=== PATIENT | male | born 1955 | race Caucasian/White ===

== ENCOUNTER 2019-10-31 06:25 | Inpatient (IN) | payer BC, OTHER ==
[~2019-10-31] VITALS: Ht 177.8 cm; Wt 75.0 kg
[2019-10-31] VITALS (20 sets, daily range): BP systolic 102–145; BP diastolic 53–98
[~2019-10-31 06:25] MED LIST: AMLO10TA8 PO; ASPI-630 PO; FLUT1DIS IH; LOSA-73 PO; MULT-18 PO; OMEG1CAP30 PO
[2019-10-31] MEDS ORDERED: MIDAZOLAM HCL/PF 2 MG/2 ML VIAL. IV ONE (06:30)
[2019-10-31] MEDS ORDERED: LIDOCAINE 1% Multi-Dose 20 ML VIAL. INJ ONE (06:30)
[2019-10-31] MEDS: fentaNYL PF VIAL 100 MCG/2 ML VIAL IV ONE ×2 (06:30→06:34)
[2019-10-31] MEDS ORDERED: BIVALIRUDIN 250 MG VIAL. IV ONE (06:40)
[2019-10-31] MEDS ORDERED: NITROGLYCERIN 200 MCG/2 ML SYRINGE FOR CATH/VASC LAB. IART ONE (06:40)
[2019-10-31] MEDS ORDERED: TICAGRELOR 90 MG TABLET. PO ONE (06:55)
[2019-10-31] MEDS: IODIXANOL 320 MG/ML 100 ML VIAL. IART ONE (07:00)
[2019-10-31] MEDS ORDERED: fentaNYL PF VIAL 100 MCG/2 ML VIAL ONE (08:42)
[2019-10-31] MEDS ORDERED: fentaNYL PF VIAL 100 MCG/2 ML VIAL IVP PRN (09:00)
[2019-10-31] MEDS ORDERED: CONTRAST GIVEN. MC PRN (09:00)
[2019-10-31] MEDS: IV 1/2 NORMAL SALINE 1,000 ML IV SCH ×2 (09:34→20:36)
--- NOTE | 2019-10-31 09:34 | PDOC ---
MODERATE SEDATION ASSESSMENT RISKS/ALTERNATIVES Risks/Alternatives Risks and alternatives of this type of sedation and procedure discussed with: RISK/ALTERNATIVES: Patient H & P ON CHART H & P H & P on chart and reviewed for co-morbid conditions and appropriate labs. H&P ON CHART: Yes STATUS PREG STATUS ASSESSED: N/A MEDS/ALLERGIES REVIEWED Meds/Allergies Reviewed Medications and Allergies including time and route of recently administered narcotics and sedatives. MEDS/ALLERGIES REVIEWED: Yes ASA RATING ASA RATING: III AIRWAY ASSESSMENT Airway Assessment Airway patency, oral function limitations, presence of caps, crowns, dentures, partials, and ability to extend neck assessed. AIRWAY ASSESSMENT: Yes MALLAMPATI SCORE MALLAMPATI SCORE: II PRE-SEDATION ASSESSMENT PRE-SEDATION ASSESSMENT: Yes KEDAR SANTCARUZ MD Oct 31, 2019 09:34
--- NOTE | 2019-10-31 09:37 | PDOC2 ---
CONSULT Date of Consult Date of Consult DATE: 10/31/19 TIME: 09:37 Reason for Consult Reason for Consult: Acute STEMI Identification/Chief Complaint Chief Complaint Chest pain Source Source: Chart review, Patient History of Present Illness Reason for Visit: 64-year-old male initially presented to [facility] with retrosternal chest pressure, 10/10 severity associated with mild shortness of breath that started at 2 AM today. He was found to have ST elevations in anterior leads and was transferred to [facility] after activating code STEMI. He denied any previous history of coronary artery disease. He also denied any orthopnea/PND, palpitations or syncope. Of note, he was recently admitted to [facility] for CHF throught to be acute on chronic diastolic HF. 2D echo at that showed EF 50-55%. He was DC'd with plans for outpatient ischemic evaluation. Past Medical History Past Medical History Hypertension PAD TIA Family History Family History Hypertension Social History Social History Patient smokes 2 pack cigarettes daily and stated that he quit 2 weeks ago. He has a history of heavy alcohol abuse and drinks approximately 6 pack of beer every day. He denied any drug abuse. Current Medications Current Medications Current Medications Fentanyl Citrate (Fentanyl 2ml Vial) 50 mcg PRN Q2HR PRN IVP PAIN Last administered on 10/31/19at 09:11; Start 10/31/19 at 09:00 Nitroglycerin (Nitroglycerin) 200 mcg 1X ONCE IART Last administered on 10/31/19at 06:50; Start 10/31/19 at 06:40; Stop 10/31/19 at 08:58; Status DC Heparin Sodium/ Sodium Chloride (HEPARIN for ARTERIAL LINE FLUSH) 1,000 unit 1X ONCE IART Last administered on 10/31/19at 06:30; Start 10/31/19 at 06:30; Stop 10/31/19 at 08:58; Status DC Heparin Sodium/ Sodium Chloride (HEPARIN for ARTERIAL LINE FLUSH) 1,000 unit 1X ONCE IART Last administered on 10/31/19at 06:30; Start 10/31/19 at 06:30; Stop 10/31/19 at 08:58; Status DC Midazolam HCl (Versed) 2 mg 1X ONCE IV Last administered on 10/31/19at 06:34; Start 10/31/19 at 06:30; Stop 10/31/19 at 08:58; Status DC Fentanyl Citrate (Fentanyl 2ml Vial) 100 mcg 1X ONCE IV Last administered on 10/31/19at 06:30; Start 10/31/19 at 06:30; Stop 10/31/19 at 08:58; Status DC Iodixanol (Visipaque 320) 100 ml 1X ONCE IART Last administered on 10/31/19at 07:00; Start 10/31/19 at 07:00; Stop 10/31/19 at 08:58; Status DC Bivalirudin (Angiomax) 250 mg 1X ONCE IV Last administered on 10/31/19at 06:40; Start 10/31/19 at 06:40; Stop 10/31/19 at 08:58; Status DC Ticagrelor (Brilinta) 180 mg 1X ONCE PO Last administered on 10/31/19at 07:20; Start 10/31/19 at 06:55; Stop 10/31/19 at 08:58; Status DC Lidocaine HCl (Lidocaine 1% 20ml Vial) 20 ml 1X ONCE INJ Last administered on 10/31/19at 06:30; Start 10/31/19 at 06:30; Stop 10/31/19 at 08:58; Status DC Info (CONTRAST GIVEN -- Rx MONITORING) 1 each PRN DAILY PRN MC SEE COMMENTS; Start 10/31/19 at 09:00; Stop 11/02/19 at 08:59 Active Scripts Active Reported Daily Vitamin (Multivitamin) 1 Each Tablet 1 Each PO Advair 100-50 Diskus (Fluticasone/Salmeterol) 1 Each Disk.w.dev 1 Puff IH BID Aspirin 81 Mg Tab.chew 1 Tab PO DAILY Amlodipine Besylate 10 Mg Tablet 1 Tab PO DAILY Losartan Potassium 50 Mg Tablet 1 Tab PO DAILY Allergies Allergies: Coded Allergies: No Known Drug Allergies (Unverified , 05/29/14) ROS PSYCHOLOGICAL ROS: No: Hallucinations Eyes: No Loss of vision HEENT: No: Epistaxis Respiratory: YES: Shortness of breath; No: Hemoptysis Cardiovascular: yes Chest Pain Genitourinary: No Hematuria Neurological: No Seizures Skin: No Rash Physical Exam General: Alert, Oriented X3 HEENT: Atraumatic Lungs: Clear to auscultation Heart: Regular rate Abdomen: Soft, No tenderness Extremities: No edema Psych/Mental Status: Mood NL Vitals VITALS Vital Signs Date Time Temp Pulse Resp B/P (MAP) Pulse Ox O2 Delivery O2 Flow Rate FiO2 10/31/19 09:11 20 99 Nasal Cannula 2.0 10/31/19 08:49 70 Assessment/Plan Assessment/Plan 1. Acute anterior wall ST elevation myocardial infarction: We will proceed with emergent cardiac catheterization and primary PCI/stent placement. Risks and benefits were explained and he is agreeable. Start aspirin, heparin, beta- blockers and statins. 2. Hypertension: Controlled 3. Tobacco and alcohol abuse: Advised on complete cessation Thank you for your consultation KEDAR SANTACRUZ MD Oct 31, 2019 09:37
[2019-10-31] MEDS ORDERED: NITROGLYCERIN SUBLINGUAL 0.4 MG BOTTLE OF 25. SL PRN (09:45)
[2019-10-31] MEDS ORDERED: ACETAMINOPHEN 325 MG TABLET. PO PRN (09:45)
[2019-10-31] MEDS ORDERED: FUROSEMIDE 40 MG/4 ML VIAL. IVP ONE (15:45)
[2019-10-31] MEDS: METOPROLOL TART IMMED RELEASE 25 MG TABLET. PO SCH (20:35)
[2019-10-31] MEDS: ATORVASTATIN CALCIUM 20 MG TABLET PO SCH (20:35)
[2019-11-01] VITALS (26 sets, daily range): BP systolic 99–145; BP diastolic 47–80
[2019-11-01] MEDS: IV 1/2 NORMAL SALINE 1,000 ML IV SCH (06:20)
--- NOTE | 2019-11-01 07:50 | CARD ---
MR#: [id number] Date of Study: 10/31/2019 Ordering Physician: KEDAR SANTACRUZ, Referring Physician: KEDAR SANTACRUZ Tech: Dione Olivares RDCS APPROVED REPORT EXAM: LIMITED Two-dimensional echocardiogram Other Information Quality : Good INDICATION LV Function:Systolic STEMI; Previous echo at [place] 10/19/19 LEFT VENTRICLE Severe hypokinesis of mid to distal anteroseptal wall and apical wall. Ejection fraction estimated at 35%. PERICARDIAL EFFUSION There is no evidence of significant pericardial effusion. Critical Notification Critical Value: No <Conclusion> Severe hypokinesis of mid to distal anteroseptal wall and apical wall. Ejection fraction estimated at 35%. There is no evidence of significant pericardial effusion. Signed by : Kedar Santacruz, Electronically Approved : 11/01/2019 07:50:00
[2019-11-01] MEDS: TICAGRELOR 90 MG TABLET. PO SCH ×2 (08:21→21:04)
[2019-11-01] MEDS: METOPROLOL TART IMMED RELEASE 25 MG TABLET. PO SCH ×2 (08:21→21:04)
[2019-11-01] MEDS: ASPIRIN ENTERIC COATED 81 MG TABLET.DR. PO SCH (08:21)
[2019-11-01] MEDS ORDERED: LIDOCAINE 1% PF 2 ML VIAL. ONE (10:10)
[2019-11-01] MEDS ORDERED: IODIXANOL 320 MG/ML 100 ML VIAL. ONE ×2 (10:10→12:17)
[2019-11-01] MEDS ORDERED: NITROGLYCERIN 200 MCG/2 ML SYRINGE FOR CATH/VASC LAB. ONE (10:36)
[2019-11-01] MEDS ORDERED: HEPARIN for IV BOLUS 10,000 UNIT/10 ML VIAL. ONE (10:36)
[2019-11-01] MEDS ORDERED: fentaNYL PF VIAL 100 MCG/2 ML VIAL ONE (10:36)
[2019-11-01] MEDS ORDERED: MIDAZOLAM HCL/PF 5 MG/5 ML VIAL. ONE (10:36)
[2019-11-01] MEDS ORDERED: VERAPAMIL 5 MG/2 ML VIAL. ONE (10:36)
[2019-11-01] MEDS ORDERED: BIVALIRUDIN 250 MG VIAL. IV ONE ×2 (11:07→11:45)
[2019-11-01] MEDS ORDERED: IODIXANOL 320 MG/ML 100 ML VIAL. IART ONE (11:45)
[2019-11-01] MEDS ORDERED: VERAPAMIL 5 MG/2 ML VIAL. IART ONE (11:45)
[2019-11-01] MEDS ORDERED: MIDAZOLAM HCL/PF 5 MG/5 ML VIAL. IV ONE (11:45)
[2019-11-01] MEDS ORDERED: LIDOCAINE 1% PF 2 ML VIAL. INJ ONE (11:45)
[2019-11-01] MEDS ORDERED: fentaNYL PF VIAL 100 MCG/2 ML VIAL IV ONE (11:45)
[2019-11-01] MEDS ORDERED: NITROGLYCERIN 200 MCG/2 ML SYRINGE FOR CATH/VASC LAB. IART ONE (11:45)
[2019-11-01] MEDS ORDERED: HEPARIN for IV BOLUS 10,000 UNIT/10 ML VIAL. IART ONE (11:45)
[2019-11-01] MEDS ORDERED: CONTRAST GIVEN. MC PRN (12:00)
[2019-11-01] MEDS ORDERED: NITROGLYCERIN 200 MCG/2 ML SYRINGE FOR CATH/VASC LAB. ICAR ONE (12:30)
--- NOTE | 2019-11-01 12:45 | PDOC ---
MODERATE SEDATION ASSESSMENT RISKS/ALTERNATIVES Risks/Alternatives Risks and alternatives of this type of sedation and procedure discussed with: RISK/ALTERNATIVES: Patient H & P ON CHART H & P H & P on chart and reviewed for co-morbid conditions and appropriate labs. H&P ON CHART: Yes STATUS PREG STATUS ASSESSED: N/A MEDS/ALLERGIES REVIEWED Meds/Allergies Reviewed Medications and Allergies including time and route of recently administered narcotics and sedatives. MEDS/ALLERGIES REVIEWED: Yes ASA RATING ASA RATING: III AIRWAY ASSESSMENT Airway Assessment Airway patency, oral function limitations, presence of caps, crowns, dentures, partials, and ability to extend neck assessed. AIRWAY ASSESSMENT: Yes MALLAMPATI SCORE MALLAMPATI SCORE: II PRE-SEDATION ASSESSMENT PRE-SEDATION ASSESSMENT: Yes KEDAR SANTACRUZ MD Nov 01, 2019 12:45
[2019-11-01] MEDS ORDERED: IV 1/2 NORMAL SALINE 1,000 ML IV SCH (12:46)
[2019-11-01] MEDS ORDERED: 0.9 % SODIUM CHLORIDE 10 ML DISP.SYRIN. IV PRN (13:00)
[2019-11-01] MEDS ORDERED: ACETAMINOPHEN 325 MG TABLET. PO PRN (13:00)
--- NOTE | 2019-11-01 14:44 | CARD ---
MR#: [id number] Date of Study: 11/01/2019 Ordering Physician: KEDAR SANTACRUZ, Referring Physician: KEDAR SANTACRUZ, Tech: KIA DIAMOND RTR APPROVED REPORT Technologist: KIA DIAMOND RTR Nurse: Madelaine Pal R.N. Procedure(s) performed: Successful PCI/drug-eluting stent placement to right coronary artery MODERATE SEDATION TIME: 71 MINUTES FLUORO TIME: 27.3 MIN DOSE: 87.5 GYCM2 CONTRAST: 122CC VISI INDICATION The indication(s) include : 64-year-old male underwent emergent PCI/FALGUNI to LAD in the setting of acut e STEMI on 10/31/2019. He presented today for staged PCI/FALGUNI to RCA.. [facility] Clinical Frailty Scale [facility] Clinical Frailty Scale: Managing Well Heart Failure Heart Failure: Yes If Yes, Newly Diagnosed: Yes If Yes, HF Type: Diastolic If Yes, NYHA Class: Class II PROCEDURE NARRATIVE After explaining the risks, benefits and alternative options, informed consent was obtained from johnny ent. Patient was brought to the cardiac Printer [facility] and his right wrist was prepped and draped in the u sual fashion after confirming a positive modified Brigido's test. Arterial access was obtained in the right radial artery and a 6 Bhutanese sheath was inserted. 6 Bhutanese JR4 guide catheter was used to enga ge the right coronary artery and selective angiography was performed that confirmed the previously de scribed along a calcified 90% stenosis in the midsegment and 80% stenosis in the distal segment. The stenosis and RCA were crossed with a 0.014 inch List[employer] pro-water guidewire. The lesions were pred ilated with a 3.0 x 12 mm Euphora balloon followed by [employer] NC emerge 3.0 x 15 mm noncomp liant balloon. The lesions were treated with overlapping 3.0 x 16 and 3.0 x 38 mm [employer] Promus Elite drug-eluting stents. Follow-up angiography showed resolution of the stenosis to 0% with good distal flow. The posterior descending branch had plaque shift resulting in complete closure. Attempts to cross the stent struts into the PDA using another pro-water wire were unsuccessful. Sinc e patient was chest pain-free, the PDA was small to medium caliber vessel and was beginning to show s lightly improved flow at the end of procedure, we decided to manage this medically. Patient tolerate d the procedure well. Hemostasis was achieved using TR band. There were no immediate complications. SOFI Flow SOFI Flow (Pre-Intervention): SOFI-2 SOFI Flow (Post-Intervention): SOFI-3 SOFI Flow SOFI Flow (Pre-Intervention): SOFI-2 SOFI Flow (Post-Intervention): SOFI-3 Conclusion Successful PCI/drug-eluting stents placement to the right coronary artery. Recommendations 1. Aspirin 81 mg daily 2. Ticagrelor 90 mg twice daily 3. Cardiovascular risk factor modification Signed by : Kedar Santacruz, Electronically Approved : 11/01/2019 14:44:09
--- NOTE | 2019-11-01 15:31 | NUR ---
SS following for discharge planning. SS reviewed pt chart and discussed with pt RN. Pt is from home with spouse and is currently on room air. Pt went to [facility]ou[facility] on 10/31/2019 and today. Possible discharge to home tomorrow. SS will continue to follow for discharge planning.
[2019-11-01] MEDS: ATORVASTATIN CALCIUM 20 MG TABLET PO SCH (21:04)
[2019-11-02] VITALS (11 sets, daily range): BP systolic 101–137; BP diastolic 56–78
[2019-11-02] MEDS: ASPIRIN ENTERIC COATED 81 MG TABLET.DR. PO SCH (09:04)
[2019-11-02] MEDS: TICAGRELOR 90 MG TABLET. PO SCH (09:04)
[2019-11-02] MEDS: METOPROLOL TART IMMED RELEASE 25 MG TABLET. PO SCH (09:05)
[2019-11-02] MEDS ORDERED: TICA90TA PO (12:25)
[2019-11-02] MEDS ORDERED: METO-239 PO (12:25)
[2019-11-02] MEDS ORDERED: ATOR20TA58 PO (12:25)
[2019-11-02] MEDS ORDERED: NITR0.4T24 SL (12:25)
--- NOTE | 2019-11-02 12:27 | DISCH ---
DISCHARGE INSTRUCTIONS Condition on Discharge Condition on Discharge: Stable Activity After Discharge Activity Instructions for Disc: Activity as tolerated, Avoid exertion Bathing Instructions: Shower-keep dressing dry, No Tub Bath until see Lifting Instructions after Dis: No heavy lifting, No pulling or pushing, Do not lift >10 pounds Diet after Discharge Diet after Discharge: Cardiac Diet Texture: Regular Liquid Texture: Thin Liquid Wound Incision Care Wound/Incision Care: Other, see below (See diagnosis specific handout) Contacting the after DC Call your doctor for: Concerns you may have Follow-Up Follow Up With: Dr. Morin 12/14/2019 ARIANE CURTIS APRN Nov 02, 2019 12:27
--- NOTE | 2019-11-02 14:30 | NUR ---
Discharge Note: [facility] Discharge instructions and discharge home medications reviewed with Patient and a copy given. All questions have been answered and understanding verbalized. The following instructions and handouts were given: Post heart cath and stent card Discontinued iv line and catheter intact. Patient discharged to home with self-care via private vehicle.
--- NOTE | 2019-11-02 19:05 | PDOC3 ---
Discharge Summary Visit Information Date of Admission: Oct 31, 2019 Date of Discharge: Nov 02, 2019 Admitting Diagnosis: Acute myocardial infarction Final Diagnosis Acute myocardial infarction Acute diastolic and systolic heart failure CAD Ischemic cardiomyopathy HTN HLP Tobacco and alcohol abuse Brief Hospital Course Allergies Allergies Coded Allergies Type Severity Reaction Last Updated Verified No Known Drug Allergies 05/29/14 No Vital Signs Vital Signs Date Time Temp Pulse Resp B/P (MAP) Pulse Ox O2 Delivery O2 Flow Rate FiO2 11/02/19 11:00 97.7 96 18 101/56 (71) 97 Room Air 97.7 11/01/19 12:37 2.0 Lab Results Laboratory Tests Test 11/01/19 05:00 Triglycerides Level 50 mg/dL (0-150) Cholesterol Level 119 mg/dL (0-200) LDL Cholesterol, Calculated 69 mg/dL (0-100) VLDL Cholesterol, Calculated 10 mg/dL (0-40) Non-HDL Cholesterol Calculated 79 mg/dL (0-129) HDL Cholesterol 40 mg/dL (40-60) Cholesterol/HDL Ratio 3.0 Brief Hospital Course Mr. Mejia is a 64 old male who initially presented to [facility] with CP and was diagnosed with acute anterior wall myocardial infarction. He was transferred to [facility] where he underwent cardiac cath that showed severe 2V CAD. He underwent primary PCI/FALGUNI to LAD and subsequent staged PCI/FALGUNI to RCA. His LVEF was 35% on 2D echo. He was hemodynamically stable and CP free at the time of DC. He will follow up with our office in one month. Plan to repeat echo in 3 mos to determine need for AICD implantation. We will refer patient for cardiac rehabilitation. Discharge Information Condition at Discharge: Stable Follow Up: Months (1) Disposition/Orders: D/C to Home Scheduled Aspirin (Aspirin) 81 Mg Tab.chew, 1 TAB PO DAILY, #90 Ref 3 (Reported) Entered as Reported by: CRISTAL ELDER on 05/29/14 08 Last Action: Reviewed on 10/31/19 08 by SCOTT ACKERMAN Atorvastatin Calcium (Atorvastatin Calcium) 20 Mg Tablet, 40 MG PO QHS for coronary artery disease, meek for 30 Days, #60 Ref 3 Prescribed by: ARIANE CURTIS APRN on 11/02/19 1225 Fluticasone/Salmeterol (Advair 100-50 Diskus) 1 Each Disk.w.dev, 1 PUFF IH BID, #1 Ref 3 (Reported) Entered as Reported by: CRISTAL ELDER on 05/29/14823 Last Action: Reviewed on 10/31/19848 by SCOTT ACKERMAN Losartan Potassium (Losartan Potassium) 50 Mg Tablet, 1 TAB PO DAILY, #90 Ref 3 (Reported) Entered as Reported by: CRISTAL ELDER on 05/29/14823 Last Action: Reviewed on 10/31/19848 by SCOTT ACKERMAN Metoprolol Succinate (Metoprolol Succinate ( Xl )) 25 Mg Tab.er.24h, 50 MG PO DAILY for CHF, CAD for 30 Days, #60 Ref 3 Prescribed by: ARIANE CURTIS APRN on 11/02/19 1225 Ticagrelor (Brilinta) 90 Mg Tablet, 90 MG PO BID for coronary artery disease for 30 Days, #60 Ref 3 Prescribed by: ARIANE CURTIS APRN on 11/02/19 1225 Scheduled PRN Nitroglycerin (Nitrostat) 0.4 Mg Tab.subl, 0.4 MG SL PRN Q5MIN PRN for CHEST PAIN for 30 Days, #30 Ref 1 Prescribed by: ARIANE CURTIS APRN on 11/02/19 1225 Miscellaneous Medications Multivitamin (Daily Vitamin) 1 Each Tablet, 1 EACH PO, (Reported) Entered as Reported by: CRISTAL ELDER on 05/29/14823 Last Action: Reviewed on 10/31/19848 by SCOTT ACKERMAN Discontinued Medications Amlodipine Besylate (Amlodipine Besylate) 10 Mg Tablet, 1 TAB PO DAILY, #90 Ref 3 (Reported) Entered as Reported by: CRISTAL ELDER on 05/29/14823 Last Action: Reviewed on 10/31/19848 by SCOTT ACKERMAN Justicifation of Admission Dx: Justifications for Admission: Justification of Admission Dx: Yes MN: Acute STEMI KEDAR SANTACRUZ MD Nov 02, 2019 19:05
== END 2019-11-02 13:12 | disposition home or self-care (01) | DRG 246 ==
LOC: 1 WEST ICU 06:25 → 2 SOUTH 11-02 10:10
PROVIDERS: ADMIT Internal Medicine Cardiovascular Disease; ATTEND Internal Medicine Cardiovascular Disease
PROC: 027035Z Dilation of Coronary Artery, One Artery with Two Drug-eluting Intraluminal Devices, Percutaneous Approach (ICD-10-PCS; principal; 2019-11-01)
PROC: B2101ZZ Fluoroscopy of Single Coronary Artery using Low Osmolar Contrast (ICD-10-PCS; 2019-11-01)
DX: I21.09 ST elevation (STEMI) myocardial infarction involving other coronary artery of anterior wall (principal); I50.43 Acute on chronic combined systolic (congestive) and diastolic (congestive) heart failure; E78.5 Hyperlipidemia, unspecified; F10.10 Alcohol abuse, uncomplicated; I11.0 Hypertensive heart disease with heart failure; I25.10 Atherosclerotic heart disease of native coronary artery without angina pectoris; I25.5 Ischemic cardiomyopathy; Z82.49 Family history of ischemic heart disease and other diseases of the circulatory system; Z86.73 Personal history of transient ischemic attack (TIA), and cerebral infarction without residual deficits; Z87.891 Personal history of nicotine dependence; I73.9 Peripheral vascular disease, unspecified
CPT/HCPCS: 36415; 80061; 92928; 93308; 99152; 99153; C1725; C1769; C1874; C1887; C1892; J0583; J1644; J1940; J2250; J3010; J3490; Q9967; C1713; G0378

== ENCOUNTER → 2019-12-13 | Outpatient (CLI) | payer BC ==
[2019-11-02 11:00] VITALS: BP 101/56
[~2019-12-13] MED LIST changes: +ATOR20TA58 PO; +METO-239 PO; +NITR0.4T24 SL; +TICA90TA PO
== END ==
LOC: LAB 14:00
PROVIDERS: ATTEND Internal Medicine Cardiovascular Disease
DX: Z20.828 Contact with and (suspected) exposure to other viral communicable diseases (principal)
CPT/HCPCS: U0003-CS

== ENCOUNTER 2019-12-15 08:33 | Inpatient (IN) | payer BC ==
[2019-12-15] VITALS (13 sets, daily range): BP systolic 92–133; BP diastolic 50–69
[~2019-12-15] VITALS: Ht 175.3 cm; Wt 73.0 kg
[~2019-12-15 08:33] MED LIST changes: +HEPARIN for ARTERIAL LINE 0 ML ONE; +IODIXANOL 320 MG/ML 100 ML VIAL. ONE; +LIDOCAINE 1% Multi-Dose 20 ML VIAL. ONE
[2019-12-15 09:11] LABS: RED BLOOD COUNT 3.31 x10^6/uL (4.30-5.70); RED CELL DISTRIBUTION WIDTH 19.9 % (11.5-14.5)
[2019-12-15 09:19] LABS: CALCIUM 8.6 mg/dL (8.5-10.1); CREATININE 1.1 mg/dL (0.7-1.3); GFR 67.8; POTASSIUM 4.3 mmol/L (3.5-5.1)
[2019-12-15 09:26] LABS: PROTHROMBIN TIME PATIENT 13.8 SEC (11.7-14.0)
[2019-12-15 09:38] LABS: HEMOGLOBIN 6.2 g/dL (13.0-17.5)
[2019-12-15 09:39] LABS: HEMATOCRIT 20.9 % (39.0-53.0)
--- NOTE | 2019-12-15 09:54 | PDOC1 ---
History and Physical Date of Admission Date of Admission DATE: 12/15/19 TIME: 09:53 Identification/Chief Complaint Chief Complaint SEEN IN [facility] FOR ANGIOGRAM, CANCELLED DUE TO SEVERE ANEMIA, TRANSFUSED 2 UNITS Stent(s) placement in 10/2019 on Brilinta and ASA and h/o PVD w/ RLE pain here for femoral runoff which was cancelled due to anemia. Denies hematemesis, hematochezia, and melena Past Medical History Cardiovascular: CAD, HTN Family History Family History: High Cholestrol, Hypertension Social History Smoke: Quit ALCOHOL: none Drugs: None Current Medications Current Medications Current Medications Iodixanol (Visipaque 320) 100 ml STK-MED ONCE .ROUTE ; Start 12/15/19 at 07:47; Stop 12/15/19 at 07:47; Status DC Lidocaine HCl (Lidocaine 1% 20ml Vial) 20 ml STK-MED ONCE .ROUTE ; Start 12/15/19 at 07:47; Stop 12/15/19 at 07:47; Status DC Heparin Sodium/ Sodium Chloride 0 ml @ As Directed STK-MED ONCE .ROUTE ; Start 12/15/19 at 07:47; Stop 12/15/19 at 07:48; Status DC Sodium Chloride 1,000 ml @ 60 mls/hr [id number] IV ; Start 12/15/19 at 08:49; Stop 12/16/19 at 08:48 Active Scripts Active Metoprolol Succinate ( Xl ) (Metoprolol Succinate) 25 Mg Tab.er.24h 50 Mg PO DAILY 30 Days Nitrostat (Nitroglycerin) 0.4 Mg Tab.subl 0.4 Mg SL PRN Q5MIN PRN 30 Days Atorvastatin Calcium 20 Mg Tablet 40 Mg PO QHS 30 Days Brilinta (Ticagrelor) 90 Mg Tablet 90 Mg PO BID 30 Days Reported Daily Vitamin (Multivitamin) 1 Each Tablet 1 Each PO Advair 100-50 Diskus (Fluticasone/Salmeterol) 1 Each Disk.w.dev 1 Puff IH BID Aspirin 81 Mg Tab.chew 1 Tab PO DAILY Losartan Potassium 50 Mg Tablet 1 Tab PO DAILY Allergies Allergies: Coded Allergies: No Known Drug Allergies (Unverified , 05/29/14) ROS General: No: Chills, Night Sweats, Fatigue, Malaise, Appetite, Other PSYCHOLOGICAL ROS: No: Anxiety, Behavioral Disorder, Concentration difficultie, Decreased libido, Depression, Disorientation, Hallucinations, Hostility, Irritablity, Memory difficulties, Mood Swings, Obsessive thoughts, Physical abuse, Sexual abuse, Sleep disturbances, Suicidal ideation, Other Eyes: No Blurry vision, No Decreased vision, No Double vision, No Dry eyes, No Excessive tearing, No Eye Pain, No Itchy Eyes, No Loss of vision, No Photophobia, No Scotomata, No Uses contacts, No Uses glasses, No Other HEENT: No: Heacaches, Visual Changes, Hearing change, Nasal congestion, Nasal discharge, Oral lesions, Sinus pain, Sore Throat, Epistaxis, Sneezing, Snoring, Tinnitus, Vertigo, Vocal changes, Other ALLERGY AND IMMUNOLOGY: No: Hives, Insect Bite Sensitivity, Itchy/Watery Eyes, Nasal Congestion, Post Nasal Drip, Seasonal Allergies, Other Hematological and Lymphatic: YES: Bleeding Problems; No: Blood Clots, Blood Transfusions, Brusing, Night Sweats, Pallor, Swollen Lymph Nodes, Other ENDOCRINE: No: Breast Changes, Galactorrhea, Hair Pattern Changes, Hot Flashes, Malaise/lethargy, Mood Swings, Palpitations, Polydipsia/polyuria, Skin Changes, Temperature Intolerance, Unexpected Weight Changes, Other Breast: No New/Changing Breast Lumps, No Nipple changes, No Nipple discharge, No Other Respiratory: No: Cough, Hemoptysis, Orthopnea, Pleuritic Pain, Shortness of breath, SOB with excertion, Sputum Changes, Stridor, Tachypnea, Wheezing, Other Cardiovascular: No Chest Pain, No Palpitations, No Orthopnea, No Paroxysmal Noc. Dyspnea, No Edema, No Lt Headedness, No Other Gastrointestinal: No Nausea, No Vomiting, No Abdominal Pain, No Diarrhea, No Constipation, No Melena, No Hematochezia, No Other Genitourinary: No Dysuria, No Frequency, No Incontinence, No Hematuria, No Retention, No Discharge, No Urgency, No Pain, No Flank Pain, No Other, No , No , No , No , No , No , No Musculoskeletal: No Gait Disturbance, No Joint Pain, No Joint Stiffness, No Joint Swelling, No Muscle Pain, No Muscular Weakness, No Pain In:, No Swelling In:, No Other Neurological: No Behavorial Changes, No Bowel/Bladder ControlChng, No Confusion, No Dizziness, No Gait Disturbance, No Headaches, No Impaired Coord/balance, No Memory Loss, No Numbness/Tingling, No Seizures, No Speech Problems, No Tremors, No Visual Changes, No Weakness, No Other Skin: No Dry Skin, No Eczema, No Hair Changes, No Lumps, No Mole Changes, No Mottling, No Nail Changes, No Pruritus, No Rash, No Skin Lesion Changes, No Other, No Acne Physical Exam General: Alert, Oriented X3, Cooperative, No acute distress HEENT: PERRLA Lungs: Clear to auscultation, Normal air movement Heart: RRR Breasts: Normal, Rt breast nml w/o mass, Lt breast nml w/o mass, Nipples normal Abdomen: Normal bowel sounds, Soft, No tenderness, No hepatosplenomegaly, No masses Rectal Exam: not examined PELVIC: Examination not indicated Extremities: No cyanosis Neuro: Normal speech, Strength at 5/5 X4 ext, Cranial nerves 3-12 NL Psych/Mental Status: Mental status NL, Mood NL Vitals Vitals Vital Signs Date Time Temp Pulse Resp B/P (MAP) Pulse Ox O2 Delivery O2 Flow Rate FiO2 12/15/19 09:11 Room Air 12/15/19 09:08 98.5 82 20 106/63 (77) 98 98.5 Labs Labs Laboratory Tests Test 12/15/19 09:00 White Blood Count 10.0 x10^3/uL (4.0-11.0) Red Blood Count 3.31 x10^6/uL (4.30-5.70) Hemoglobin 6.2 g/dL (13.0-17.5) Hematocrit 20.9 % (39.0-53.0) Mean Corpuscular Volume 63 fL (79-100) Mean Corpuscular Hemoglobin 19 pg (25-35) Mean Corpuscular Hemoglobin Concent 30 g/dL (31-37) Red Cell Distribution Width 19.9 % (11.5-14.5) Platelet Count 422 x10^3/uL (140-400) Prothrombin Time 13.8 SEC (11.7-14.0) Prothromb Time International Ratio 1.1 (0.8-1.1) Sodium Level 131 mmol/L (136-145) Potassium Level 4.3 mmol/L (3.5-5.1) Chloride Level 98 mmol/L (98-107) Carbon Dioxide Level 24 mmol/L (21-32) Anion Gap 9 (6-14) Blood Urea Nitrogen 12 mg/dL (8-26) Creatinine 1.1 mg/dL (0.7-1.3) Estimated GFR (Cockcroft-Gault) 67.8 Glucose Level 99 mg/dL (70-99) Calcium Level 8.6 mg/dL (8.5-10.1) Laboratory Tests Test 12/15/19 09:00 White Blood Count 10.0 x10^3/uL (4.0-11.0) Red Blood Count 3.31 x10^6/uL (4.30-5.70) Hemoglobin 6.2 g/dL (13.0-17.5) Hematocrit 20.9 % (39.0-53.0) Mean Corpuscular Volume 63 fL (79-100) Mean Corpuscular Hemoglobin 19 pg (25-35) Mean Corpuscular Hemoglobin Concent 30 g/dL (31-37) Red Cell Distribution Width 19.9 % (11.5-14.5) Platelet Count 422 x10^3/uL (140-400) Prothrombin Time 13.8 SEC (11.7-14.0) Prothromb Time International Ratio 1.1 (0.8-1.1) Sodium Level 131 mmol/L (136-145) Potassium Level 4.3 mmol/L (3.5-5.1) Chloride Level 98 mmol/L (98-107) Carbon Dioxide Level 24 mmol/L (21-32) Anion Gap 9 (6-14) Blood Urea Nitrogen 12 mg/dL (8-26) Creatinine 1.1 mg/dL (0.7-1.3) Estimated GFR (Cockcroft-Gault) 67.8 Glucose Level 99 mg/dL (70-99) Calcium Level 8.6 mg/dL (8.5-10.1) Images Images APPROVED REPORT Technologist: RT Veena (R) Nurse: Tracey Randhawa RN Procedure(s) performed: 1. Left heart catheterization, selective coronary angiography 2. Successful PCI/drug-eluting stent placement to the left anti-descending artery FLUORO TIME: 11.2 MIN DOSE: 124 Gycm2 Contrast: 174 ml Moderate Sedation: 50 min INDICATION The indication(s) include : Acute anterior wall ST elevation myocardial infarction. CSHA Clinical Frailty Scale CSHA Clinical Frailty Scale: Managing Well Heart Failure Heart Failure: Yes If Yes, Newly Diagnosed: No If Yes, HF Type: Diastolic If Yes, NYHA Class: Class II PROCEDURE NARRATIVE After explaining the risks, benefits and alternative options, informed consent was obtained for patient. Patient was brought to the cardiac Management Services Technician and his right groin was prepped and draped in the usual fashion. 20 cc of 2% lidocaine was infiltrated into the skin and subcutaneous tissues for local anesthesia. Arterial access was obtained in the right common femoral artery with a 6 Mauritanian sheath was inserted. 6 [place]ian JL 4 and 6 [place] JR4 catheters were used to perf orm selective angiography of the left and right coronary arteries. 6 [place]ian pigtail catheter was used to measure LVEDP and transaortic gradients. Left ventriculography was not performed due to elevated EDP. The following findings were noted: FINDINGS 1. Hemodynamics: Elevated left ventricular end-diastolic pressure of 40 mmHg consistent with acute diastolic heart failure. No pullback gradient across the aortic valve. 2. Coronary angiography: a. The left main coronary artery arose from the left sinus of Valsalva, gave rise to the left anterior descending and left circumflex arteries and did not show any significant stenosis. b. The left anterior descending artery showed calcified 100% occlusion in the midsegment. c. The left circumflex artery did not show any significant stenosis. d. The right coronary artery was a large and dominant vessel arising from the right sinus of Valsalva and showed 90% stenosis with ulcerated plaque in the midsegment and 80% stenosis in the distal segment. INTERVENTION Left main coronary artery was engaged with a 6 [place]ian XB 3.5 guide catheter and the stenosis in the midsegment of the left anterior descending artery was crossed with a 0.014 inch [employer] pro-water guidewire. This was predilated with a 2.5 x 12 mm trek balloon. Subsequently, this was successfully treated with a 2.75 x 28 mm Xience drug eluting stent. Follow-up angiography showed resolution of the stenosis to 0% with SOFI-3 distal flow. Patient tolerated the procedure well. Hemostasis was achieved using Angio-Seal. There were no immediate complications. SOFI Flow SOFI Flow (Pre-Intervention): OSFI-0 SOFI Flow (Post-Intervention): SOFI-3 Conclusion 1. Severe two-vessel coronary disease involving the left anterior descending artery and the right coronary artery as described above. 2. Significantly elevated LVEDP consistent with acute diastolic heart failure. 3. Successful PCI/drug-eluting stent placement to the left anterior descending artery. Technologist: KIA DIAMOND RTR Nurse: Madelaine Pal R.N. Procedure(s) performed: Successful PCI/drug-eluting stent placement to right coronary artery MODERATE SEDATION TIME: 71 MINUTES FLUORO TIME: 27.3 MIN DOSE: 87.5 GYCM2 CONTRAST: 122CC VISI INDICATION The indication(s) include : 64-year-old male underwent emergent PCI/FALGUNI to LAD in the setting of acute STEMI on 10/31/2019. He presented today for staged PCI/FALGUNI to RCA.. [facility] Clinical Frailty Scale [facility] Clinical Frailty Scale: Managing Well Heart Failure Heart Failure: Yes If Yes, Newly Diagnosed: Yes If Yes, HF Type: Diastolic If Yes, NYHA Class: Class II PROCEDURE NARRATIVE After explaining the risks, benefits and alternative options, informed consent was obtained from patient. Patient was brought to the cardiac Management Services Technician and his right wrist was prepped and draped in the usual fashion after confirming a positive modified Brigido's test. Arterial access was obtained in the right radial artery and a 6 Mauritanian sheath was inserted. 6 Mauritanian JR4 guide catheter was used to engage the right coronary artery and selective angiography was performed that confirmed the previously described along a calcified 90% stenosis in the midsegment and 80% stenosis in the distal segment. The stenosis and RCA were crossed with a 0.014 inch [employer] pro-water guidewire. The lesions were predilated with a 3.0 x 12 mm Euphora balloon followed by [employer] [place] emerge 3.0 x 15 mm noncompliant balloon. The lesions were treated with overlapping 3.0 x 16 and 3.0 x 38 mm [employer] Promus Elite drug-eluting stents. Follow-up angiography showed resolution of the stenosis to 0% with good distal flow. The posterior descending branch had plaque shift resulting in complete closure. Attempts to cross the stent struts into the PDA using another pro-water wire were unsuccessful. Since patient was chest pain- free, the PDA was small to medium caliber vessel and was beginning to show slightly improved flow at the end of procedure, we decided to manage this medically. Patient tolerated the procedure well. Hemostasis was achieved using TR band. There were no immediate complications. SOFI Flow SOFI Flow (Pre-Intervention): SOFI-2 SOFI Flow (Post-Intervention): SOFI-3 SOFI Flow SOFI Flow (Pre-Intervention): SOFI-2 SOFI Flow (Post-Intervention): SOFI-3 Conclusion Successful PCI/drug-eluting stents placement to the right coronary artery. Recommendations 1. Aspirin 81 mg daily 2. Ticagrelor 90 mg twice daily 3. Cardiovascular risk factor modification Signed by : Kedar Santacruz Electronically Approved : 11/01/2019 14:44:09 DICTATED and SIGNED BY: KEDAR SANTACRUZ MD DATE: 11/01/19 1241 MR#: [id number] Date of Study: 10/31/2019 Ordering Physician: KEDAR SANTACRUZ, Referring Physician: KEDAR SANTACRUZ, Tech: Dione Olivares RDCS APPROVED REPORT EXAM: LIMITED Two-dimensional echocardiogram Other Information Quality : Good INDICATION LV Function:Systolic STEMI; Previous echo at [place] 10/19/19 LEFT VENTRICLE Severe hypokinesis of mid to distal anteroseptal wall and apical wall. Ejection fraction estimated at 35%. PERICARDIAL EFFUSION There is no evidence of significant pericardial effusion. Critical Notification Critical Value: No <Conclusion> Severe hypokinesis of mid to distal anteroseptal wall and apical wall. Ejection fraction estimated at 35%. There is no evidence of significant pericardial effusion. Signed by : Gianna Marially Approved : 11/01/2019 07:50:00 DICTATED and SIGNED BY: KEDAR SANTACRUZ MD DATE: 10/31/19 7786 VTE Prophylaxis Ordered VTE Prophylaxis Devices: Yes VTE Pharmacological Prophylaxi: Contraindicated Assessment/Plan Assessment/Plan impression MARKED ANEMIA, POSSIBLE GI BLEED, MICROCYTIC CAD Ischemic cardiomyopathy HX Successful PCI/drug-eluting stents placement to the right coronary artery. 11/01/19 Severe hypokinesis of mid to distal anteroseptal wall and apical wall. Ejection fraction estimated at 35%.11/05 ECHO HTN HLP Tobacco and alcohol abuse PLAN ADMIT TRANSFUSE Consult DR MACDONALD CONSULT GI S top ASA and Brilinta, switch to Plavix. hold Plavix 2 days prior to endoscopy.EGD and colonoscopy as outpt. PROTONIX stopping alcohol use needed 76 min pt exam, chart review, > 50% of time spent with exam, chart review, pt care coordination is dpoa Using artificial nutrition and hydration near the end of life. If you are not able to eat, you may be fed through a feeding tube that is threaded through the nose down to your stomach. If tube feeding is still needed for an extended period, a feeding tube may be surgically inserted directly into your stomach. Hand feeding (sometimes called assisted oral feeding) is an alternative to tube feeding. This approach may have fewer risks, especially for people with dementia. If you are not able to drink, you may be provided with IV fluids. These are delivered through a thin plastic tube inserted into a vein. Artificial nutrition and hydration can be helpful if you are recovering from an illness. However, studies have shown that artificial nutrition toward the end of life does not meaningfully prolong life. Artificial nutrition and hydration may also be harmful if the dying body cannot use the nutrition properly. CPR (cardiopulmonary resuscitation) Ventilator use Artificial nutrition (tube feeding) and artificial hydration (IV, or intraven ous, fluids) Comfort care What is CPR? Cardiopulmonary resuscitation might restore your heartbeat if your heart stops or is in a life-threatening abnormal rhythm. It involves repeatedly pushing on the chest with force, while putting air into the lungs. This force has to be quite strong, and sometimes ribs are broken or a lung collapses. Electric shocks, known as defibrillation, and medicines might also be used as part of the process. The heart of a young, otherwise healthy person might resume beating normally after CPR. Often, CPR does not succeed in older adults who have multiple chronic illnesses or who are already frail. Using a ventilator as emergency treatment. Ventilators are machines that help you breathe. A tube connected to the ventilator is put through the throat into the trachea (windpipe) so the machine can force air into the lungs. Putting the tube down the throat is called intubation. Because the tube is uncomfortable, medicines are often used to keep you sedated while on a ventilator. If you are expected to remain on a ventilator for a long time, a doctor may perform a tracheotomy or "trach" (rhymes with "make"). During this bedside surgery, the tube is inserted directly into the trachea through a hole in the neck. For long- term help with breathing, a trach is more comfortable, and sedation is not needed. People using such a breathing tube are not able to speak without special help because exhaled air does not go past their vocal cords. Using artificial nutrition and hydration near the end of life. If you are not able to eat, you may be fed through a feeding tube that is threaded through the nose down to your stomach. If tube feeding is still needed for an extended period, a feeding tube may be surgically inserted directly into your stomach. Hand feeding (sometimes called assisted oral feeding) is an alternative to tube feeding. This approach may have fewer risks, especially for people with dementia. Justifications for Admission Other Justification TULIO HOLDER MD Dec 15, 2019 09:53
--- NOTE | 2019-12-15 11:01 | NUR ---
Dr Javier office called for consult, spoke to Lori, she will message Flor HIGGINS. MEJIA RN
--- NOTE | 2019-12-15 11:53 | PDOC2 ---
GI CONSULT Date of Service: DATE: 12/15/19 TIME: 11:43 Reason For Consult: anemia HPI: HPI: 64 y/o male w/ h/o CAD s/p stent(s) placement in 10/2019 on Brilinta and ASA and h/o PVD w/ RLE pain here for femoral runoff which was cancelled due to anemia. Denies hematemesis, hematochezia, and melena. Rare heartburn after eating Azeri food, maybe takes Rolaids sometimes. No dysphagia, n/v, abd pain, diarrhea, or constipation. Has lost some weight after he quit drinking soda. No previous EGD or colonoscopy, maybe had an UGI once. No GB, liver, pancreas, or PUD history. Rare NSAIDs. PMH: PMH: [place], CAD w/ stents, HTN, HLD, TIA, PVD knee surgery FH: Family History: No pertinent hx (denies GI cancers) Social History: Smoke: Quit (59 days ago) ALCOHOL: occassional Drugs: None ROS: GEN: Denies fevers, chills, sweats HEENT: Denies blurred vision, sore throat CV: Denies chest pain RESP: Denies shortness of air, cough GI: Per HPI : Denies hematuria, dysuria ENDO: +weight loss NEURO: Denies confusion, dizziness MSK: +RLE throbbing SKIN: Denies jaundice, pruritus Vitals: Vitals: Vital Signs Date Time Temp Pulse Resp B/P (MAP) Pulse Ox O2 Delivery O2 Flow Rate FiO2 12/15/19 09:11 Room Air 12/15/19 09:08 98.5 82 20 106/63 (77) 98 98.5 Labs: Labs: Laboratory Tests Test 12/15/19 09:00 White Blood Count 10.0 x10^3/uL (4.0-11.0) Red Blood Count 3.31 x10^6/uL (4.30-5.70) Hemoglobin 6.2 g/dL (13.0-17.5) Hematocrit 20.9 % (39.0-53.0) Mean Corpuscular Volume 63 fL (79-100) Mean Corpuscular Hemoglobin 19 pg (25-35) Mean Corpuscular Hemoglobin Concent 30 g/dL (31-37) Red Cell Distribution Width 19.9 % (11.5-14.5) Platelet Count 422 x10^3/uL (140-400) Prothrombin Time 13.8 SEC (11.7-14.0) Prothromb Time International Ratio 1.1 (0.8-1.1) Sodium Level 131 mmol/L (136-145) Potassium Level 4.3 mmol/L (3.5-5.1) Chloride Level 98 mmol/L (98-107) Carbon Dioxide Level 24 mmol/L (21-32) Anion Gap 9 (6-14) Blood Urea Nitrogen 12 mg/dL (8-26) Creatinine 1.1 mg/dL (0.7-1.3) Estimated GFR (Cockcroft-Gault) 67.8 Glucose Level 99 mg/dL (70-99) Calcium Level 8.6 mg/dL (8.5-10.1) Allergies: Coded Allergies: No Known Drug Allergies (Unverified , 05/29/14) PE: GEN: NAD HEENT: Atraumatic, PERRL LUNGS: diminished HEART: RRR ABD: NABS, S/ND/NT EXTREMITY: No edema SKIN: No rashes, no jaundice NEURO/PSYCH: A & O 3 A/P: A/P: Microcytic anemia - no obvious bleeding Rare heartburn Weight loss - attributed to stopping soda CRC screen - none CAD, PVD - cardiac stents placed in 10/2019 COVID negative 12/13/19 -- D/w cardiology - plans to stop ASA and Brilinta, switch to Plavix. May hold Plavix 2 days prior to endoscopy. Will pursue EGD and colonoscopy as outpt. Check iron for completeness sake. PPI for h/o heartburn. Agree w/ transfusion. Okay to eat per GI. MATIAS MAR Dec 15, 2019 11:53
[2019-12-15] MEDS: IV NORMAL SALINE 1000ML BAG 1,000 ML IV SCH (16:04)
[2019-12-15] MEDS ORDERED: NITROGLYCERIN SUBLINGUAL 0.4 MG BOTTLE OF 25. SL PRN (16:15)
[2019-12-15] MEDS ORDERED: CYCLOBENZAPRINE 10 MG TABLET. PO PRN (16:30)
[2019-12-15] MEDS ORDERED: FUROSEMIDE 20 MG/2 ML VIAL. IVP ONE (17:30)
--- NOTE | 2019-12-15 19:29 | PDOC2 ---
CONSULT Date of Consult Date of Consult DATE: 12/15/19 TIME: 19:28 Reason for Consult Reason for Consult: PAD Referring Physician Referring Physician: Dr. Kirk Identification/Chief Complaint Chief Complaint Claudication Source Source: Chart review, Patient History of Present Illness Reason for Visit: 64 y/o male who recently underwent staged PCI/FALGUNI top LAD and RCA and placed on DAPT with Brilinta presented for aortogram secondary to lifestyle limiting claudication. However pre-procedure labs showed Hgb 6.2 and hence procedure was canceled. He denied any hematemesis, melena or hematochezia. He denied any prior GI issues. He denied any chest pain, orthopnea/PND, palps or syncope. Past Medical History Cardiovascular: CAD, HTN Family History Family History: High Cholestrol, Hypertension Social History Quit ALCOHOL: none Drugs: None Current Medications Current Medications Current Medications Iodixanol (Visipaque 320) 100 ml STK-MED ONCE .ROUTE ; Start 12/15/19 at 07:47; Stop 12/15/19 at 07:47; Status DC Lidocaine HCl (Lidocaine 1% 20ml Vial) 20 ml STK-MED ONCE .ROUTE ; Start 12/15/19 at 07:47; Stop 12/15/19 at 07:47; Status DC Heparin Sodium/ Sodium Chloride 0 ml @ As Directed STK-MED ONCE .ROUTE ; Start 12/15/19 at 07:47; Stop 12/15/19 at 07:48; Status DC Sodium Chloride 1,000 ml @ 60 mls/hr [id number] IV Last administered on 12/15/19at 16:04; Start 12/15/19 at 08:49; Stop 12/16/19 at 08:48 Clopidogrel Bisulfate (Plavix) 75 mg DAILYWBKFT PO ; Start 12/16/19 at 08:00; Stop 12/17/19 at 07:59 Pantoprazole Sodium (Protonix) 40 mg DAILYAC PO ; Start 12/16/19 at 07:30; Stop 12/17/19 at 07:29 Atorvastatin Calcium (Lipitor) 40 mg QHS PO ; Start 12/15/19 at 21:00 Losartan Potassium (Cozaar) 50 mg DAILY PO ; Start 12/16/19 at 09:00 Metoprolol Succinate (Toprol Xl) 50 mg DAILY PO ; Start 12/16/19 at 09:00 Nitroglycerin (Nitrostat) 0.4 mg PRN Q5MIN PRN SL CHEST PAIN; Start 12/15/19 at 16:15 Non-Formulary Medication (Fluticasone/ Salmeterol (Advair 100-50 Diskus)) 1 puff BID IH ; Start 12/15/19 at 21:00; Status UNV Multivitamins (Thera M Plus) 1 tab DAILY PO ; Start 12/16/19 at 09:00 Albuterol Sulfate (Ventolin Neb Soln) 2.5 mg RTQID NEB ; Start 12/15/19 at 20:00 Budesonide (Pulmicort) 0.5 mg RTBID NEB ; Start 12/15/19 at 20:00 Cyclobenzaprine HCl (Flexeril) 5 mg PRN QHS PRN PO MUSCLE SPASMS; Start 12/15/19 at 16:30 Furosemide (Lasix) 20 mg 1X ONCE IVP Last administered on 12/15/19at 18:38; Start 12/15/19 at 17:30; Stop 12/15/19 at 17:31; Status DC Active Scripts Active Metoprolol Succinate ( Xl ) (Metoprolol Succinate) 25 Mg Tab.er.24h 50 Mg PO DAILY 30 Days Nitrostat (Nitroglycerin) 0.4 Mg Tab.subl 0.4 Mg SL PRN Q5MIN PRN 30 Days Atorvastatin Calcium 20 Mg Tablet 40 Mg PO QHS 30 Days Reported Daily Vitamin (Multivitamin) 1 Each Tablet 1 Each PO Advair 100-50 Diskus (Fluticasone/Salmeterol) 1 Each Disk.w.dev 1 Puff IH BID Aspirin 81 Mg Tab.chew 1 Tab PO DAILY Losartan Potassium 50 Mg Tablet 1 Tab PO DAILY Allergies Allergies: Coded Allergies: No Known Drug Allergies (Unverified , 05/29/14) ROS PSYCHOLOGICAL ROS: No: Hallucinations Eyes: No Loss of vision HEENT: No: Epistaxis Respiratory: No: Hemoptysis, Shortness of breath Cardiovascular: No Chest Pain Gastrointestinal: No Vomiting, No Diarrhea, No Melena Genitourinary: No Hematuria Neurological: No Seizures Skin: No Rash Physical Exam General: Alert, Oriented X3 HEENT: Atraumatic Lungs: Clear to auscultation Heart: Regular rate Abdomen: Soft Neuro: Normal speech Psych/Mental Status: Mood NL Vitals VITALS Vital Signs Date Time Temp Pulse Resp B/P (MAP) Pulse Ox O2 Delivery O2 Flow Rate FiO2 12/15/19 18:04 98.2 91 17 121/69 98.2 12/15/19 15:00 94 Room Air Labs Labs Laboratory Tests Test 12/15/19 09:00 White Blood Count 10.0 x10^3/uL (4.0-11.0) Red Blood Count 3.31 x10^6/uL (4.30-5.70) Hemoglobin 6.2 g/dL (13.0-17.5) Hematocrit 20.9 % (39.0-53.0) Mean Corpuscular Volume 63 fL (79-100) Mean Corpuscular Hemoglobin 19 pg (25-35) Mean Corpuscular Hemoglobin Concent 30 g/dL (31-37) Red Cell Distribution Width 19.9 % (11.5-14.5) Platelet Count 422 x10^3/uL (140-400) Prothrombin Time 13.8 SEC (11.7-14.0) Prothromb Time International Ratio 1.1 (0.8-1.1) Sodium Level 131 mmol/L (136-145) Potassium Level 4.3 mmol/L (3.5-5.1) Chloride Level 98 mmol/L (98-107) Carbon Dioxide Level 24 mmol/L (21-32) Anion Gap 9 (6-14) Blood Urea Nitrogen 12 mg/dL (8-26) Creatinine 1.1 mg/dL (0.7-1.3) Estimated GFR (Cockcroft-Gault) 67.8 Glucose Level 99 mg/dL (70-99) Calcium Level 8.6 mg/dL (8.5-10.1) Iron Level 9 ug/dL (65-175) Total Iron Binding Capacity 486 ug/dL (250-450) Iron Saturation 2 % (15-34) Laboratory Tests Test 12/15/19 09:00 White Blood Count 10.0 x10^3/uL (4.0-11.0) Red Blood Count 3.31 x10^6/uL (4.30-5.70) Hemoglobin 6.2 g/dL (13.0-17.5) Hematocrit 20.9 % (39.0-53.0) Mean Corpuscular Volume 63 fL (79-100) Mean Corpuscular Hemoglobin 19 pg (25-35) Mean Corpuscular Hemoglobin Concent 30 g/dL (31-37) Red Cell Distribution Width 19.9 % (11.5-14.5) Platelet Count 422 x10^3/uL (140-400) Prothrombin Time 13.8 SEC (11.7-14.0) Prothromb Time International Ratio 1.1 (0.8-1.1) Sodium Level 131 mmol/L (136-145) Potassium Level 4.3 mmol/L (3.5-5.1) Chloride Level 98 mmol/L (98-107) Carbon Dioxide Level 24 mmol/L (21-32) Anion Gap 9 (6-14) Blood Urea Nitrogen 12 mg/dL (8-26) Creatinine 1.1 mg/dL (0.7-1.3) Estimated GFR (Cockcroft-Gault) 67.8 Glucose Level 99 mg/dL (70-99) Calcium Level 8.6 mg/dL (8.5-10.1) Iron Level 9 ug/dL (65-175) Total Iron Binding Capacity 486 ug/dL (250-450) Iron Saturation 2 % (15-34) Assessment/Plan Assessment/Plan 1. Anemia probably from GIB secondary to DAPT. Stop ticagrelor, ASA and start ASA due to recent FALGUNI placement. GI team consulted for further workup possibly with EGD/colonoscopy. Transfuse to keep Hgb >8.0. 2. CAD s/p recent PCI/FALGUNI to LAD and RCA, stable and chest pain free. Continue current secondary prevention measures. 3. Chr systolic heart failure, ischemic CMP. LVEF 35%. Clinically well compensated. Continue current medical regimen. Plan to repeat echo in 3 mos to evaluate need for AICD implantation.. 4. HTN: well controlled 5. HLP: statins 6. PAD with Claudication, plan for aortogram once anemia/GIB workup is completed. KEDAR SANTACRUZ MD Dec 15, 2019 19:28
[2019-12-15] MEDS: ALBUTEROL SULFATE 2.5 MG/3 ML NEBU. NEB SCH (20:00)
[2019-12-15] MEDS: BUDESONIDE 0.5 MG/2 ML NEBU. NEB SCH (20:00)
[2019-12-15] MEDS ORDERED: NON FORMULARY ITEM (Fluticasone/Salmeterol (Advair 100-50 Diskus) 1 PUFF) IH SCH (21:00)
[2019-12-15] MEDS: ATORVASTATIN CALCIUM 20 MG TABLET PO SCH (22:38)
[2019-12-16] VITALS (7 sets, daily range): BP systolic 105–144; BP diastolic 54–64
[2019-12-16] MEDS ORDERED: AMLO10TA8 PO (00:51)
[2019-12-16] MEDS: IV NORMAL SALINE 1000ML BAG 1,000 ML IV SCH (01:29)
[2019-12-16 03:04] LABS: BASO # 0.1 x10^3/uL (0.0-0.2); BASO % 1 % (0-3); EOS # 0.7 x10^3/uL (0.0-0.7); EOS % 5 % (0-3); HEMATOCRIT 26.8 % (39.0-53.0); HEMOGLOBIN 8.2 g/dL (13.0-17.5); LYMPH # 2.1 x10^3/uL (1.0-4.8); LYMPH % 16 % (24-48); MEAN CORPUSCULAR HEMOGLOBIN 21 pg (25-35); MEAN CORPUSCULAR HGB CONC 31 g/dL (31-37); MONO # 1.1 x10^3/uL (0.0-1.1); MONO % 8 % (0-9); NEUT # 9.6 x10^3/uL (1.8-7.7); NEUT % 71 % (31-73); PLATELET COUNT 421 x10^3/uL (140-400); RED BLOOD COUNT 3.96 x10^6/uL (4.30-5.70); RED CELL DISTRIBUTION WIDTH 25.7 % (11.5-14.5); WHITE BLOOD COUNT 13.6 x10^3/uL (4.0-11.0)
[2019-12-16 03:31] LABS: CALCIUM 8.4 mg/dL (8.5-10.1); GFR 75.7; POTASSIUM 4.5 mmol/L (3.5-5.1)
[2019-12-16 03:50] LABS: MEAN CORPUSCULAR VOLUME 68 fL (79-100)
[2019-12-16] MEDS ORDERED: PANTOPRAZOLE 40 MG TABLET.DR. PO SCH (07:30)
[2019-12-16] MEDS: ALBUTEROL SULFATE 2.5 MG/3 ML NEBU. NEB SCH ×4 (07:41→19:52)
[2019-12-16] MEDS: BUDESONIDE 0.5 MG/2 ML NEBU. NEB SCH ×2 (07:41→19:52)
[2019-12-16] MEDS ORDERED: CLOPIDOGREL BISULFATE 75 MG TABLET PO SCH (08:00)
[2019-12-16] MEDS: LOSARTAN POTASSIUM 50 MG TABLET. PO SCH (08:18)
[2019-12-16] MEDS: METOPROLOL SUCC 24HR ER 25 MG TAB.ER.24H. PO SCH (08:18)
[2019-12-16] MEDS: MULTIVITAMIN with MINERAL TABLET. PO SCH (08:18)
--- NOTE | 2019-12-16 14:10 | PDOC ---
G I PROGRESS NOTE Subjective Frustrated. Doesn't know plan re: leg, etc. No complaints though. Physical Exam Lungs clear. RRR Abdomen soft, not tender nor distended. Review of Relevant I have reviewed the following items christi (where applicable) has been applied. Labs Laboratory Tests Test 12/15/19 09:00 12/16/19 02:00 White Blood Count 10.0 x10^3/uL (4.0-11.0) 13.6 x10^3/uL (4.0-11.0) Red Blood Count 3.31 x10^6/uL (4.30-5.70) 3.96 x10^6/uL (4.30-5.70) Hemoglobin 6.2 g/dL (13.0-17.5) 8.2 g/dL (13.0-17.5) Hematocrit 20.9 % (39.0-53.0) 26.8 % (39.0-53.0) Mean Corpuscular Volume 63 fL (79-100) 68 fL (79-100) Mean Corpuscular Hemoglobin 19 pg (25-35) 21 pg (25-35) Mean Corpuscular Hemoglobin Concent 30 g/dL (31-37) 31 g/dL (31-37) Red Cell Distribution Width 19.9 % (11.5-14.5) 25.7 % (11.5-14.5) Platelet Count 422 x10^3/uL (140-400) 421 x10^3/uL (140-400) Prothrombin Time 13.8 SEC (11.7-14.0) Prothromb Time International Ratio 1.1 (0.8-1.1) Sodium Level 131 mmol/L (136-145) 133 mmol/L (136-145) Potassium Level 4.3 mmol/L (3.5-5.1) 4.5 mmol/L (3.5-5.1) Chloride Level 98 mmol/L (98-107) 99 mmol/L (98-107) Carbon Dioxide Level 24 mmol/L (21-32) 23 mmol/L (21-32) Anion Gap 9 (6-14) 11 (6-14) Blood Urea Nitrogen 12 mg/dL (8-26) 14 mg/dL (8-26) Creatinine 1.1 mg/dL (0.7-1.3) 1.0 mg/dL (0.7-1.3) Estimated GFR (Cockcroft-Gault) 67.8 75.7 Glucose Level 99 mg/dL (70-99) 95 mg/dL (70-99) Calcium Level 8.6 mg/dL (8.5-10.1) 8.4 mg/dL (8.5-10.1) Iron Level 9 ug/dL (65-175) Total Iron Binding Capacity 486 ug/dL (250-450) Iron Saturation 2 % (15-34) Neutrophils (%) (Auto) 71 % (31-73) Lymphocytes (%) (Auto) 16 % (24-48) Monocytes (%) (Auto) 8 % (0-9) Eosinophils (%) (Auto) 5 % (0-3) Basophils (%) (Auto) 1 % (0-3) Neutrophils # (Auto) 9.6 x10^3/uL (1.8-7.7) Lymphocytes # (Auto) 2.1 x10^3/uL (1.0-4.8) Monocytes # (Auto) 1.1 x10^3/uL (0.0-1.1) Eosinophils # (Auto) 0.7 x10^3/uL (0.0-0.7) Basophils # (Auto) 0.1 x10^3/uL (0.0-0.2) Laboratory Tests Test 12/16/19 02:00 White Blood Count 13.6 x10^3/uL (4.0-11.0) Red Blood Count 3.96 x10^6/uL (4.30-5.70) Hemoglobin 8.2 g/dL (13.0-17.5) Hematocrit 26.8 % (39.0-53.0) Mean Corpuscular Volume 68 fL (79-100) Mean Corpuscular Hemoglobin 21 pg (25-35) Mean Corpuscular Hemoglobin Concent 31 g/dL (31-37) Red Cell Distribution Width 25.7 % (11.5-14.5) Platelet Count 421 x10^3/uL (140-400) Neutrophils (%) (Auto) 71 % (31-73) Lymphocytes (%) (Auto) 16 % (24-48) Monocytes (%) (Auto) 8 % (0-9) Eosinophils (%) (Auto) 5 % (0-3) Basophils (%) (Auto) 1 % (0-3) Neutrophils # (Auto) 9.6 x10^3/uL (1.8-7.7) Lymphocytes # (Auto) 2.1 x10^3/uL (1.0-4.8) Monocytes # (Auto) 1.1 x10^3/uL (0.0-1.1) Eosinophils # (Auto) 0.7 x10^3/uL (0.0-0.7) Basophils # (Auto) 0.1 x10^3/uL (0.0-0.2) Sodium Level 133 mmol/L (136-145) Potassium Level 4.5 mmol/L (3.5-5.1) Chloride Level 99 mmol/L (98-107) Carbon Dioxide Level 23 mmol/L (21-32) Anion Gap 11 (6-14) Blood Urea Nitrogen 14 mg/dL (8-26) Creatinine 1.0 mg/dL (0.7-1.3) Estimated GFR (Cockcroft-Gault) 75.7 Glucose Level 95 mg/dL (70-99) Calcium Level 8.4 mg/dL (8.5-10.1) Iron deficient. Vitals/I & O Vital Sign - Last 24 Hours 12/15/19 12/15/19 12/15/19 12/15/19 14:30 15:00 16:04 17:04 Temp 97.6 98.0 97.6 97.6 98.0 97.6 Pulse 84 92 88 90 Resp 16 18 16 17 B/P (MAP) 92/59 (70) 105/50 (68) 109/52 122/64 Pulse Ox 98 94 O2 Delivery Room Air Room Air 12/15/19 12/15/19 12/15/19 12/15/19 18:04 19:00 19:20 19:42 Temp 98.2 97.8 97.8 98.2 97.8 97.8 Pulse 91 88 85 Resp 17 18 16 B/P (MAP) 121/69 131/63 (85) 131/63 Pulse Ox 98 O2 Delivery Room Air Room Air 12/15/19 12/15/19 12/15/19 12/15/19 20:00 20:06 20:17 20:21 Temp 98.1 98.2 98.1 98.2 Pulse 94 89 Resp 20 20 B/P (MAP) 133/54 122/52 Pulse Ox 95 O2 Delivery Room Air Room Air 12/15/19 12/15/19 12/15/19 12/16/19 21:20 22:20 23:00 00:10 Temp 97.9 98.1 98.0 98.6 97.9 98.1 98.0 98.6 Pulse 91 93 90 94 Resp 20 18 20 B/P (MAP) 131/65 124/57 124/57 (79) 144/63 Pulse Ox 93 O2 Delivery Room Air 12/16/19 12/16/19 12/16/19 12/16/19 03:00 07:00 07:45 07:47 Temp 98.9 98.0 98.9 98.0 Pulse 89 83 Resp 18 18 B/P (MAP) 113/59 (77) 117/62 (80) Pulse Ox 93 96 100 O2 Delivery Room Air Room Air Room Air 12/16/19 12/16/19 12/16/19 12/16/19 08:18 08:18 11:00 11:37 Temp 98.8 98.8 Pulse 83 83 83 Resp 18 B/P (MAP) 117/62 117/62 113/64 (80) Pulse Ox 96 O2 Delivery Room Air Intake and Output 12/15/19 12/15/19 12/16/19 15:00 23:00 07:00 Intake Total 285 ml 370 ml Output Total 375 ml 700 ml Balance -90 ml -330 ml Assessment PAULINA, source unclear. General impression from notes is to do GI w/u, then address leg. Plan of Care Note Will schedule for melissa-endoscopy Wednesday. Can take off the books if other plans; let me know. Hold further Plavix, ASA. Justicifation of Admission Dx: Justifications for Admission: Justification of Admission Dx: Yes IL: Acute STEMI ARDEN BOCANEGRA MD Dec 16, 2019 14:10
--- NOTE | 2019-12-16 14:11 | PDOC ---
PROGRESS NOTES Date of Service DATE: 12/16/19 TIME: 14:10 Subjective Subjective Patient seen and examined Objective Objective Vital Signs Date Time Temp Pulse Resp B/P (MAP) Pulse Ox O2 Delivery O2 Flow Rate FiO2 12/16/19 11:37 Room Air 12/16/19 11:00 98.8 83 18 113/64 (80) 96 98.8 Intake and Output 12/16/19 07:00 Intake Total 655 ml Output Total 1075 ml Balance -420 ml Intake Oral 50 ml Blood Product 320 ml Blood Product IV Normal Saline Flush 285 ml Output Urine Total 1075 ml # Voids 2 Physical Exam Abdomen: Normal bowel sounds Heart: Regular rate General: No acute distress Lungs: Clear to auscultation Assessment Assessment 1. Anemia probably from GIB secondary to DAPT. Stop ticagrelor, ASA and start ASA due to recent FALGUNI placement. GI team consulted for further workup possibly with EGD/colonoscopy. Transfused 2 units, morning hemoglobin 8.2 hematocrit of 26.8. Transfuse to keep Hgb >8.0. 2. CAD s/p recent PCI/FALGUNI to LAD and RCA, stable and chest pain free. Continue current secondary prevention measures. 3. Chr systolic heart failure, ischemic CMP. LVEF 35%. Clinically well compensated. Continue current medical regimen. Plan to repeat echo in 3 mos to evaluate need for AICD implantation.. 4. HTN: controlled 5. HLP: statins 6. PAD with Claudication, plan for aortogram once anemia/GIB workup is completed. Comment Review of Relevant I have reviewed the following items christi (where applicable) has been applied. Labs Laboratory Tests Test 12/15/19 09:00 12/16/19 02:00 White Blood Count 10.0 x10^3/uL (4.0-11.0) 13.6 x10^3/uL (4.0-11.0) Red Blood Count 3.31 x10^6/uL (4.30-5.70) 3.96 x10^6/uL (4.30-5.70) Hemoglobin 6.2 g/dL (13.0-17.5) 8.2 g/dL (13.0-17.5) Hematocrit 20.9 % (39.0-53.0) 26.8 % (39.0-53.0) Mean Corpuscular Volume 63 fL (79-100) 68 fL (79-100) Mean Corpuscular Hemoglobin 19 pg (25-35) 21 pg (25-35) Mean Corpuscular Hemoglobin Concent 30 g/dL (31-37) 31 g/dL (31-37) Red Cell Distribution Width 19.9 % (11.5-14.5) 25.7 % (11.5-14.5) Platelet Count 422 x10^3/uL (140-400) 421 x10^3/uL (140-400) Prothrombin Time 13.8 SEC (11.7-14.0) Prothromb Time International Ratio 1.1 (0.8-1.1) Sodium Level 131 mmol/L (136-145) 133 mmol/L (136-145) Potassium Level 4.3 mmol/L (3.5-5.1) 4.5 mmol/L (3.5-5.1) Chloride Level 98 mmol/L (98-107) 99 mmol/L (98-107) Carbon Dioxide Level 24 mmol/L (21-32) 23 mmol/L (21-32) Anion Gap 9 (6-14) 11 (6-14) Blood Urea Nitrogen 12 mg/dL (8-26) 14 mg/dL (8-26) Creatinine 1.1 mg/dL (0.7-1.3) 1.0 mg/dL (0.7-1.3) Estimated GFR (Cockcroft-Gault) 67.8 75.7 Glucose Level 99 mg/dL (70-99) 95 mg/dL (70-99) Calcium Level 8.6 mg/dL (8.5-10.1) 8.4 mg/dL (8.5-10.1) Iron Level 9 ug/dL (65-175) Total Iron Binding Capacity 486 ug/dL (250-450) Iron Saturation 2 % (15-34) Neutrophils (%) (Auto) 71 % (31-73) Lymphocytes (%) (Auto) 16 % (24-48) Monocytes (%) (Auto) 8 % (0-9) Eosinophils (%) (Auto) 5 % (0-3) Basophils (%) (Auto) 1 % (0-3) Neutrophils # (Auto) 9.6 x10^3/uL (1.8-7.7) Lymphocytes # (Auto) 2.1 x10^3/uL (1.0-4.8) Monocytes # (Auto) 1.1 x10^3/uL (0.0-1.1) Eosinophils # (Auto) 0.7 x10^3/uL (0.0-0.7) Basophils # (Auto) 0.1 x10^3/uL (0.0-0.2) Laboratory Tests Test 12/16/19 02:00 White Blood Count 13.6 x10^3/uL (4.0-11.0) Red Blood Count 3.96 x10^6/uL (4.30-5.70) Hemoglobin 8.2 g/dL (13.0-17.5) Hematocrit 26.8 % (39.0-53.0) Mean Corpuscular Volume 68 fL (79-100) Mean Corpuscular Hemoglobin 21 pg (25-35) Mean Corpuscular Hemoglobin Concent 31 g/dL (31-37) Red Cell Distribution Width 25.7 % (11.5-14.5) Platelet Count 421 x10^3/uL (140-400) Neutrophils (%) (Auto) 71 % (31-73) Lymphocytes (%) (Auto) 16 % (24-48) Monocytes (%) (Auto) 8 % (0-9) Eosinophils (%) (Auto) 5 % (0-3) Basophils (%) (Auto) 1 % (0-3) Neutrophils # (Auto) 9.6 x10^3/uL (1.8-7.7) Lymphocytes # (Auto) 2.1 x10^3/uL (1.0-4.8) Monocytes # (Auto) 1.1 x10^3/uL (0.0-1.1) Eosinophils # (Auto) 0.7 x10^3/uL (0.0-0.7) Basophils # (Auto) 0.1 x10^3/uL (0.0-0.2) Sodium Level 133 mmol/L (136-145) Potassium Level 4.5 mmol/L (3.5-5.1) Chloride Level 99 mmol/L (98-107) Carbon Dioxide Level 23 mmol/L (21-32) Anion Gap 11 (6-14) Blood Urea Nitrogen 14 mg/dL (8-26) Creatinine 1.0 mg/dL (0.7-1.3) Estimated GFR (Cockcroft-Gault) 75.7 Glucose Level 95 mg/dL (70-99) Calcium Level 8.4 mg/dL (8.5-10.1) Medications Current Medications Iodixanol (Visipaque 320) 100 ml STK-MED ONCE .ROUTE ; Start 12/15/19 at 07:47; Stop 12/15/19 at 07:47; Status DC Lidocaine HCl (Lidocaine 1% 20ml Vial) 20 ml STK-MED ONCE .ROUTE ; Start 12/15/19 at 07:47; Stop 12/15/19 at 07:47; Status DC Heparin Sodium/ Sodium Chloride 0 ml @ As Directed STK-MED ONCE .ROUTE ; Start 12/15/19 at 07:47; Stop 12/15/19 at 07:48; Status DC Sodium Chloride 1,000 ml @ 60 mls/hr [id number] IV Last administered on 12/15/19at 16:04; Start 12/15/19 at 08:49; Stop 12/16/19 at 08:48; Status DC Clopidogrel Bisulfate (Plavix) 75 mg DAILYWBKFT PO Last administered on 12/16/19at 08:17; Start 12/16/19 at 08:00; Stop 12/17/19 at 07:59 Pantoprazole Sodium (Protonix) 40 mg DAILYAC PO Last administered on 12/16/19at 08:19; Start 12/16/19 at 07:30; Stop 12/17/19 at 07:29 Atorvastatin Calcium (Lipitor) 40 mg QHS PO Last administered on 12/15/19at 22:38; Start 12/15/19 at 21:00 Losartan Potassium (Cozaar) 50 mg DAILY PO Last administered on 12/16/19at 08:18; Start 12/16/19 at 09:00 Metoprolol Succinate (Toprol Xl) 50 mg DAILY PO Last administered on 12/16/19at 08:18; Start 12/16/19 at 09:00 Nitroglycerin (Nitrostat) 0.4 mg PRN Q5MIN PRN SL CHEST PAIN; Start 12/15/19 at 16:15 Non-Formulary Medication (Fluticasone/ Salmeterol (Advair 100-50 Diskus)) 1 puff BID IH ; Start 12/15/19 at 21:00; Status UNV Multivitamins (Thera M Plus) 1 tab DAILY PO Last administered on 12/16/19at 08:18; Start 12/16/19 at 09:00 Albuterol Sulfate (Ventolin Neb Soln) 2.5 mg RTQID NEB Last administered on 12/16/19at 11:36; Start 12/15/19 at 20:00 Budesonide (Pulmicort) 0.5 mg RTBID NEB Last administered on 12/16/19at 07:41; Start 12/15/19 at 20:00 Cyclobenzaprine HCl (Flexeril) 5 mg PRN QHS PRN PO MUSCLE SPASMS; Start 12/15/19 at 16:30 Furosemide (Lasix) 20 mg 1X ONCE IVP Last administered on 12/15/19at 18:38; Start 12/15/19 at 17:30; Stop 12/15/19 at 17:31; Status DC Active Scripts Active Metoprolol Succinate ( Xl ) (Metoprolol Succinate) 25 Mg Tab.er.24h 50 Mg PO DAILY 30 Days Nitrostat (Nitroglycerin) 0.4 Mg Tab.subl 0.4 Mg SL PRN Q5MIN PRN 30 Days Atorvastatin Calcium 20 Mg Tablet 40 Mg PO QHS 30 Days Reported Amlodipine Besylate 10 Mg Tablet 1 Tab PO DAILY Daily Vitamin (Multivitamin) 1 Each Tablet 1 Each PO Advair 100-50 Diskus (Fluticasone/Salmeterol) 1 Each Disk.w.dev 1 Puff IH BID Aspirin 81 Mg Tab.chew 1 Tab PO DAILY Losartan Potassium 50 Mg Tablet 1 Tab PO DAILY Vitals/I & O Vital Sign - Last 24 Hours 12/15/19 12/15/19 12/15/19 12/15/19 14:30 15:00 16:04 17:04 Temp 97.6 98.0 97.6 97.6 98.0 97.6 Pulse 84 92 88 90 Resp 16 18 16 17 B/P (MAP) 92/59 (70) 105/50 (68) 109/52 122/64 Pulse Ox 98 94 O2 Delivery Room Air Room Air 12/15/19 12/15/19 12/15/19 12/15/19 18:04 19:00 19:20 19:42 Temp 98.2 97.8 97.8 98.2 97.8 97.8 Pulse 91 88 85 Resp 17 18 16 B/P (MAP) 121/69 131/63 (85) 131/63 Pulse Ox 98 O2 Delivery Room Air Room Air 12/15/19 12/15/19 12/15/19 12/15/19 20:00 20:06 20:17 20:21 Temp 98.1 98.2 98.1 98.2 Pulse 94 89 Resp 20 B/P (MAP) 133/54 122/52 Pulse Ox 95 O2 Delivery Room Air Room Air 12/15/19 12/15/19 12/15/19 12/16/19 21:20 22:20 23:00 00:10 Temp 97.9 98.1 98.0 98.6 97.9 98.1 98.0 98.6 Pulse 91 93 90 94 Resp 20 B/P (MAP) 131/65 124/57 124/57 (79) 144/63 Pulse Ox 93 O2 Delivery Room Air 12/16/19 12/16/19 12/16/19 12/16/19 03:00 07:00 07:45 07:47 Temp 98.9 98.0 98.9 98.0 Pulse 89 83 Resp 18 18 B/P (MAP) 113/59 (77) 117/62 (80) Pulse Ox 93 96 100 O2 Delivery Room Air Room Air Room Air 12/16/19 12/16/19 12/16/19 12/16/19 08:18 08:18 11:00 11:37 Temp 98.8 98.8 Pulse 83 83 83 Resp 18 B/P (MAP) 117/62 117/62 113/64 (80) Pulse Ox 96 O2 Delivery Room Air Intake and Output 12/15/19 12/15/19 12/16/19 15:00 23:00 07:00 Intake Total 285 ml 370 ml Output Total 375 ml 700 ml Balance -90 ml -330 ml Justifications for Admission Other Justification JAUN SEGUNDO MD Dec 16, 2019 14:11
--- NOTE | 2019-12-16 15:46 | PDOC ---
[facility] PROGRESS NOTE Date of Service DOS: DATE: 12/16/19 TIME: 15:43 Chief Complaint Chief Complaint MARKED ANEMIA, POSSIBLE GI BLEED, MICROCYTIC CAD Ischemic cardiomyopathy HX Successful PCI/drug-eluting stents placement to the right coronary artery. 11/01/19 Severe hypokinesis of mid to distal anteroseptal wall and apical wall. Ejection fraction estimated at 35%.11/05 ECHO HTN HLP Tobacco and alcohol abuse PLAN ADMIT Status post [address] MACDONALD Appreciate GI recommendations Upper and lower endoscopy on Wednesday Hold aspirin and Plavix at least 2 days prior to endoscopy if plan for biopsy PROTONIX stopping alcohol use needed History of Present Illness History of Present Illness 64 y/o male w/ h/o CAD s/p stent(s) placement in 10/2019 on Brilinta and ASA and h/o PVD w/ RLE pain here for femoral runoff which was cancelled due to anemia. Denies hematemesis, hematochezia, and melena. Rare heartburn after eating Portuguese food, maybe takes Rolaids sometimes. No dysphagia, n/v, abd pain, diarrhea, or constipation. Has lost some weight after he quit drinking soda. No previous EGD or colonoscopy, maybe had an UGI once. No GB, liver, pancreas, or PUD history. Rare NSAIDs. 12/16/2019 No acute events overnight. Patient's hemoglobin remained stable at 8.2. No further bleeding anywhere. Patient's chart, labs, images were reviewed and discussed with RN Vitals/I&O Vitals/I&O: Vital Signs Date Time Temp Pulse Resp B/P (MAP) Pulse Ox O2 Delivery O2 Flow Rate FiO2 12/16/19 15:00 98.6 84 18 113/61 (78) 96 98.6 12/16/19 11:37 Room Air I & O 12/15/19 12/15/19 12/16/19 15:00 23:00 07:00 Intake Total 285 ml 370 ml Output Total 375 ml 700 ml Balance -90 ml -330 ml Physical Exam General: No acute distress Heart: Regular rate Abdomen: Normal bowel sounds Extremities: No cyanosis Labs Labs: Laboratory Tests Test 12/16/19 02:00 White Blood Count 13.6 x10^3/uL (4.0-11.0) Red Blood Count 3.96 x10^6/uL (4.30-5.70) Hemoglobin 8.2 g/dL (13.0-17.5) Hematocrit 26.8 % (39.0-53.0) Mean Corpuscular Volume 68 fL (79-100) Mean Corpuscular Hemoglobin 21 pg (25-35) Mean Corpuscular Hemoglobin Concent 31 g/dL (31-37) Red Cell Distribution Width 25.7 % (11.5-14.5) Platelet Count 421 x10^3/uL (140-400) Neutrophils (%) (Auto) 71 % (31-73) Lymphocytes (%) (Auto) 16 % (24-48) Monocytes (%) (Auto) 8 % (0-9) Eosinophils (%) (Auto) 5 % (0-3) Basophils (%) (Auto) 1 % (0-3) Neutrophils # (Auto) 9.6 x10^3/uL (1.8-7.7) Lymphocytes # (Auto) 2.1 x10^3/uL (1.0-4.8) Monocytes # (Auto) 1.1 x10^3/uL (0.0-1.1) Eosinophils # (Auto) 0.7 x10^3/uL (0.0-0.7) Basophils # (Auto) 0.1 x10^3/uL (0.0-0.2) Sodium Level 133 mmol/L (136-145) Potassium Level 4.5 mmol/L (3.5-5.1) Chloride Level 99 mmol/L (98-107) Carbon Dioxide Level 23 mmol/L (21-32) Anion Gap 11 (6-14) Blood Urea Nitrogen 14 mg/dL (8-26) Creatinine 1.0 mg/dL (0.7-1.3) Estimated GFR (Cockcroft-Gault) 75.7 Glucose Level 95 mg/dL (70-99) Calcium Level 8.4 mg/dL (8.5-10.1) Comment Review of Relevant I have reviewed the following items christi (where applicable) has been applied. Medications: Current Medications Medications (Trade) Dose Ordered Sig/Sheila Route PRN Reason Start Time Stop Time Status Last Admin Dose Admin Clopidogrel Bisulfate (Plavix) 75 mg DAILYWBKFT PO 12/16/19 08:00 12/17/19 07:59 8/29/20 08:17 Pantoprazole Sodium (Protonix) 40 mg DAILYAC PO 12/16/19 07:30 12/17/19 07:29 12/16/19 08:19 Atorvastatin Calcium (Lipitor) 40 mg QHS PO 12/15/19 21:00 12/15/19 22:38 Losartan Potassium (Cozaar) 50 mg DAILY PO 12/16/19 09:00 12/16/19 08:18 Metoprolol Succinate (Toprol Xl) 50 mg DAILY PO 12/16/19 09:00 12/16/19 08:18 Multivitamins (Thera M Plus) 1 tab DAILY PO 12/16/19 09:00 12/16/19 08:18 Albuterol Sulfate (Ventolin Neb Soln) 2.5 mg RTQID NEB 12/15/19 20:00 12/16/19 11:36 Budesonide (Pulmicort) 0.5 mg RTBID NEB 12/15/19 20:00 12/16/19 07:41 Furosemide (Lasix) 20 mg 1X ONCE IVP 12/15/19 17:30 12/15/19 17:31 DC 12/15/19 18:38 Justifications for Admission Other Justification OWEN GUTIERREZ MD Dec 16, 2019 15:46
[2019-12-16] MEDS: ATORVASTATIN CALCIUM 20 MG TABLET PO SCH (20:30)
[2019-12-17 04:48] VITALS: BP 117/66
[2019-12-17 07:00] VITALS: BP 117/60
[2019-12-17] MEDS: ALBUTEROL SULFATE 2.5 MG/3 ML NEBU. NEB SCH ×4 (08:05→20:00)
[2019-12-17] MEDS: BUDESONIDE 0.5 MG/2 ML NEBU. NEB SCH ×2 (08:05→20:00)
[2019-12-17 08:52] LABS: BASO # 0.1 x10^3/uL (0.0-0.2); BASO % 1 % (0-3); EOS # 0.6 x10^3/uL (0.0-0.7); EOS % 5 % (0-3); HEMATOCRIT 26.3 % (39.0-53.0); HEMOGLOBIN 8.2 g/dL (13.0-17.5); LYMPH # 1.8 x10^3/uL (1.0-4.8); LYMPH % 16 % (24-48); MEAN CORPUSCULAR HEMOGLOBIN 21 pg (25-35); MEAN CORPUSCULAR HGB CONC 31 g/dL (31-37); MEAN CORPUSCULAR VOLUME 68 fL (79-100); MONO % 9 % (0-9); NEUT # 7.6 x10^3/uL (1.8-7.7); NEUT % 69 % (31-73); PLATELET COUNT 433 x10^3/uL (140-400); RED BLOOD COUNT 3.88 x10^6/uL (4.30-5.70); RED CELL DISTRIBUTION WIDTH 26.1 % (11.5-14.5)
[2019-12-17] MEDS ORDERED: MAGNESIUM CITRATE 296 ML SOLUTION. PO ONE (09:00)
[2019-12-17] MEDS: MULTIVITAMIN with MINERAL TABLET. PO SCH (09:45)
[2019-12-17] MEDS: LOSARTAN POTASSIUM 50 MG TABLET. PO SCH (09:45)
[2019-12-17] MEDS: METOPROLOL SUCC 24HR ER 25 MG TAB.ER.24H. PO SCH (09:45)
[2019-12-17 10:51] LABS: PLT ESTIMATE ADEQUATE (ADEQUATE)
[2019-12-17 10:52] LABS: ANISOCYTOSIS PRESENT; HYPOCHROMIA PRESENT; MICROCYTOSIS PRESENT; POIKILOCYTOSIS PRESENT; POLYCHROMASIA PRESENT
[2019-12-17 10:53] LABS: BIZZARE CELLS PRESENT
[2019-12-17 11:00] VITALS: BP 116/61
--- NOTE | 2019-12-17 12:42 | PDOC ---
G I PROGRESS NOTE Subjective Prep working. No other complaints. Physical Exam Lungs clear. RRR Abdomen soft, not tender nor distended. Review of Relevant I have reviewed the following items christi (where applicable) has been applied. Labs Laboratory Tests Test 12/16/19 02:00 12/17/19 07:35 White Blood Count 13.6 x10^3/uL (4.0-11.0) 11.0 x10^3/uL (4.0-11.0) Red Blood Count 3.96 x10^6/uL (4.30-5.70) 3.88 x10^6/uL (4.30-5.70) Hemoglobin 8.2 g/dL (13.0-17.5) 8.2 g/dL (13.0-17.5) Hematocrit 26.8 % (39.0-53.0) 26.3 % (39.0-53.0) Mean Corpuscular Volume 68 fL (79-100) 68 fL (79-100) Mean Corpuscular Hemoglobin 21 pg (25-35) 21 pg (25-35) Mean Corpuscular Hemoglobin Concent 31 g/dL (31-37) 31 g/dL (31-37) Red Cell Distribution Width 25.7 % (11.5-14.5) 26.1 % (11.5-14.5) Platelet Count 421 x10^3/uL (140-400) 433 x10^3/uL (140-400) Neutrophils (%) (Auto) 71 % (31-73) 69 % (31-73) Lymphocytes (%) (Auto) 16 % (24-48) 16 % (24-48) Monocytes (%) (Auto) 8 % (0-9) 9 % (0-9) Eosinophils (%) (Auto) 5 % (0-3) 5 % (0-3) Basophils (%) (Auto) 1 % (0-3) 1 % (0-3) Neutrophils # (Auto) 9.6 x10^3/uL (1.8-7.7) 7.6 x10^3/uL (1.8-7.7) Lymphocytes # (Auto) 2.1 x10^3/uL (1.0-4.8) 1.8 x10^3/uL (1.0-4.8) Monocytes # (Auto) 1.1 x10^3/uL (0.0-1.1) 1.0 x10^3/uL (0.0-1.1) Eosinophils # (Auto) 0.7 x10^3/uL (0.0-0.7) 0.6 x10^3/uL (0.0-0.7) Basophils # (Auto) 0.1 x10^3/uL (0.0-0.2) 0.1 x10^3/uL (0.0-0.2) Sodium Level 133 mmol/L (136-145) Potassium Level 4.5 mmol/L (3.5-5.1) Chloride Level 99 mmol/L (98-107) Carbon Dioxide Level 23 mmol/L (21-32) Anion Gap 11 (6-14) Blood Urea Nitrogen 14 mg/dL (8-26) Creatinine 1.0 mg/dL (0.7-1.3) Estimated GFR (Cockcroft-Gault) 75.7 Glucose Level 95 mg/dL (70-99) Calcium Level 8.4 mg/dL (8.5-10.1) Platelet Estimate Adequate (ADEQUATE) Polychromasia Present Hypochromasia Present Poikilocytosis Present Anisocytosis Present Microcytosis Present Macrocytosis Present RBC Morphology Bizarre Forms Present Laboratory Tests Test 12/17/19 07:35 White Blood Count 11.0 x10^3/uL (4.0-11.0) Red Blood Count 3.88 x10^6/uL (4.30-5.70) Hemoglobin 8.2 g/dL (13.0-17.5) Hematocrit 26.3 % (39.0-53.0) Mean Corpuscular Volume 68 fL (79-100) Mean Corpuscular Hemoglobin 21 pg (25-35) Mean Corpuscular Hemoglobin Concent 31 g/dL (31-37) Red Cell Distribution Width 26.1 % (11.5-14.5) Platelet Count 433 x10^3/uL (140-400) Neutrophils (%) (Auto) 69 % (31-73) Lymphocytes (%) (Auto) 16 % (24-48) Monocytes (%) (Auto) 9 % (0-9) Eosinophils (%) (Auto) 5 % (0-3) Basophils (%) (Auto) 1 % (0-3) Neutrophils # (Auto) 7.6 x10^3/uL (1.8-7.7) Lymphocytes # (Auto) 1.8 x10^3/uL (1.0-4.8) Monocytes # (Auto) 1.0 x10^3/uL (0.0-1.1) Eosinophils # (Auto) 0.6 x10^3/uL (0.0-0.7) Basophils # (Auto) 0.1 x10^3/uL (0.0-0.2) Platelet Estimate Adequate (ADEQUATE) Polychromasia Present Hypochromasia Present Poikilocytosis Present Anisocytosis Present Microcytosis Present Macrocytosis Present RBC Morphology Bizarre Forms Present Vitals/I & O Vital Sign - Last 24 Hours 12/16/19 12/16/19 12/16/19 12/16/19 15:00 19:00 19:52 19:54 Temp 98.6 98.6 98.6 98.6 Pulse 84 80 Resp 18 18 B/P (MAP) 113/61 (78) 108/58 (75) Pulse Ox 96 98 97 97 O2 Delivery Room Air Room Air Room Air 12/16/19 12/16/19 12/17/19 12/17/19 20:00 23:01 04:48 07:00 Temp 98.9 98.1 98.2 98.9 98.1 98.2 Pulse 90 82 80 Resp 18 20 16 B/P (MAP) 105/54 (71) 117/66 (83) 117/60 (79) Pulse Ox 100 94 96 O2 Delivery Room Air Room Air Room Air Room Air 12/17/19 12/17/19 12/17/19 12/17/19 08:05 08:10 09:45 09:45 Pulse 82 82 B/P (MAP) 117/66 117/66 Pulse Ox 96 O2 Delivery Room Air Room Air 12/17/19 12/17/19 11:00 12:04 Temp 98.0 98.0 Pulse 88 Resp 16 B/P (MAP) 116/61 (79) Pulse Ox 97 97 O2 Delivery Room Air Room Air Intake and Output 12/16/19 12/16/19 12/17/19 15:00 23:00 07:00 Intake Total 600 ml 440 ml Output Total 0 ml Balance 600 ml 440 ml 0 ml Assessment PAULINA, cause unclear. Plan of Care Note Continue prep. 'Scopes tomorrow. Justicifation of Admission Dx: Justifications for Admission: Justification of Admission Dx: Yes NH: Acute STEMI ARDEN BOCANEGRA MD Dec 17, 2019 12:42
[2019-12-17] MEDS ORDERED: BISACODYL 5 MG TABLET.DR. PO ONE (14:00)
--- NOTE | 2019-12-17 14:09 | PDOC ---
PROGRESS NOTES Date of Service DATE: 12/17/19 TIME: 14:07 Subjective Subjective Patient seen and examined Objective Objective Vital Signs Date Time Temp Pulse Resp B/P (MAP) Pulse Ox O2 Delivery O2 Flow Rate FiO2 12/17/19 12:04 97 Room Air 12/17/19 11:00 98.0 88 16 116/61 (79) 98.0 Intake and Output 12/17/19 07:00 Intake Total 1040 ml Output Total 0 ml Balance 1040 ml Intake Oral 1040 ml Output Urine Total 0 ml # Voids 4 # Bowel Movements 1 Physical Exam Abdomen: Normal bowel sounds Heart: Regular rate General: No acute distress Lungs: Clear to auscultation Assessment Assessment 1. Anemia probably from GIB secondary to DAPT. Stop ticagrelor, ASA and start ASA due to recent FALGUNI placement. GI following with plans for probable EGD/colonoscopy tomorrow. 2. CAD s/p recent PCI/FALGUNI to LAD and RCA, stable and chest pain free. Continue current secondary prevention measures. 3. Chr systolic heart failure, ischemic CMP. LVEF 35%. Clinically well compensated. Continue current medical regimen. Plan to repeat echo in 3 mos to evaluate need for AICD implantation.. 4. HTN: controlled 5. HLP: statins 6. PAD with Claudication, plan for aortogram once anemia/GIB workup is completed. Comment Review of Relevant I have reviewed the following items christi (where applicable) has been applied. Labs Laboratory Tests Test 12/16/19 02:00 12/17/19 07:35 White Blood Count 13.6 x10^3/uL (4.0-11.0) 11.0 x10^3/uL (4.0-11.0) Red Blood Count 3.96 x10^6/uL (4.30-5.70) 3.88 x10^6/uL (4.30-5.70) Hemoglobin 8.2 g/dL (13.0-17.5) 8.2 g/dL (13.0-17.5) Hematocrit 26.8 % (39.0-53.0) 26.3 % (39.0-53.0) Mean Corpuscular Volume 68 fL (79-100) 68 fL (79-100) Mean Corpuscular Hemoglobin 21 pg (25-35) 21 pg (25-35) Mean Corpuscular Hemoglobin Concent 31 g/dL (31-37) 31 g/dL (31-37) Red Cell Distribution Width 25.7 % (11.5-14.5) 26.1 % (11.5-14.5) Platelet Count 421 x10^3/uL (140-400) 433 x10^3/uL (140-400) Neutrophils (%) (Auto) 71 % (31-73) 69 % (31-73) Lymphocytes (%) (Auto) 16 % (24-48) 16 % (24-48) Monocytes (%) (Auto) 8 % (0-9) 9 % (0-9) Eosinophils (%) (Auto) 5 % (0-3) 5 % (0-3) Basophils (%) (Auto) 1 % (0-3) 1 % (0-3) Neutrophils # (Auto) 9.6 x10^3/uL (1.8-7.7) 7.6 x10^3/uL (1.8-7.7) Lymphocytes # (Auto) 2.1 x10^3/uL (1.0-4.8) 1.8 x10^3/uL (1.0-4.8) Monocytes # (Auto) 1.1 x10^3/uL (0.0-1.1) 1.0 x10^3/uL (0.0-1.1) Eosinophils # (Auto) 0.7 x10^3/uL (0.0-0.7) 0.6 x10^3/uL (0.0-0.7) Basophils # (Auto) 0.1 x10^3/uL (0.0-0.2) 0.1 x10^3/uL (0.0-0.2) Sodium Level 133 mmol/L (136-145) Potassium Level 4.5 mmol/L (3.5-5.1) Chloride Level 99 mmol/L (98-107) Carbon Dioxide Level 23 mmol/L (21-32) Anion Gap 11 (6-14) Blood Urea Nitrogen 14 mg/dL (8-26) Creatinine 1.0 mg/dL (0.7-1.3) Estimated GFR (Cockcroft-Gault) 75.7 Glucose Level 95 mg/dL (70-99) Calcium Level 8.4 mg/dL (8.5-10.1) Platelet Estimate Adequate (ADEQUATE) Polychromasia Present Hypochromasia Present Poikilocytosis Present Anisocytosis Present Microcytosis Present Macrocytosis Present RBC Morphology Bizarre Forms Present Laboratory Tests Test 12/17/19 07:35 White Blood Count 11.0 x10^3/uL (4.0-11.0) Red Blood Count 3.88 x10^6/uL (4.30-5.70) Hemoglobin 8.2 g/dL (13.0-17.5) Hematocrit 26.3 % (39.0-53.0) Mean Corpuscular Volume 68 fL (79-100) Mean Corpuscular Hemoglobin 21 pg (25-35) Mean Corpuscular Hemoglobin Concent 31 g/dL (31-37) Red Cell Distribution Width 26.1 % (11.5-14.5) Platelet Count 433 x10^3/uL (140-400) Neutrophils (%) (Auto) 69 % (31-73) Lymphocytes (%) (Auto) 16 % (24-48) Monocytes (%) (Auto) 9 % (0-9) Eosinophils (%) (Auto) 5 % (0-3) Basophils (%) (Auto) 1 % (0-3) Neutrophils # (Auto) 7.6 x10^3/uL (1.8-7.7) Lymphocytes # (Auto) 1.8 x10^3/uL (1.0-4.8) Monocytes # (Auto) 1.0 x10^3/uL (0.0-1.1) Eosinophils # (Auto) 0.6 x10^3/uL (0.0-0.7) Basophils # (Auto) 0.1 x10^3/uL (0.0-0.2) Platelet Estimate Adequate (ADEQUATE) Polychromasia Present Hypochromasia Present Poikilocytosis Present Anisocytosis Present Microcytosis Present Macrocytosis Present RBC Morphology Bizarre Forms Present Medications Current Medications Iodixanol (Visipaque 320) 100 ml STK-MED ONCE .ROUTE ; Start 12/15/19 at 07:47; Stop 12/15/19 at 07:47; Status DC Lidocaine HCl (Lidocaine 1% 20ml Vial) 20 ml STK-MED ONCE .ROUTE ; Start 12/15/19 at 07:47; Stop 12/15/19 at 07:47; Status DC Heparin Sodium/ Sodium Chloride 0 ml @ As Directed STK-MED ONCE .ROUTE ; Start 12/15/19 at 07:47; Stop 12/15/19 at 07:48; Status DC Sodium Chloride 1,000 ml @ 60 mls/hr [id number] IV Last administered on 12/15/19at 16:04; Start 12/15/19 at 08:49; Stop 12/16/19 at 08:48; Status DC Clopidogrel Bisulfate (Plavix) 75 mg [id number] PO Last administered on 12/16/19at 08:17; Start 12/16/19 at 08:00; Stop 12/17/19 at 07:59; Status DC Pantoprazole Sodium (Protonix) 40 mg DAILYAC PO Last administered on 12/16/19at 08:19; Start 12/16/19 at 07:30; Stop 12/17/19 at 07:29; Status DC Atorvastatin Calcium (Lipitor) 40 mg QHS PO Last administered on 12/16/19at 20:30; Start 12/15/19 at 21:00 Losartan Potassium (Cozaar) 50 mg DAILY PO Last administered on 12/17/19at 09:45; Start 12/16/19 at 09:00 Metoprolol Succinate (Toprol Xl) 50 mg DAILY PO Last administered on 12/17/19at 09:45; Start 12/16/19 at 09:00 Nitroglycerin (Nitrostat) 0.4 mg PRN Q5MIN PRN SL CHEST PAIN; Start 12/15/19 at 16:15 Non-Formulary Medication (Fluticasone/ Salmeterol (Advair 100-50 Diskus)) 1 puff BID IH ; Start 12/15/19 at 21:00; Status UNV Multivitamins (Thera M Plus) 1 tab DAILY PO Last administered on 12/17/19at 09:45; Start 12/16/19 at 09:00 Albuterol Sulfate (Ventolin Neb Soln) 2.5 mg RTQID NEB Last administered on 12/17/19at 12:03; Start 12/15/19 at 20:00 Budesonide (Pulmicort) 0.5 mg RTBID NEB Last administered on 12/17/19at 08:05; Start 12/15/19 at 20:00 Cyclobenzaprine HCl (Flexeril) 5 mg PRN QHS PRN PO MUSCLE SPASMS; Start 12/15/19 at 16:30 Furosemide (Lasix) 20 mg 1X ONCE IVP Last administered on 12/15/19at 18:38; Start 12/15/19 at 17:30; Stop 12/15/19 at 17:31; Status DC Magnesium Citrate (Citroma) 296 ml 1X ONCE PO Last administered on 12/17/19at 09:45; Start 12/17/19 at 09:00; Stop 12/17/19 at 09:01; Status DC Polyethylene Glycol (miraLAX Powder BULK BOTTLE) 238 gm 1X ONCE PO ; Start 12/17/19 at 15:00; Stop 12/17/19 at 15:01 Bisacodyl (Dulcolax Tab) 20 mg 1X ONCE PO ; Start 12/17/19 at 14:00; Stop 12/17/19 at 14:01; Status DC Active Scripts Active Metoprolol Succinate ( Xl ) (Metoprolol Succinate) 25 Mg Tab.er.24h 50 Mg PO DAILY 30 Days Nitrostat (Nitroglycerin) 0.4 Mg Tab.subl 0.4 Mg SL PRN Q5MIN PRN 30 Days Atorvastatin Calcium 20 Mg Tablet 40 Mg PO QHS 30 Days Reported Amlodipine Besylate 10 Mg Tablet 1 Tab PO DAILY Daily Vitamin (Multivitamin) 1 Each Tablet 1 Each PO Advair 100-50 Diskus (Fluticasone/Salmeterol) 1 Each Disk.w.dev 1 Puff IH BID Aspirin 81 Mg Tab.chew 1 Tab PO DAILY Losartan Potassium 50 Mg Tablet 1 Tab PO DAILY Vitals/I & O Vital Sign - Last 24 Hours 12/16/19 12/16/19 12/16/19 12/16/19 15:00 19:00 19:52 19:54 Temp 98.6 98.6 98.6 98.6 Pulse 84 80 Resp 18 18 B/P (MAP) 113/61 (78) 108/58 (75) Pulse Ox 96 98 97 97 O2 Delivery Room Air Room Air Room Air 12/16/19 12/16/19 12/17/19 12/17/19 20:00 23:01 04:48 07:00 Temp 98.9 98.1 98.2 98.9 98.1 98.2 Pulse 90 82 80 Resp 18 20 16 B/P (MAP) 105/54 (71) 117/66 (83) 117/60 (79) Pulse Ox 100 94 96 O2 Delivery Room Air Room Air Room Air Room Air 12/17/19 12/17/19 12/17/19 12/17/19 08:05 08:10 09:45 09:45 Pulse 82 82 B/P (MAP) 117/66 117/66 Pulse Ox 96 O2 Delivery Room Air Room Air 12/17/19 12/17/19 11:00 12:04 Temp 98.0 98.0 Pulse 88 Resp 16 B/P (MAP) 116/61 (79) Pulse Ox 97 97 O2 Delivery Room Air Room Air Intake and Output 12/16/19 12/16/19 12/17/19 15:00 23:00 07:00 Intake Total 600 ml 440 ml Output Total 0 ml Balance 600 ml 440 ml 0 ml Justifications for Admission Other Justification JAUN SEGUNDO MD Dec 17, 2019 14:08
[2019-12-17] MEDS ORDERED: POLYETHYLENE GLYCOL 3350 BTL 238 GM POWDER PO ONE (15:00)
[2019-12-17 15:30] VITALS: BP 116/55
[2019-12-17 19:00] VITALS: BP 110/66
--- NOTE | 2019-12-17 19:14 | PDOC ---
[facility] PROGRESS NOTE Date of Service DOS: DATE: 12/17/19 TIME: 19:13 Chief Complaint Chief Complaint MARKED ANEMIA, POSSIBLE GI BLEED, MICROCYTIC CAD Ischemic cardiomyopathy HX Successful PCI/drug-eluting stents placement to the right coronary artery. 11/01/19 Severe hypokinesis of mid to distal anteroseptal wall and apical wall. Ejection fraction estimated at 35%.11/05 ECHO HTN HLP Tobacco and alcohol abuse PLAN Status post 2 units PRBC hemoglobin stable Consult DR MACDONALD Appreciate GI recommendations Upper and lower endoscopy on Wednesday Hold aspirin and Plavix at least 2 days prior to endoscopy if plan for biopsy Will need vascular surgery to be recontacted for originally scheduled angiogram PROTONIX stopping alcohol use needed History of Present Illness History of Present Illness 64 y/o male w/ h/o CAD s/p stent(s) placement in 10/2019 on Brilinta and ASA and h/o PVD w/ RLE pain here for femoral runoff which was cancelled due to anemia. Denies hematemesis, hematochezia, and melena. Rare heartburn after eating Setswana food, maybe takes Rolaids sometimes. No dysphagia, n/v, abd pain, diarrhea, or constipation. Has lost some weight after he quit drinking soda. No previous EGD or colonoscopy, maybe had an UGI once. No GB, liver, pancreas, or PUD history. Rare NSAIDs. 12/16/2019 No acute events overnight. Patient's hemoglobin remained stable at 8.2. No further bleeding anywhere. Patient's chart, labs, images were reviewed and discussed with RN 12/17/2019 Patient's hemoglobin remained stable. No bloody stools. Patient's chart, labs, images were reviewed and discussed with RN Vitals/I&O Vitals/I&O: Vital Signs Date Time Temp Pulse Resp B/P (MAP) Pulse Ox O2 Delivery O2 Flow Rate FiO2 12/17/19 15:30 98.0 75 16 116/55 (75) 97 Room Air 98.0 I & O 12/16/19 12/16/19 12/17/19 15:00 23:00 07:00 Intake Total 600 ml 440 ml Output Total 0 ml Balance 600 ml 440 ml 0 ml Physical Exam Physical Exam: General: No acute distress Heart: Regular rate Abdomen: Normal bowel sounds Extremities: No cyanosis General: No acute distress Heart: Regular rate Abdomen: Normal bowel sounds Extremities: No cyanosis Labs Labs: Laboratory Tests Test 12/17/19 07:35 White Blood Count 11.0 x10^3/uL (4.0-11.0) Red Blood Count 3.88 x10^6/uL (4.30-5.70) Hemoglobin 8.2 g/dL (13.0-17.5) Hematocrit 26.3 % (39.0-53.0) Mean Corpuscular Volume 68 fL (79-100) Mean Corpuscular Hemoglobin 21 pg (25-35) Mean Corpuscular Hemoglobin Concent 31 g/dL (31-37) Red Cell Distribution Width 26.1 % (11.5-14.5) Platelet Count 433 x10^3/uL (140-400) Neutrophils (%) (Auto) 69 % (31-73) Lymphocytes (%) (Auto) 16 % (24-48) Monocytes (%) (Auto) 9 % (0-9) Eosinophils (%) (Auto) 5 % (0-3) Basophils (%) (Auto) 1 % (0-3) Neutrophils # (Auto) 7.6 x10^3/uL (1.8-7.7) Lymphocytes # (Auto) 1.8 x10^3/uL (1.0-4.8) Monocytes # (Auto) 1.0 x10^3/uL (0.0-1.1) Eosinophils # (Auto) 0.6 x10^3/uL (0.0-0.7) Basophils # (Auto) 0.1 x10^3/uL (0.0-0.2) Platelet Estimate Adequate (ADEQUATE) Polychromasia Present Hypochromasia Present Poikilocytosis Present Anisocytosis Present Microcytosis Present Macrocytosis Present RBC Morphology Bizarre Forms Present Comment Review of Relevant I have reviewed the following items christi (where applicable) has been applied. Medications: Current Medications Medications (Trade) Dose Ordered Sig/Sheila Route PRN Reason Start Time Stop Time Status Last Admin Dose Admin Magnesium Citrate (Citroma) 296 ml 1X ONCE PO 12/17/19 09:00 12/17/19 09:01 DC 12/17/19 09:45 Polyethylene Glycol (miraLAX Powder BULK BOTTLE) 238 gm 1X ONCE PO 12/17/19 15:00 12/17/19 15:01 DC 12/17/19 15:13 Bisacodyl (Dulcolax Tab) 20 mg 1X ONCE PO 12/17/19 14:00 12/17/19 14:01 DC 12/17/19 14:14 Justifications for Admission Other Justification OWEN GUTIERREZ MD Dec 17, 2019 19:14
[2019-12-17] MEDS: ATORVASTATIN CALCIUM 20 MG TABLET PO SCH (21:28)
[2019-12-17 23:00] VITALS: BP 121/56
[2019-12-18 03:00] VITALS: BP 118/63
[2019-12-18 07:00] VITALS: BP 116/50
[2019-12-18] MEDS: BUDESONIDE 0.5 MG/2 ML NEBU. NEB SCH ×2 (07:37→20:00)
[2019-12-18] MEDS: ALBUTEROL SULFATE 2.5 MG/3 ML NEBU. NEB SCH ×4 (07:37→20:00)
[2019-12-18] MEDS: MULTIVITAMIN with MINERAL TABLET. PO SCH (09:07)
[2019-12-18] MEDS: LOSARTAN POTASSIUM 50 MG TABLET. PO SCH (09:07)
[2019-12-18] MEDS: METOPROLOL SUCC 24HR ER 25 MG TAB.ER.24H. PO SCH (09:08)
--- NOTE | 2019-12-18 10:28 | NUR ---
SW following. Discussed with RN, pt from home, independent, room air, NPO. Pt having an EGD and colonoscopy today, possibility of an aortogram as well. RN advised no SW needs, anticipates possible discharge home today if all tests are fine. SW will continue to follow.
[2019-12-18 11:00] VITALS: BP 112/68
[2019-12-18] MEDS ORDERED: IV RINGERS,LACTATED 1000ML 1,000 ML IV SCH (12:30)
[2019-12-18] MEDS ORDERED: LIDOCAINE 2% PF 5 ML VIAL. ONE (12:31)
[2019-12-18] MEDS ORDERED: PROPOFOL 10 MG/ML (20ML) VIAL. IV ONE (12:31)
[2019-12-18] MEDS ORDERED: ePHEDrine PF IN SALINE 50 MG/10 ML SYRINGE. IV ONE (12:33)
--- NOTE | 2019-12-18 13:34 | PDOC4 ---
PROCEDURE Procedure EGD/biopsies, colonoscopy/biopsies, tattooing Indication: PAULINA Meds: per anesthesia Findings: E--Mild, asymptomatic Shatzki's ring at 40cm. G--small HH D--normal to second portion. Biopsies of antrum and duodenum. MORIAH: normal --'Scope advanced to descending/sigmoid junction. At this point, near- obstructing tumor we could not pass. Biopsies taken and area tattooed; more distal tattoo includes a polyp in the area. Mucosa to this level otherwise no rmal. Diverticula in sigmoid. 4-5mm rectal polyp, biopsied off. Retroflex normal. Amalia. well. IMP: Shatzki's, not dilated as no dysphagia. Small HH. Near-obstructing colon cancer. Rectal polyp. Diverticulosis. REC: Will leave on clears for now pending discussion re: surgery. CT C/A/P. CEA. Await path. ARDEN BOCANEGRA MD Dec 18, 2019 13:33
[2019-12-18 15:00] VITALS: BP 119/69
[2019-12-18] MEDS ORDERED: IOHEXOL 300 MG/ML 100ML VIAL. IV ONE (15:45)
[2019-12-18] MEDS ORDERED: IOHEXOL 240 MG/ML 50ML VIAL. PO ONE (15:45)
[2019-12-18] MEDS ORDERED: CONTRAST GIVEN. MC PRN (15:45)
--- NOTE | 2019-12-18 16:08 | PDOC ---
PROGRESS NOTES Date of Service: DATE: 12/18/19 TIME: 16:01 Chief Complaint Chief Complaint Claudication History of Present Illness History of Present Illness 64 y/o male w/ h/o CAD s/p stent(s) placement in 10/2019 on Brilinta and ASA and h/o PVD w/ RLE pain here for femoral runoff which was cancelled due to anemia. Denies hematemesis, hematochezia, and melena. Rare heartburn after eating Turkmen food, maybe takes Rolaids sometimes. No dysphagia, n/v, abd pain, diarrhea, or constipation. Has lost some weight after he quit drinking soda. No previous EGD or colonoscopy, maybe had an UGI once. No GB, liver, pancreas, or PUD history. Rare NSAIDs. 12/16/2019 No acute events overnight. Patient's hemoglobin remained stable at 8.2. No further bleeding anywhere. Patient's chart, labs, images were reviewed and discussed with RN 12/17/2019 Patient's hemoglobin remained stable. No bloody stools. Patient's chart, labs, images were reviewed and discussed with RN Report some pain with ambulation. Denies any nausea, vomiting, fever, or bloody stools. Vitals Vitals Vital Signs Date Time Temp Pulse Resp B/P (MAP) Pulse Ox O2 Delivery O2 Flow Rate FiO2 12/18/19 13:52 73 18 114/58 97 Room Air 12/18/19 13:42 5 12/18/19 13:27 98.6 98.6 Physical Exam Physical Exam General: No acute distress Heart: Regular rate Abdomen: Normal bowel sounds Extremities: No cyanosis General: No acute distress Heart: Regular rate Lungs: Clear Abdomen: Normal bowel sounds Extremities: No cyanosis Skin: No rashes Review of Systems Review of Systems Left foot pain. Denies bloody stools, denies nausea, denies vomiting, denies fever. Assessment and Plan Assessmemt and Plan MARKED ANEMIA, POSSIBLE GI BLEED, MICROCYTIC CAD Ischemic cardiomyopathy HX Successful PCI/drug-eluting stents placement to the right coronary artery. 11/01/19 Severe hypokinesis of mid to distal anteroseptal wall and apical wall. Ejection fraction estimated at 35%.11/05 ECHO HTN HLP Tobacco and alcohol abuse PLAN Status post 2 units PRBC hemoglobin stable Consult DR PASNORI Appreciate GI recommendations; upper and lower endoscopy 12/18/2019 Comment Review of Relevant I have reviewed the following items christi (where applicable) has been applied. Labs Laboratory Tests Test 12/17/19 07:35 White Blood Count 11.0 x10^3/uL (4.0-11.0) Red Blood Count 3.88 x10^6/uL (4.30-5.70) Hemoglobin 8.2 g/dL (13.0-17.5) Hematocrit 26.3 % (39.0-53.0) Mean Corpuscular Volume 68 fL (79-100) Mean Corpuscular Hemoglobin 21 pg (25-35) Mean Corpuscular Hemoglobin Concent 31 g/dL (31-37) Red Cell Distribution Width 26.1 % (11.5-14.5) Platelet Count 433 x10^3/uL (140-400) Neutrophils (%) (Auto) 69 % (31-73) Lymphocytes (%) (Auto) 16 % (24-48) Monocytes (%) (Auto) 9 % (0-9) Eosinophils (%) (Auto) 5 % (0-3) Basophils (%) (Auto) 1 % (0-3) Neutrophils # (Auto) 7.6 x10^3/uL (1.8-7.7) Lymphocytes # (Auto) 1.8 x10^3/uL (1.0-4.8) Monocytes # (Auto) 1.0 x10^3/uL (0.0-1.1) Eosinophils # (Auto) 0.6 x10^3/uL (0.0-0.7) Basophils # (Auto) 0.1 x10^3/uL (0.0-0.2) Platelet Estimate Adequate (ADEQUATE) Polychromasia Present Hypochromasia Present Poikilocytosis Present Anisocytosis Present Microcytosis Present Macrocytosis Present RBC Morphology Bizarre Forms Present Medications Current Medications Iodixanol (Visipaque 320) 100 ml STK-MED ONCE .ROUTE ; Start 12/15/19 at 07:47; Stop 12/15/19 at 07:47; Status DC Lidocaine HCl (Lidocaine 1% 20ml Vial) 20 ml STK-MED ONCE .ROUTE ; Start 12/15/19 at 07:47; Stop 12/15/19 at 07:47; Status DC Heparin Sodium/ Sodium Chloride 0 ml @ As Directed STK-MED ONCE .ROUTE ; Start 12/15/19 at 07:47; Stop 12/15/19 at 07:48; Status DC Sodium Chloride 1,000 ml @ 60 mls/hr [id number] IV Last administered on 12/15/19at 16:04; Start 12/15/19 at 08:49; Stop 12/16/19 at 08:48; Status DC Clopidogrel Bisulfate (Plavix) 75 mg DAILYWBKFT PO Last administered on 12/16/19at 08:17; Start 12/16/19 at 08:00; Stop 12/17/19 at 07:59; Status DC Pantoprazole Sodium (Protonix) 40 mg DAILYAC PO Last administered on 12/16/19at 08:19; Start 12/16/19 at 07:30; Stop 12/17/19 at 07:29; Status DC Atorvastatin Calcium (Lipitor) 40 mg QHS PO Last administered on 12/17/19at 21:28; Start 12/15/19 at 21:00; Stop 12/18/19 at 13:55; Status DC Losartan Potassium (Cozaar) 50 mg DAILY PO Last administered on 12/18/19at 09:07; Start 12/16/19 at 09:00 Metoprolol Succinate (Toprol Xl) 50 mg DAILY PO Last administered on 12/18/19at 09:08; Start 12/16/19 at 09:00; Stop 12/18/19 at 13:54; Status DC Nitroglycerin (Nitrostat) 0.4 mg PRN Q5MIN PRN SL CHEST PAIN; Start 12/15/19 at 16:15 Non-Formulary Medication (Fluticasone/ Salmeterol (Advair 100-50 Diskus)) 1 puff BID IH ; Start 12/15/19 at 21:00; Status UNV Multivitamins (Thera M Plus) 1 tab DAILY PO Last administered on 12/18/19at 09:07; Start 12/16/19 at 09:00 Albuterol Sulfate (Ventolin Neb Soln) 2.5 mg RTQID NEB Last administered on 12/18/19at 11:46; Start 12/15/19 at 20:00 Budesonide (Pulmicort) 0.5 mg RTBID NEB Last administered on 12/18/19at 07:37; Start 12/15/19 at 20:00 Cyclobenzaprine HCl (Flexeril) 5 mg PRN QHS PRN PO MUSCLE SPASMS; Start 12/15/19 at 16:30 Furosemide (Lasix) 20 mg 1X ONCE IVP Last administered on 12/15/19at 18:38; Start 12/15/19 at 17:30; Stop 12/15/19 at 17:31; Status DC Magnesium Citrate (Citroma) 296 ml 1X ONCE PO Last administered on 12/17/19at 09:45; Start 12/17/19 at 09:00; Stop 12/17/19 at 09:01; Status DC Polyethylene Glycol (miraLAX Powder BULK BOTTLE) 238 gm 1X ONCE PO Last administered on 12/17/19at 15:13; Start 12/17/19 at 15:00; Stop 12/17/19 at 15:01; Status DC Bisacodyl (Dulcolax Tab) 20 mg 1X ONCE PO Last administered on 12/17/19at 14:14; Start 12/17/19 at 14:00; Stop 12/17/19 at 14:01; Status DC Ringer's Solution 1,000 ml @ 75 mls/hr [id number] IV Last administered on 12/18/19at 12:19; Start 12/18/19 at 12:30 Propofol (Diprivan) 200 mg STK-MED ONCE IV ; Start 12/18/19 at 12:31; Stop 12/18/19 at 12:31; Status DC Lidocaine HCl (Lidocaine Pf 2% Vial) 5 ml STK-MED ONCE .ROUTE ; Start 12/18/19 at 12:31; Stop 12/18/19 at 12:31; Status DC Ephedrine Sulfate (ePHEDrine PF IN SALINE SYRINGE) 50 mg STK-MED ONCE IV ; Start 12/18/19 at 12:33; Stop 12/18/19 at 12:33; Status DC Ephedrine Sulfate (Akovaz) 50 mg STK-MED ONCE .ROUTE ; Start 12/18/19 at 12:34; Stop 12/18/19 at 12:34; Status DC Metoprolol Succinate (Toprol Xl) 50 mg DAILY PO ; Start 9/1/20 at 09:00 Atorvastatin Calcium (Lipitor) 40 mg QHS PO ; Start 12/18/19 at 21:00 Iohexol (Omnipaque 300 Mg/ml) 75 ml 1X ONCE IV ; Start 12/18/19 at 15:45; Stop 12/18/19 at 15:46; Status DC Iohexol (Omnipaque 240 Mg/ml) 50 ml 1X ONCE PO ; Start 12/18/19 at 15:45; Stop 12/18/19 at 15:46; Status DC Info (CONTRAST GIVEN -- Rx MONITORING) 1 each PRN DAILY PRN MC SEE COMMENTS; Start 12/18/19 at 15:45; Stop 12/20/19 at 15:44 Active Scripts Active Metoprolol Succinate ( Xl ) (Metoprolol Succinate) 25 Mg Tab.er.24h 50 Mg PO DAILY 30 Days Nitrostat (Nitroglycerin) 0.4 Mg Tab.subl 0.4 Mg SL PRN Q5MIN PRN 30 Days Atorvastatin Calcium 20 Mg Tablet 40 Mg PO QHS 30 Days Reported Amlodipine Besylate 10 Mg Tablet 1 Tab PO DAILY Daily Vitamin (Multivitamin) 1 Each Tablet 1 Each PO Advair 100-50 Diskus (Fluticasone/Salmeterol) 1 Each Disk.w.dev 1 Puff IH BID Aspirin 81 Mg Tab.chew 1 Tab PO DAILY Losartan Potassium 50 Mg Tablet 1 Tab PO DAILY Vitals/I & O Vital Sign - Last 24 Hours 12/17/19 12/17/19 12/17/19 12/17/19 19:00 20:01 20:02 20:15 Temp 98.0 98.0 Pulse 52 Resp 18 B/P (MAP) 110/66 (81) Pulse Ox 97 O2 Delivery Room Air Room Air Room Air Room Air 12/17/19 12/18/19 12/18/19 12/18/19 23:00 03:00 07:00 07:37 Temp 97.9 98.1 98.3 97.9 98.1 98.3 Pulse 87 81 78 Resp 22 20 20 B/P (MAP) 121/56 (77) 118/63 (81) 116/50 (72) Pulse Ox 92 97 97 97 O2 Delivery Room Air Room Air Room Air Room Air 12/18/19 12/18/19 12/18/19 12/18/19 08:00 09:07 09:08 11:00 Temp 98.3 98.3 Pulse 90 78 83 Resp 20 B/P (MAP) 175/85 116/50 112/68 (83) Pulse Ox 97 O2 Delivery Room Air Room Air 12/18/19 12/18/19 12/18/19 12/18/19 11:47 12:08 12:08 13:27 Temp 98.1 98.6 98.1 98.6 Pulse 79 73 Resp 20 18 B/P (MAP) 84/51 Pulse Ox 97 97 O2 Delivery Room Air Room Air Room Air O2 Flow Rate 10 12/18/19 12/18/19 13:42 13:52 Pulse 71 73 Resp 18 18 B/P (MAP) 111/53 114/58 Pulse Ox 97 97 O2 Delivery Nasal Cannula Room Air O2 Flow Rate 5 Intake and Output 12/17/19 12/17/19 12/18/19 15:00 23:00 07:00 Intake Total 120 ml 50 ml Balance 120 ml 50 ml Justicifation of Admission Dx: Justifications for Admission: Justification of Admission Dx: Yes WI: Acute STEMI SOLIS BRUNER MD Dec 18, 2019 16:08
[2019-12-18 19:00] VITALS: BP 179/63
[2019-12-18] MEDS: ATORVASTATIN CALCIUM 40 MG TABLET. PO SCH (20:40)
[2019-12-18 23:00] VITALS: BP 122/67
[2019-12-19 03:00] VITALS: BP 107/62
[2019-12-19 05:24] LABS: BASO # 0.1 x10^3/uL (0.0-0.2); BASO % 1 % (0-3); EOS # 0.6 x10^3/uL (0.0-0.7); EOS % 6 % (0-3); HEMATOCRIT 27.7 % (39.0-53.0); HEMOGLOBIN 8.7 g/dL (13.0-17.5); LYMPH # 1.8 x10^3/uL (1.0-4.8); LYMPH % 17 % (24-48); MEAN CORPUSCULAR HEMOGLOBIN 21 pg (25-35); MEAN CORPUSCULAR HGB CONC 31 g/dL (31-37); MEAN CORPUSCULAR VOLUME 67 fL (79-100); MONO % 9 % (0-9); NEUT # 6.8 x10^3/uL (1.8-7.7); NEUT % 66 % (31-73); PLATELET COUNT 464 x10^3/uL (140-400); RED BLOOD COUNT 4.14 x10^6/uL (4.30-5.70); RED CELL DISTRIBUTION WIDTH 26.1 % (11.5-14.5); WHITE BLOOD COUNT 10.3 x10^3/uL (4.0-11.0)
[2019-12-19 05:40] LABS: CALCIUM 8.7 mg/dL (8.5-10.1); CREATININE 0.8 mg/dL (0.7-1.3); POTASSIUM 3.9 mmol/L (3.5-5.1)
[2019-12-19 07:00] VITALS: BP 126/63
[2019-12-19] MEDS: ALBUTEROL SULFATE 2.5 MG/3 ML NEBU. NEB SCH ×4 (08:00→19:28)
[2019-12-19] MEDS: BUDESONIDE 0.5 MG/2 ML NEBU. NEB SCH ×2 (08:00→19:28)
--- NOTE | 2019-12-19 08:49 | RAD ---
CT of the chest, abdomen, and pelvis. 12/19/2019 INDICATION: Colon cancer. COMPARISON STUDY: None available. TECHNIQUE: Multidetector CT imaging of the chest, abdomen, and pelvis was performed following the administration of IV contrast. FINDINGS: CHEST: Heart is mildly enlarged. Dense coronary calcification is present. Scattered mediastinal lymphadenopathy noted. There is a pretracheal lymph node that is enlarged by size criterion measuring 2.1 cm in short and long axis and 1.6 cm in short axis. Smaller subcarinal and left hilar nodes appear to be present. The appearance is nonspecific. Pleural calcification in the medial apical left lung noted. There is severe emphysematous change. Calcified pleural plaques are seen in the lung bases as well. Correlate with history of asbestos exposure. Multifocal areas of pleural parenchymal scarring are seen. Mild pleural thickening is noted multiple areas. Allowing for these changes no definitive focal mass is identified. No gross evidence of metastatic disease is seen. No this exam may have limited sensitivity for small subcentimeter nodules given the severity of underlying lung disease. Abdomen and pelvis: Scattered calcifications noted within the liver suggest prior granulomatous disease. Liver is otherwise unremarkable. Noted. Adrenal glands are unremarkable. The spleen demonstrates small calcifications again suggest prior granulomatous disease. Simple appearing cysts noted in the medial right kidney measuring 3.4 cm in diameter. Kidneys are otherwise unremarkable. Pancreas is grossly unremarkable. There is no evidence of bowel obstruction. There is masslike thickening of the splenic flexure consistent with malignancy. There is a more solid-appearing component extending cephalad into the pericolonic fat with mild surrounding inflammatory change. Immediately adjacent to this area within the colon there are mildly prominent lymph nodes. A rounded lymph node can be seen on axial image 18 measuring approximately 9 mm in size. Nodes adjacent to the affected bowel are slightly more prominent than elsewhere in the mesentery. Metastatic disease is suspected. No acute osseous abnormalities are identified the chest abdomen or pelvis. IMPRESSION: 1. Colonic mass at the splenic flexure, which appears to extend cephalad cephalad into the mesenteric fat. The appearance is most consistent with malignancy. Small adjacent lymph nodes while ultimately nonspecific, are concerning for metastatic adenopathy. 2. Nonspecific thoracic adenopathy including a 2.1 cm x 1.6 cm pretracheal node . Metastatic disease cannot be excluded on the basis of this study. Consider PET/CT for further characterization. 3. Severe emphysema, with multifocal pleural parenchymal scarring, and calcified pleural plaques. Correlate with history of asbestos exposure 4. Extensive coronary calcification CT DOSING PQRS STATEMENT: One or more of the following individualized dose reduction techniques were utilized for this examination: 1. Automated exposure control 2. Adjustment of the mA and/or kV according to patient size 3. Use of iterative reconstruction technique Electronically signed by: Pietro Ho MD (12/19/2019 8:47 AM) [id number]
--- NOTE | 2019-12-19 10:00 | NUR ---
SW following. Discussed with RN, pt has surgery consult after result of colonoscopy - possible mass. SW will continue to follow for discharge planning.
--- NOTE | 2019-12-19 10:06 | PDOC2 ---
LONI HUFF FIRE ENGINE OPERATOR 12/19/19 1006: CONSULT Date of Consult Date of Consult DATE: 12/19/19 TIME: 10:00 Reason for Consult Reason for Consult: colon mass Referring Physician Referring Physician: Dr Wilkerson Identification/Chief Complaint Chief Complaint anemia Source Source: Chart review, Patient History of Present Illness Reason for Visit: Had been here for a femoral runoff, hx of stents placed in October --on Bril[place]a and ASA-- was noted to have significant anemia--admitted for evaluation--colonoscopy showed a near obstructing mass in sigmoid/descending colon No abdominal pain, denies changes in his stools, no trouble eating, weight loss after stopping soda Past Medical History Cardiovascular: CAD, HTN Past Surgical History Past Surgical History: No pertinent history Family History Family History: High Cholestrol, Hypertension Social History Quit (63 days ) ALCOHOL: other (2-3 beers a day, drank more before he quit smoking ) Drugs: None Current Medications Current Medications Current Medications Iodixanol (Visipaque 320) 100 ml STK-MED ONCE .ROUTE ; Start 12/15/19 at 07:47; Stop 12/15/19 at 07:47; Status DC Lidocaine HCl (Lidocaine 1% 20ml Vial) 20 ml STK-MED ONCE .ROUTE ; Start 12/15/19 at 07:47; Stop 12/15/19 at 07:47; Status DC Heparin Sodium/ Sodium Chloride 0 ml @ As Directed STK-MED ONCE .ROUTE ; Start 12/15/19 at 07:47; Stop 12/15/19 at 07:48; Status DC Sodium Chloride 1,000 ml @ 60 mls/hr [id number] IV Last administered on 12/15/19at 16:04; Start 12/15/19 at 08:49; Stop 12/16/19 at 08:48; Status DC Clopidogrel Bisulfate (Plavix) 75 mg DAILYWBKFT PO Last administered on 12/16/19at 08:17; Start 12/16/19 at 08:00; Stop 12/17/19 at 07:59; Status DC Pantoprazole Sodium (Protonix) 40 mg DAILYAC PO Last administered on 12/16/19at 08:19; Start 12/16/19 at 07:30; Stop 12/17/19 at 07:29; Status DC Atorvastatin Calcium (Lipitor) 40 mg QHS PO Last administered on 12/17/19at 21:28; Start 12/15/19 at 21:00; Stop 12/18/19 at 13:55; Status DC Losartan Potassium (Cozaar) 50 mg DAILY PO Last administered on 12/18/19at 09:07; Start 12/16/19 at 09:00 Metoprolol Succinate (Toprol Xl) 50 mg DAILY PO Last administered on 12/18/19at 09:08; Start 12/16/19 at 09:00; Stop 12/18/19 at 13:54; Status DC Nitroglycerin (Nitrostat) 0.4 mg PRN Q5MIN PRN SL CHEST PAIN; Start 12/15/19 at 16:15 Non-Formulary Medication (Fluticasone/ Salmeterol (Advair 100-50 Diskus)) 1 puff BID IH ; Start 12/15/19 at 21:00; Status UNV Multivitamins (Thera M Plus) 1 tab DAILY PO Last administered on 12/18/19at 09:07; Start 12/16/19 at 09:00 Albuterol Sulfate (Ventolin Neb Soln) 2.5 mg RTQID NEB Last administered on 12/18/19at 11:46; Start 12/15/19 at 20:00 Budesonide (Pulmicort) 0.5 mg RTBID NEB Last administered on 12/18/19at 07:37; Start 12/15/19 at 20:00 Cyclobenzaprine HCl (Flexeril) 5 mg PRN QHS PRN PO MUSCLE SPASMS; Start 12/15/19 at 16:30 Furosemide (Lasix) 20 mg 1X ONCE IVP Last administered on 12/15/19at 18:38; Start 12/15/19 at 17:30; Stop 12/15/19 at 17:31; Status DC Magnesium Citrate (Citroma) 296 ml 1X ONCE PO Last administered on 12/17/19at 09:45; Start 12/17/19 at 09:00; Stop 12/17/19 at 09:01; Status DC Polyethylene Glycol (miraLAX Powder BULK BOTTLE) 238 gm 1X ONCE PO Last administered on 12/17/19at 15:13; Start 12/17/19 at 15:00; Stop 12/17/19 at 15:01; Status DC Bisacodyl (Dulcolax Tab) 20 mg 1X ONCE PO Last administered on 12/17/19at 14:14; Start 12/17/19 at 14:00; Stop 12/17/19 at 14:01; Status DC Ringer's Solution 1,000 ml @ 75 mls/hr [id number] IV Last administered on at 12:19; Start 12/18/19 at 12:30; Stop 12/18/19 at 20:00; Status DC Propofol (Diprivan) 200 mg STK-MED ONCE IV ; Start 12/18/19 at 12:31; Stop 12/18/19 at 12:31; Status DC Lidocaine HCl (Lidocaine Pf 2% Vial) 5 ml STK-MED ONCE .ROUTE ; Start 12/18/19 at 12:31; Stop 12/18/19 at 12:31; Status DC Ephedrine Sulfate (ePHEDrine PF IN SALINE SYRINGE) 50 mg STK-MED ONCE IV ; Sta rt 12/18/19 at 12:33; Stop 12/18/19 at 12:33; Status DC Ephedrine Sulfate (Akovaz) 50 mg STK-MED ONCE .ROUTE ; Start 12/18/19 at 12:34; Stop 12/18/19 at 12:34; Status DC Metoprolol Succinate (Toprol Xl) 50 mg DAILY PO ; Start 12/19/19 at 09:00 Atorvastatin Calcium (Lipitor) 40 mg QHS PO Last administered on 12/18/19at 20:40; Start 12/18/19 at 21:00 Iohexol (Omnipaque 300 Mg/ml) 75 ml 1X ONCE IV Last administered on 12/18/19at 16:02; Start 12/18/19 at 15:45; Stop 12/18/19 at 15:46; Status DC Iohexol (Omnipaque 240 Mg/ml) 50 ml 1X ONCE PO Last administered on 12/18/19at 16:02; Start 12/18/19 at 15:45; Stop 12/18/19 at 15:46; Status DC Info (CONTRAST GIVEN -- Rx MONITORING) 1 each PRN DAILY PRN MC SEE COMMENTS; Start 12/18/19 at 15:45; Stop 12/20/19 at 15:44 Ondansetron HCl (Zofran) 4 mg PRN Q6HRS PRN IV NAUSEA/VOMITING; Start 12/20/19 at 07:00; Stop 12/21/19 at 06:59 Fentanyl Citrate (Fentanyl 2ml Vial) 25 mcg PRN Q5MIN PRN IV MILD PAIN 1-3; Start 12/20/19 at 07:00; Stop 12/21/19 at 06:59 Fentanyl Citrate (Fentanyl 2ml Vial) 50 mcg PRN Q5MIN PRN IV MODERATE TO SEVERE PAIN; Start 12/20/19 at 07:00; Stop 12/21/19 at 06:59 Morphine Sulfate (Morphine Sulfate) 1 mg PRN Q10MIN PRN IV SEVERE PAIN 7-10; Start 12/20/19 at 07:00; Stop 12/21/19 at 06:59 Ringer's Solution 1,000 ml @ 30 mls/hr Q24H IV ; Start 12/20/19 at 07:00; Stop 12/20/19 at 18:59 Lidocaine HCl (Xylocaine-Mpf 1% 2ml Vial) 2 ml PRN 1X PRN ID PRIOR TO IV START; Start 12/20/19 at 07:00; Stop 12/21/19 at 06:59 Hydromorphone HCl (Dilaudid) 0.5 mg PRN Q10MIN PRN IV SEV PAIN, Second choice; Start 12/20/19 at 07:00; Stop 12/21/19 at 06:59 Prochlorperazine Edisylate (Compazine) 5 mg PACU PRN PRN IV NAUSEA, MRX1; Start 12/20/19 at 07:00; Stop 12/21/19 at 06:59 Active Scripts Active Metoprolol Succinate ( Xl ) (Metoprolol Succinate) 25 Mg Tab.er.24h 50 Mg PO DAILY 30 Days Nitrostat (Nitroglycerin) 0.4 Mg Tab.subl 0.4 Mg SL PRN Q5MIN PRN 30 Days Atorvastatin Calcium 20 Mg Tablet 40 Mg PO QHS 30 Days Reported Amlodipine Besylate 10 Mg Tablet 1 Tab PO DAILY Daily Vitamin (Multivitamin) 1 Each Tablet 1 Each PO Advair 100-50 Diskus (Fluticasone/Salmeterol) 1 Each Disk.w.dev 1 Puff IH BID Aspirin 81 Mg Tab.chew 1 Tab PO DAILY Losartan Potassium 50 Mg Tablet 1 Tab PO DAILY Allergies Allergies: Coded Allergies: No Known Drug Allergies (Unverified , 12/18/19) ROS General: No: Chills, Other (fevers ) PSYCHOLOGICAL ROS: No: Anxiety, Depression Eyes: No Blurry vision, No Double vision HEENT: No: Heacaches, Sore Throat Hematological and Lymphatic: YES: Bleeding Problems; No: Blood Clots Respiratory: No: Cough, Shortness of breath Cardiovascular: No Chest Pain, No Palpitations Gastrointestinal: No Nausea, No Vomiting, No Abdominal Pain Genitourinary: No Dysuria, No Hematuria Musculoskeletal: No Joint Pain, No Muscle Pain Neurological: No Impaired Coord/balance, No Numbness/Tingling Skin: No Pruritus, No Rash Physical Exam General: Alert, Oriented X3, Cooperative HEENT: Atraumatic, PERRLA Lungs: Clear to auscultation, Normal air movement Heart: Regular rate, Normal S1, Normal S2 Abdomen: Soft, No tenderness, No hepatosplenomegaly Extremities: No clubbing, No cyanosis Skin: No rashes, No breakdown Neuro: Normal speech, Sensation intact Psych/Mental Status: Mental status NL, Mood NL MUSCULOSKELETAL: No deformity, No swelling Vitals VITALS Vital Signs Date Time Temp Pulse Resp B/P (MAP) Pulse Ox O2 Delivery O2 Flow Rate FiO2 12/19/19 07:00 98.4 90 17 126/63 (84) 95 Room Air 98.4 12/18/19 13:42 5 Labs Labs Laboratory Tests Test 12/19/19 04:20 White Blood Count 10.3 x10^3/uL (4.0-11.0) Red Blood Count 4.14 x10^6/uL (4.30-5.70) Hemoglobin 8.7 g/dL (13.0-17.5) Hematocrit 27.7 % (39.0-53.0) Mean Corpuscular Volume 67 fL (79-100) Mean Corpuscular Hemoglobin 21 pg (25-35) Mean Corpuscular Hemoglobin Concent 31 g/dL (31-37) Red Cell Distribution Width 26.1 % (11.5-14.5) Platelet Count 464 x10^3/uL (140-400) Neutrophils (%) (Auto) 66 % (31-73) Lymphocytes (%) (Auto) 17 % (24-48) Monocytes (%) (Auto) 9 % (0-9) Eosinophils (%) (Auto) 6 % (0-3) Basophils (%) (Auto) 1 % (0-3) Neutrophils # (Auto) 6.8 x10^3/uL (1.8-7.7) Lymphocytes # (Auto) 1.8 x10^3/uL (1.0-4.8) Monocytes # (Auto) 1.0 x10^3/uL (0.0-1.1) Eosinophils # (Auto) 0.6 x10^3/uL (0.0-0.7) Basophils # (Auto) 0.1 x10^3/uL (0.0-0.2) Sodium Level 134 mmol/L (136-145) Potassium Level 3.9 mmol/L (3.5-5.1) Chloride Level 100 mmol/L (98-107) Carbon Dioxide Level 23 mmol/L (21-32) Anion Gap 11 (6-14) Blood Urea Nitrogen 7 mg/dL (8-26) Creatinine 0.8 mg/dL (0.7-1.3) Estimated GFR (Cockcroft-Gault) 98.0 Glucose Level 92 mg/dL (70-99) Calcium Level 8.7 mg/dL (8.5-10.1) Laboratory Tests Test 12/19/19 04:20 White Blood Count 10.3 x10^3/uL (4.0-11.0) Red Blood Count 4.14 x10^6/uL (4.30-5.70) Hemoglobin 8.7 g/dL (13.0-17.5) Hematocrit 27.7 % (39.0-53.0) Mean Corpuscular Volume 67 fL (79-100) Mean Corpuscular Hemoglobin 21 pg (25-35) Mean Corpuscular Hemoglobin Concent 31 g/dL (31-37) Red Cell Distribution Width 26.1 % (11.5-14.5) Platelet Count 464 x10^3/uL (140-400) Neutrophils (%) (Auto) 66 % (31-73) Lymphocytes (%) (Auto) 17 % (24-48) Monocytes (%) (Auto) 9 % (0-9) Eosinophils (%) (Auto) 6 % (0-3) Basophils (%) (Auto) 1 % (0-3) Neutrophils # (Auto) 6.8 x10^3/uL (1.8-7.7) Lymphocytes # (Auto) 1.8 x10^3/uL (1.0-4.8) Monocytes # (Auto) 1.0 x10^3/uL (0.0-1.1) Eosinophils # (Auto) 0.6 x10^3/uL (0.0-0.7) Basophils # (Auto) 0.1 x10^3/uL (0.0-0.2) Sodium Level 134 mmol/L (136-145) Potassium Level 3.9 mmol/L (3.5-5.1) Chloride Level 100 mmol/L (98-107) Carbon Dioxide Level 23 mmol/L (21-32) Anion Gap 11 (6-14) Blood Urea Nitrogen 7 mg/dL (8-26) Creatinine 0.8 mg/dL (0.7-1.3) Estimated GFR (Cockcroft-Gault) 98.0 Glucose Level 92 mg/dL (70-99) Calcium Level 8.7 mg/dL (8.5-10.1) Assessment/Plan Assessment/Plan colon mass tentatively plan OR 12/19 TANGELA MORTENSEN MD 12/19/19 1254: CONSULT Assessment/Plan Assessment/Plan Pt seen and examined by myself; Pt found to be anemic during evaluation for vascular leg pain. Colonoscopy described a desc colon tumor, seen at splenic fl exure on CT scan. Pt asymptomatic from colon tumor. PMH/PSH/ROS/SH as above; exam: alert, oriented, lungs diminished, heart RR and R, abdomen soft, nontender, nondistended, ext neg for edema; A/P) Colon tumor, likely malignant; recommend colon resection. The details and risks of surgery were discussed with the patient. His surgical risks are increased due to his multiple medical problems. He understands and would like to proceed. Plan to OR tomorrow. LONI HUFF APRN Dec 19, 2019 10:06 TANGELA MORTENSEN MD Dec 19, 2019 12:54
[2019-12-19] MEDS: LOSARTAN POTASSIUM 50 MG TABLET. PO SCH (10:10)
[2019-12-19] MEDS: MULTIVITAMIN with MINERAL TABLET. PO SCH (10:10)
[2019-12-19] MEDS: METOPROLOL SUCC 24HR ER 50 MG TAB.ER.24H. PO SCH (10:10)
--- NOTE | 2019-12-19 10:48 | PDOC ---
ARIANE CURTIS INTEGRATIVE MEDICINE PHYSICIAN 12/19/19 1048: CARDIO Progress Notes Date and Time Date of Service 12/19/19 Time of Evaluation 1030 Subjective Subjective: No Chest Pain, No shortness of breath, No Palpitations Vitals Vitals Vital Signs Date Time Temp Pulse Resp B/P (MAP) Pulse Ox O2 Delivery O2 Flow Rate FiO2 12/19/19 10:10 90 126/63 12/19/19 07:00 98.4 17 95 Room Air 98.4 12/18/19 13:42 5 Weight Weight [ ] Input and Output Intake and Output Intake and Output 12/19/19 07:00 Intake Total 1000 ml Balance 1000 ml Intake Oral 700 ml IV Total 300 ml # Voids 5 Laboratory Labs Laboratory Tests Test 12/19/19 04:20 White Blood Count 10.3 x10^3/uL (4.0-11.0) Red Blood Count 4.14 x10^6/uL (4.30-5.70) Hemoglobin 8.7 g/dL (13.0-17.5) Hematocrit 27.7 % (39.0-53.0) Mean Corpuscular Volume 67 fL (79-100) Mean Corpuscular Hemoglobin 21 pg (25-35) Mean Corpuscular Hemoglobin Concent 31 g/dL (31-37) Red Cell Distribution Width 26.1 % (11.5-14.5) Platelet Count 464 x10^3/uL (140-400) Neutrophils (%) (Auto) 66 % (31-73) Lymphocytes (%) (Auto) 17 % (24-48) Monocytes (%) (Auto) 9 % (0-9) Eosinophils (%) (Auto) 6 % (0-3) Basophils (%) (Auto) 1 % (0-3) Neutrophils # (Auto) 6.8 x10^3/uL (1.8-7.7) Lymphocytes # (Auto) 1.8 x10^3/uL (1.0-4.8) Monocytes # (Auto) 1.0 x10^3/uL (0.0-1.1) Eosinophils # (Auto) 0.6 x10^3/uL (0.0-0.7) Basophils # (Auto) 0.1 x10^3/uL (0.0-0.2) Sodium Level 134 mmol/L (136-145) Potassium Level 3.9 mmol/L (3.5-5.1) Chloride Level 100 mmol/L (98-107) Carbon Dioxide Level 23 mmol/L (21-32) Anion Gap 11 (6-14) Blood Urea Nitrogen 7 mg/dL (8-26) Creatinine 0.8 mg/dL (0.7-1.3) Estimated GFR (Cockcroft-Gault) 98.0 Glucose Level 92 mg/dL (70-99) Calcium Level 8.7 mg/dL (8.5-10.1) Physical Exam HEENT: Neck Supple W Full Motion Chest: Symmetric LUNGS: Clear to Auscultation Heart: RRR (heart tones regular, not on tele) Abdomen: Soft N/T Extremities: No Edema Neurology: alert, oriented, follow commands Assessment Assessment 1. Anemia, iron deficient; s/p 23 units of PRBCs. EGD/colonoscopy complete. Near-obstructing tumor noted in the sigmoid/descending colon that was unpassable. Surgical team consulted- tentative OR plan for tomorrow 2. CAD s/p PCI/FALGUNI to LAD and RCA (10/29/19). stable and chest pain free. 3. Chromic systolic heart failure, ischemic CMP. LVEF 35%. Clinically well compensated. 4. HTN: controlled 5. HLP: statins 6. PAD with claudication, consider aortogram at a later date Recommendations Ticagrelor, ASA on hold with anemia, plans for surgery Given recent STEMI/FALGUNI, will need to resume antiplatelet therapy as soon as possible; either tomorrow or day following. Would prefer DAPT with ASA/Plavix. If too high risk for bleed, consider Plavix therapy alone. Will re-evaluate post-surgery. Continue current medical regimen. Plan to repeat echo in 3 mos to evaluate need for AICD implantation. Justicifation of Admission Dx: Justifications for Admission: Justification of Admission Dx: Yes NV: Acute STEMI KEDAR SANTACRUZ MD 12/19/19 9501: CARDIO Progress Notes Assessment Assessment Patient seen and examined. Agree with TOP SPOTTER's assessment and plan. Plan for surgical resection of colon mass possibly CA per GS team tomorrow CAD stable for now but would resume atleast Plavix post surgery as soon as possible from GS standpoint Aortogram not urgent and can be done in the future once active issues resolve EVER,ARIANE INTEGRATIVE MEDICINE PHYSICIAN Dec 19, 2019 10:48 KEDAR SANTACRUZ MD Dec 19, 2019 21:59
[2019-12-19 11:00] VITALS: BP 121/53
--- NOTE | 2019-12-19 12:19 | PDOC ---
PROGRESS NOTES Date of Service: DATE: 12/19/19 TIME: 12:13 Chief Complaint Chief Complaint Claudication History of Present Illness History of Present Illness 64 y/o male w/ h/o CAD s/p stent(s) placement in 10/2019 on Brilinta and ASA and h/o PVD w/ RLE pain here for femoral runoff which was cancelled due to anemia. Denies hematemesis, hematochezia, and melena. Rare heartburn after eating [place] food, maybe takes Rolaids sometimes. No dysphagia, n/v, abd pain, diarrhea, or constipation. Has lost some weight after he quit drinking soda. No previous EGD or colonoscopy, maybe had an UGI once. No GB, liver, pancreas, or PUD history. Rare NSAIDs. 12/16/2019 No acute events overnight. Patient's hemoglobin remained stable at 8.2. No further bleeding anywhere. Patient's chart, labs, images were reviewed and discussed with RN 12/17/2019 Patient's hemoglobin remained stable. No bloody stools. Patient's chart, labs, images were reviewed and discussed with RN 12/18/2019 Report some pain with ambulation. Denies any nausea, vomiting, fever, or bloody stools. 12/19/2019 Patient evaluated at bedside. Discussed results of his colonoscopy, showing near obstructing colon cancer. Patient states he feels well, denies any abdominal pain. Addressed patient's concerns, and recommended surgical inte rvention. Patient is agreeable to surgery. Vitals Vitals Vital Signs Date Time Temp Pulse Resp B/P (MAP) Pulse Ox O2 Delivery O2 Flow Rate FiO2 12/19/19 11:00 97.7 80 17 121/53 (75) 98 Room Air 97.7 12/18/19 13:42 5 Physical Exam Physical Exam General: No acute distress Heart: Regular rate Abdomen: Normal bowel sounds Extremities: No cyanosis General: Alert, Oriented X3, Cooperative Heart: Regular rate, Normal S1, Normal S2 Lungs: Clear Abdomen: Soft, No tenderness, No hepatosplenomegaly Extremities: No clubbing, No cyanosis Skin: No rashes, No breakdown Labs LABS Laboratory Tests Test 12/19/19 04:20 White Blood Count 10.3 x10^3/uL (4.0-11.0) Red Blood Count 4.14 x10^6/uL (4.30-5.70) Hemoglobin 8.7 g/dL (13.0-17.5) Hematocrit 27.7 % (39.0-53.0) Mean Corpuscular Volume 67 fL (79-100) Mean Corpuscular Hemoglobin 21 pg (25-35) Mean Corpuscular Hemoglobin Concent 31 g/dL (31-37) Red Cell Distribution Width 26.1 % (11.5-14.5) Platelet Count 464 x10^3/uL (140-400) Neutrophils (%) (Auto) 66 % (31-73) Lymphocytes (%) (Auto) 17 % (24-48) Monocytes (%) (Auto) 9 % (0-9) Eosinophils (%) (Auto) 6 % (0-3) Basophils (%) (Auto) 1 % (0-3) Neutrophils # (Auto) 6.8 x10^3/uL (1.8-7.7) Lymphocytes # (Auto) 1.8 x10^3/uL (1.0-4.8) Monocytes # (Auto) 1.0 x10^3/uL (0.0-1.1) Eosinophils # (Auto) 0.6 x10^3/uL (0.0-0.7) Basophils # (Auto) 0.1 x10^3/uL (0.0-0.2) Sodium Level 134 mmol/L (136-145) Potassium Level 3.9 mmol/L (3.5-5.1) Chloride Level 100 mmol/L (98-107) Carbon Dioxide Level 23 mmol/L (21-32) Anion Gap 11 (6-14) Blood Urea Nitrogen 7 mg/dL (8-26) Creatinine 0.8 mg/dL (0.7-1.3) Estimated GFR (Cockcroft-Gault) 98.0 Glucose Level 92 mg/dL (70-99) Calcium Level 8.7 mg/dL (8.5-10.1) Review of Systems Review of Systems Denies abdominal pain, denies fever, denies nausea, denies vomiting, denies shortness of breath. Assessment and Plan Assessmemt and Plan Coronary artery disease Colon cancer Plan: Near obstructing colon mass seen on colonoscopy. Discussed plan of care with patient, including surgery and oncology consult. Surgery planned for t omorrow 12/20/2019. Comment Review of Relevant I have reviewed the following items christi (where applicable) has been applied. Labs Laboratory Tests Test 12/19/19 04:20 White Blood Count 10.3 x10^3/uL (4.0-11.0) Red Blood Count 4.14 x10^6/uL (4.30-5.70) Hemoglobin 8.7 g/dL (13.0-17.5) Hematocrit 27.7 % (39.0-53.0) Mean Corpuscular Volume 67 fL (79-100) Mean Corpuscular Hemoglobin 21 pg (25-35) Mean Corpuscular Hemoglobin Concent 31 g/dL (31-37) Red Cell Distribution Width 26.1 % (11.5-14.5) Platelet Count 464 x10^3/uL (140-400) Neutrophils (%) (Auto) 66 % (31-73) Lymphocytes (%) (Auto) 17 % (24-48) Monocytes (%) (Auto) 9 % (0-9) Eosinophils (%) (Auto) 6 % (0-3) Basophils (%) (Auto) 1 % (0-3) Neutrophils # (Auto) 6.8 x10^3/uL (1.8-7.7) Lymphocytes # (Auto) 1.8 x10^3/uL (1.0-4.8) Monocytes # (Auto) 1.0 x10^3/uL (0.0-1.1) Eosinophils # (Auto) 0.6 x10^3/uL (0.0-0.7) Basophils # (Auto) 0.1 x10^3/uL (0.0-0.2) Sodium Level 134 mmol/L (136-145) Potassium Level 3.9 mmol/L (3.5-5.1) Chloride Level 100 mmol/L (98-107) Carbon Dioxide Level 23 mmol/L (21-32) Anion Gap 11 (6-14) Blood Urea Nitrogen 7 mg/dL (8-26) Creatinine 0.8 mg/dL (0.7-1.3) Estimated GFR (Cockcroft-Gault) 98.0 Glucose Level 92 mg/dL (70-99) Calcium Level 8.7 mg/dL (8.5-10.1) Laboratory Tests Test 12/19/19 04:20 White Blood Count 10.3 x10^3/uL (4.0-11.0) Red Blood Count 4.14 x10^6/uL (4.30-5.70) Hemoglobin 8.7 g/dL (13.0-17.5) Hematocrit 27.7 % (39.0-53.0) Mean Corpuscular Volume 67 fL (79-100) Mean Corpuscular Hemoglobin 21 pg (25-35) Mean Corpuscular Hemoglobin Concent 31 g/dL (31-37) Red Cell Distribution Width 26.1 % (11.5-14.5) Platelet Count 464 x10^3/uL (140-400) Neutrophils (%) (Auto) 66 % (31-73) Lymphocytes (%) (Auto) 17 % (24-48) Monocytes (%) (Auto) 9 % (0-9) Eosinophils (%) (Auto) 6 % (0-3) Basophils (%) (Auto) 1 % (0-3) Neutrophils # (Auto) 6.8 x10^3/uL (1.8-7.7) Lymphocytes # (Auto) 1.8 x10^3/uL (1.0-4.8) Monocytes # (Auto) 1.0 x10^3/uL (0.0-1.1) Eosinophils # (Auto) 0.6 x10^3/uL (0.0-0.7) Basophils # (Auto) 0.1 x10^3/uL (0.0-0.2) Sodium Level 134 mmol/L (136-145) Potassium Level 3.9 mmol/L (3.5-5.1) Chloride Level 100 mmol/L (98-107) Carbon Dioxide Level 23 mmol/L (21-32) Anion Gap 11 (6-14) Blood Urea Nitrogen 7 mg/dL (8-26) Creatinine 0.8 mg/dL (0.7-1.3) Estimated GFR (Cockcroft-Gault) 98.0 Glucose Level 92 mg/dL (70-99) Calcium Level 8.7 mg/dL (8.5-10.1) Medications Current Medications Iodixanol (Visipaque 320) 100 ml [place]-MED ONCE .ROUTE ; Start 12/15/19 at 07:47; Stop 12/15/19 at 07:47; Status DC Lidocaine HCl (Lidocaine 1% 20ml Vial) 20 ml STK-MED ONCE .ROUTE ; Start 12/15/19 at 07:47; Stop 12/15/19 at 07:47; Status DC Heparin Sodium/ Sodium Chloride 0 ml @ As Directed STK-MED ONCE .ROUTE ; Start 12/15/19 at 07:47; Stop 12/15/19 at 07:48; Status DC Sodium Chloride 1,000 ml @ 60 mls/hr [id number] IV Last administered on 12/15/19at 16:04; Start 12/15/19 at 08:49; Stop 12/16/19 at 08:48; Status DC Clopidogrel Bisulfate (Plavix) 75 mg [id number] PO Last administered on 12/16/19at 08:17; Start 12/16/19 at 08:00; Stop 12/17/19 at 07:59; Status DC Pantoprazole Sodium (Protonix) 40 mg DAILYAC PO Last administered on 12/16/19at 08:19; Start 12/16/19 at 07:30; Stop 12/17/19 at 07:29; Status DC Atorvastatin Calcium (Lipitor) 40 mg QHS PO Last administered on 12/17/19at 21:28; Start 12/15/19 at 21:00; Stop 12/18/19 at 13:55; Status DC Losartan Potassium (Cozaar) 50 mg DAILY PO Last administered on 12/19/19at 10:10; Start 12/16/19 at 09:00 Metoprolol Succinate (Toprol Xl) 50 mg DAILY PO Last administered on 12/18/19at 09:08; Start 12/16/19 at 09:00; Stop 12/18/19 at 13:54; Status DC Nitroglycerin (Nitrostat) 0.4 mg PRN Q5MIN PRN SL CHEST PAIN; Start 12/15/19 at 16:15 Non-Formulary Medication (Fluticasone/ Salmeterol (Advair 100-50 Diskus)) 1 puff BID IH ; Start 12/15/19 at 21:00; Status UNV Multivitamins (Thera M Plus) 1 tab DAILY PO Last administered on 12/19/19at 10:10; Start 12/16/19 at 09:00 Albuterol Sulfate (Ventolin Neb Soln) 2.5 mg RTQID NEB Last administered on 12/18/19at 11:46; Start 12/15/19 at 20:00 Budesonide (Pulmicort) 0.5 mg RTBID NEB Last administered on 12/18/19at 07:37; Start 12/15/19 at 20:00 Cyclobenzaprine HCl (Flexeril) 5 mg PRN QHS PRN PO MUSCLE SPASMS; Start 12/15/19 at 16:30 Furosemide (Lasix) 20 mg 1X ONCE IVP Last administered on 12/15/19at 18:38; Start 12/15/19 at 17:30; Stop 12/15/19 at 17:31; Status DC Magnesium Citrate (Citroma) 296 ml 1X ONCE PO Last administered on 12/17/19at 09:45; Start 12/17/19 at 09:00; Stop 12/17/19 at 09:01; Status DC Polyethylene Glycol (miraLAX Powder BULK BOTTLE) 238 gm 1X ONCE PO Last administered on 12/17/19at 15:13; Start 12/17/19 at 15:00; Stop 12/17/19 at 15:01; Status DC Bisacodyl (Dulcolax Tab) 20 mg 1X ONCE PO Last administered on 12/17/19at 14:14; Start 12/17/19 at 14:00; Stop 12/17/19 at 14:01; Status DC Ringer's Solution 1,000 ml @ 75 mls/hr [id number] IV Last administered on 12/18/19at 12:19; Start 12/18/19 at 12:30; Stop 12/18/19 at 20:00; Status DC Propofol (Diprivan) 200 mg STK-MED ONCE IV ; Start 12/18/19 at 12:31; Stop 12/18/19 at 12:31; Status DC Lidocaine HCl (Lidocaine Pf 2% Vial) 5 ml STK-MED ONCE .ROUTE ; Start 12/18/19 at 12:31; Stop 12/18/19 at 12:31; Status DC Ephedrine Sulfate (ePHEDrine PF IN SALINE SYRINGE) 50 mg STK-MED ONCE IV ; Start 12/18/19 at 12:33; Stop 12/18/19 at 12:33; Status DC Ephedrine Sulfate (Akovaz) 50 mg STK-MED ONCE .ROUTE ; Start 12/18/19 at 12:34; Stop 12/18/19 at 12:34; Status DC Metoprolol Succinate (Toprol Xl) 50 mg DAILY PO Last administered on 12/19/19at 10:10; Start 12/19/19 at 09:00 Atorvastatin Calcium (Lipitor) 40 mg QHS PO Last administered on 12/18/19at 20:40; Start 12/18/19 at 21:00 Iohexol (Omnipaque 300 Mg/ml) 75 ml 1X ONCE IV Last administered on 12/18/19at 16:02; Start 12/18/19 at 15:45; Stop 12/18/19 at 15:46; Status DC Iohexol (Omnipaque 240 Mg/ml) 50 ml 1X ONCE PO Last administered on 12/18/19at 16:02; Start 12/18/19 at 15:45; Stop 12/18/19 at 15:46; Status DC Info (CONTRAST GIVEN -- Rx MONITORING) 1 each PRN DAILY PRN MC SEE COMMENTS; Start 12/18/19 at 15:45; Stop 12/20/19 at 15:44 Ondansetron HCl (Zofran) 4 mg PRN Q6HRS PRN IV NAUSEA/VOMITING; Start 12/20/19 at 07:00; Stop 12/21/19 at 06:59 Fentanyl Citrate (Fentanyl 2ml Vial) 25 mcg PRN Q5MIN PRN IV MILD PAIN 1-3; Start 12/20/19 at 07:00; Stop 12/21/19 at 06:59 Fentanyl Citrate (Fentanyl 2ml Vial) 50 mcg PRN Q5MIN PRN IV MODERATE TO SEVERE PAIN; Start 12/20/19 at 07:00; Stop 12/21/19 at 06:59 Morphine Sulfate (Morphine Sulfate) 1 mg PRN Q10MIN PRN IV SEVERE PAIN 7-10; Start 12/20/19 at 07:00; Stop 12/21/19 at 06:59 Ringer's Solution 1,000 ml @ 30 mls/hr Q24H IV ; Start 12/20/19 at 07:00; Stop 12/20/19 at 18:59 Lidocaine HCl (Xylocaine-Mpf 1% 2ml Vial) 2 ml PRN 1X PRN ID PRIOR TO IV START; Start 12/20/19 at 07:00; Stop 12/21/19 at 06:59 Hydromorphone HCl (Dilaudid) 0.5 mg PRN Q10MIN PRN IV SEV PAIN, Second choice; Start 12/20/19 at 07:00; Stop 12/21/19 at 06:59 Prochlorperazine Edisylate (Compazine) 5 mg PACU PRN PRN IV NAUSEA, MRX1; S tart 12/20/19 at 07:00; Stop 12/21/19 at 06:59 Active Scripts Active Metoprolol Succinate ( Xl ) (Metoprolol Succinate) 25 Mg Tab.er.24h 50 Mg PO DAILY 30 Days Nitrostat (Nitroglycerin) 0.4 Mg Tab.subl 0.4 Mg SL PRN Q5MIN PRN 30 Days Atorvastatin Calcium 20 Mg Tablet 40 Mg PO QHS 30 Days Reported Amlodipine Besylate 10 Mg Tablet 1 Tab PO DAILY Daily Vitamin (Multivitamin) 1 Each Tablet 1 Each PO Advair 100-50 Diskus (Fluticasone/Salmeterol) 1 Each Disk.w.dev 1 Puff IH BID Aspirin 81 Mg Tab.chew 1 Tab PO DAILY Losartan Potassium 50 Mg Tablet 1 Tab PO DAILY Vitals/I & O Vital Sign - Last 24 Hours 12/18/19 12/18/19 12/18/19 12/18/19 13:27 13:42 13:52 15:00 Temp 98.6 97.8 98.6 97.8 Pulse 73 71 73 79 Resp 18 18 18 20 B/P (MAP) 84/51 111/53 114/58 119/69 (86) Pulse Ox 97 97 97 96 O2 Delivery Room Air Nasal Cannula Room Air Room Air O2 Flow Rate 10 5 12/18/19 12/18/19 12/18/19 12/19/19 19:00 19:20 23:00 03:00 Temp 97.5 98.3 98.9 97.5 98.3 98.9 Pulse 86 89 79 Resp 18 18 20 B/P (MAP) 179/63 (101) 122/67 (85) 107/62 (77) Pulse Ox 96 94 95 O2 Delivery Room Air Room Air Room Air Room Air 12/19/19 12/19/19 12/19/1912/18/20 07:00 10:10 10:10 11:00 Temp 98.4 97.7 98.4 97.7 Pulse 90 90 90 80 Resp 17 17 B/P (MAP) 126/63 (84) 126/63 126/63 121/53 (75) Pulse Ox 95 98 O2 Delivery Room Air Room Air Intake and Output 12/18/19 12/18/19 12/19/19 15:00 23:00 07:00 Intake Total 300 ml 300 ml 400 ml Balance 300 ml 300 ml 400 ml Justicifation of Admission Dx: Justifications for Admission: Justification of Admission Dx: Yes [place]: Acute STEMI SOLIS BRUNER MD Dec 19, 2019 12:19
--- NOTE | 2019-12-19 12:23 | PDOC ---
Date of Service: DATE: 12/19/19 TIME: 12:21 Subjective: Subjective: Doing okay, taking clears, says having surgery tomorrow. Objective: Vital Signs: Vital Signs Date Time Temp Pulse Resp B/P (MAP) Pulse Ox O2 Delivery O2 Flow Rate FiO2 12/19/19 11:00 97.7 80 17 121/53 (75) 98 Room Air 97.7 12/18/19 13:42 5 Labs: Laboratory Tests Test 12/19/19 04:20 12/19/19 10:20 White Blood Count 10.3 x10^3/uL Red Blood Count 4.14 x10^6/uL Hemoglobin 8.7 g/dL Hematocrit 27.7 % Mean Corpuscular Volume 67 fL Mean Corpuscular Hemoglobin 21 pg Mean Corpuscular Hemoglobin Concent 31 g/dL Red Cell Distribution Width 26.1 % Platelet Count 464 x10^3/uL Neutrophils (%) (Auto) 66 % Lymphocytes (%) (Auto) 17 % Monocytes (%) (Auto) 9 % Eosinophils (%) (Auto) 6 % Basophils (%) (Auto) 1 % Neutrophils # (Auto) 6.8 x10^3/uL Lymphocytes # (Auto) 1.8 x10^3/uL Monocytes # (Auto) 1.0 x10^3/uL Eosinophils # (Auto) 0.6 x10^3/uL Basophils # (Auto) 0.1 x10^3/uL Sodium Level 134 mmol/L Potassium Level 3.9 mmol/L Chloride Level 100 mmol/L Carbon Dioxide Level 23 mmol/L Anion Gap 11 Blood Urea Nitrogen 7 mg/dL Creatinine 0.8 mg/dL Estimated GFR (Cockcroft-Gault) 98.0 Glucose Level 92 mg/dL Calcium Level 8.7 mg/dL SARS-CoV-2 Antigen (Rapid) Negative Imaging: EGD and colonoscopy 12/17 Findings: E--Mild, asymptomatic Shatzki's ring at 40cm. G--small HH D--normal to second portion. Biopsies of antrum and duodenum. MORIAH: normal --'Scope advanced to descending/sigmoid junction. At this point, near- obstructing tumor we could not pass. Biopsies taken and area tattooed; more distal tattoo includes a polyp in the area. Mucosa to this level otherwise normal. Diverticula in sigmoid. 4-5mm rectal polyp, biopsied off. Retroflex normal. Amalia. well. IMP: Shatzki's, not dilated as no dysphagia. Small HH. Near-obstructing colon cancer. Rectal polyp. Diverticulosis. REC: Will leave on clears for now pending discussion re: surgery. CT C/A/P. CEA. Await path. C/A/P CT 12/17 IMPRESSION: 1. Colonic mass at the splenic flexure, which appears to extend cephalad cephalad into the mesenteric fat. The appearance is most consistent with malignancy. Small adjacent lymph nodes while ultimately nonspecific, are concerning for metastatic adenopathy. 2. Nonspecific thoracic adenopathy including a 2.1 cm x 1.6 cm pretracheal node . Metastatic disease cannot be excluded on the basis of this study. Consider PET/CT for further characterization. 3. Severe emphysema, with multifocal pleural parenchymal scarring, and calcified pleural plaques. Correlate with history of asbestos exposure 4. Extensive coronary calcification PE: GEN: NAD LUNGS: CTAB HEART: RRR ABD: NABS, S/ND/NT NEURO/PSYCH: A & O 3 A/P: PAULINA Colon cancer CAD w/ recent stent, PVD -- Continue per surgery and cardiology. CT noted as above, path pending. Justicifation of Admission Dx: Justifications for Admission: Justification of Admission Dx: Yes RI: Acute STEMI MATIAS MAR Dec 19, 2019 12:23
[2019-12-19 15:00] VITALS: BP 114/68
--- NOTE | 2019-12-19 15:07 | PATHOLOGY ---
[facility] Accession Number: [id number] . 01 Material submitted: . PART A: duodenum - DUODENAL BIOPSY PART B: stomach - ANTRUM BIOPSY PART C: colon - DISTAL DESCENDING COLON MASS. Modifiers: distal, descending PART D: rectum - RECTAL POLYP . 01 Clinical history: . ANEMIA, PAD . 02 Diagnosis: A. Duodenal biopsies: - No significant pathologic abnormalities. . B. Gastric biopsies, antrum: - Congestion and slight chronic inflammation. . C. Colon biopsies, distal descending colon mass: - ADENOCARCINOMA, MODERATELY DIFFERENTIATED. . D. Colorectal biopsies, rectal polyp: - Hyperplastic polyp. . (JPM:prem; 12/19/2019) [facility] 12/19/2019 1501 Local . 02 Comment: Sections of the duodenal biopsy reveal segments of duodenal and small intestine mucosa. Where best oriented, the mucosal villi show no sprue-like changes or significant inflammatory changes. . Sections of the gastric biopsy reveal segments of gastric antral and gastric body mucosa showing congestion and slight chronic inflammation. An immunoperoxidase stain for Helicobacter is negative for Helicobacter organisms. . Sections of the distal descending colon mass biopsy reveal malignant glands which irregularly infiltrate a reactive desmoplastic stroma. The malignant glands focally show a gland within gland cribriform arrangement. There is focal ulceration. The findings are supportive of the diagnosis of an invasive moderately differentiated colorectal adenocarcinoma. . Sections of the rectal biopsy reveal a hyperplastic polyp. There are no adenomatous changes or evidence of malignancy. . The descending colon mass biopsy is also examined by Dr. Pako Klein, who concurs with the diagnosis. . Special stain (B1): Immunoperoxidase stain for Helicobacter . (JPM:prem; 12/19/2019) . 02 Electronically signed: . Ted Carroll MD, Pathologist NPI- [id number] . 01 Gross description: . A. The specimen is received in formalin, labeled "Ari Mejia, duodenal biopsy". Received are two segments of pale masters soft tissue ranging in size from 0.3 to 0.5 cm in maximum dimensions. The specimen is submitted entirely in cassette A1. . B. The specimen is received in formalin, labeled "Ari Mejia, antral biopsy". Received are two segments of pale masters soft tissue ranging in size from 0.2 to 0.4 cm in maximum dimensions. The specimen is submitted entirely in cassette B1. . C. The specimen is received in formalin, labeled "Ari Mejia, distal descending colon mass". Received are six segments of pale masters soft tissue ranging in size from 0.3 to 0.5 cm in maximum dimensions. The specimen is submitted entirely in cassette C1. . D. The specimen is received in formalin, labeled "Ari Mejia, rectal polyp". Received are two segments of pale masters soft tissue measuring 0.3 cm each in maximum dimensions. The specimen is submitted entirely in cassette D1. ([facility]; 12/18/2019) QAC/QAC 12/18/2019 173 Local . 02 Pathologist provided ICD-10: K29.50, C18.6, K62.1 . 02 CPT . 527172, 404414, 297273, [id number], [id number] Specimen Comment: A courtesy copy of this report has been sent to [phone], [phone] Specimen Comment: [id number], Specimen Comment: Report sent to ,DR SANTACRUZ / DR YATES Specimen Comment: A duplicate report has been generated due to demographic updates. Performed at: 01 [facility] [address] [facility] [address], [place] [id number] MD Mushtaq Gregg MD Phone: [phone] Performed at: 02 [facility] [address] [place], [place] [id number] MD Ted Carroll MD Phone: [phone]
[2019-12-19 19:00] VITALS: BP_SYST 105; BP_SYST 120; BP_DIAS 66; BP_DIAS 72
[2019-12-19] MEDS: ATORVASTATIN CALCIUM 40 MG TABLET. PO SCH (20:21)
[2019-12-19 23:00] VITALS: BP 120/63
[2019-12-20] VITALS (9 sets, daily range): BP systolic 109–179; BP diastolic 58–142
[2019-12-20 06:48] LABS: CALCIUM 8.7 mg/dL (8.5-10.1); CREATININE 0.9 mg/dL (0.7-1.3); GFR 85.5; POTASSIUM 4.5 mmol/L (3.5-5.1)
[2019-12-20] MEDS ORDERED: fentaNYL PF VIAL 100 MCG/2 ML VIAL IV PRN ×2 (07:00)
[2019-12-20] MEDS ORDERED: PROCHLORPERAZINE 10 MG/2 ML VIAL. IV PRN (07:00)
[2019-12-20] MEDS ORDERED: LIDOCAINE 1% PF 2 ML VIAL. ID PRN (07:00)
[2019-12-20] MEDS ORDERED: HYDROmorphone 2 MG/ML VIAL IV PRN (07:00)
[2019-12-20] MEDS ORDERED: MORPHINE SULFATE 2 MG/ML VIAL. IV PRN (07:00)
[2019-12-20] MEDS ORDERED: IV RINGERS,LACTATED 1000ML 1,000 ML IV SCH (07:00)
[2019-12-20] MEDS ORDERED: ONDANSETRON PF 4 MG/2 ML VIAL. IV PRN (07:00)
[2019-12-20 07:07] LABS: BASO # 0.1 x10^3/uL (0.0-0.2); BASO % 1 % (0-3); EOS # 0.6 x10^3/uL (0.0-0.7); EOS % 7 % (0-3); HEMATOCRIT 27.4 % (39.0-53.0); HEMOGLOBIN 8.5 g/dL (13.0-17.5); LYMPH # 1.5 x10^3/uL (1.0-4.8); LYMPH % 17 % (24-48); MEAN CORPUSCULAR HEMOGLOBIN 21 pg (25-35); MEAN CORPUSCULAR HGB CONC 31 g/dL (31-37); MEAN CORPUSCULAR VOLUME 67 fL (79-100); MONO % 11 % (0-9); NEUT # 5.9 x10^3/uL (1.8-7.7); NEUT % 65 % (31-73); PLATELET COUNT 442 x10^3/uL (140-400); RED CELL DISTRIBUTION WIDTH 25.5 % (11.5-14.5); WHITE BLOOD COUNT 9.1 x10^3/uL (4.0-11.0)
[2019-12-20] MEDS: METOPROLOL SUCC 24HR ER 50 MG TAB.ER.24H. PO SCH (08:06)
[2019-12-20] MEDS: BUDESONIDE 0.5 MG/2 ML NEBU. NEB SCH ×2 (08:13→19:58)
[2019-12-20] MEDS: ALBUTEROL SULFATE 2.5 MG/3 ML NEBU. NEB SCH ×4 (08:13→19:59)
[2019-12-20] MEDS: MULTIVITAMIN with MINERAL TABLET. PO SCH (09:00)
[2019-12-20] MEDS: LOSARTAN POTASSIUM 50 MG TABLET. PO SCH (09:00)
[2019-12-20] MEDS ORDERED: BUPIVACAINE-EPI 0.5%-1:200000 MPF 30 ML VIAL. ONE (09:10)
[2019-12-20] MEDS ORDERED: fentaNYL PF VIAL 100 MCG/2 ML VIAL ONE (09:25)
[2019-12-20] MEDS ORDERED: ROCURONIUM 100 MG/10 ML VIAL. ONE (09:25)
[2019-12-20] MEDS ORDERED: MIDAZOLAM HCL/PF 2 MG/2 ML VIAL. ONE (09:25)
[2019-12-20] MEDS ORDERED: DESFLURANE > 120 MINUTES IH ONE (09:25)
[2019-12-20] MEDS ORDERED: ONDANSETRON PF 4 MG/2 ML VIAL. ONE (09:26)
[2019-12-20] MEDS ORDERED: PROPOFOL 10 MG/ML (20ML) VIAL. IV ONE (09:26)
[2019-12-20] MEDS ORDERED: LIDOCAINE 2% PF 5 ML VIAL. ONE (09:26)
[2019-12-20] MEDS ORDERED: DEXAMETHASONE SOD PHOS 4 MG/ML VIAL ONE (09:26)
--- NOTE | 2019-12-20 10:33 | NUR ---
SW following. Discussed with RN, pt having surgery today. Likely will not be ready to discharge for a day or two. SW will continue to follow.
--- NOTE | 2019-12-20 10:40 | PDOC ---
PROGRESS NOTES Date of Service: DATE: 12/20/19 TIME: 10:36 Chief Complaint Chief Complaint Claudication History of Present Illness History of Present Illness 64 y/o male w/ h/o CAD s/p stent(s) placement in 10/2019 on Brilinta and ASA and h/o PVD w/ RLE pain here for femoral runoff which was cancelled due to anemia. Denies hematemesis, hematochezia, and melena. Rare heartburn after eating Maltese food, maybe takes Rolaids sometimes. No dysphagia, n/v, abd pain, diarrhea, or constipation. Has lost some weight after he quit drinking soda. No previous EGD or colonoscopy, maybe had an UGI once. No GB, liver, pancreas, or PUD history. Rare NSAIDs. 12/16/2019 No acute events overnight. Patient's hemoglobin remained stable at 8.2. No further bleeding anywhere. Patient's chart, labs, images were reviewed and discussed with RN 12/17/2019 Patient's hemoglobin remained stable. No bloody stools. Patient's chart, labs, images were reviewed and discussed with RN 12/18/2019 Report some pain with ambulation. Denies any nausea, vomiting, fever, or bloody stools. 12/19/2019 Patient evaluated at bedside. Discussed results of his colonoscopy, showing near obstructing colon cancer. Patient states he feels well, denies any abdominal pain. Addressed patient's concerns, and recommended surgical inte rvention. Patient is agreeable to surgery. 12/20/19 Patient to have colectomy today. Remains asymptomatic. Discussed with RN. Vitals Vitals Vital Signs Date Time Temp Pulse Resp B/P (MAP) Pulse Ox O2 Delivery O2 Flow Rate FiO2 12/20/19 09:27 97.8 71 15 121/60 98 Room Air 97.8 Physical Exam Physical Exam General: No acute distress Heart: Regular rate Abdomen: Normal bowel sounds Extremities: No cyanosis General: Alert, Oriented X3, Cooperative Heart: Regular rate, Normal S1, Normal S2 Lungs: Clear Abdomen: Soft, No tenderness, No hepatosplenomegaly Extremities: No clubbing, No cyanosis Skin: No rashes, No breakdown Labs LABS Laboratory Tests Test 12/19/19 11:30 12/20/19 05:59 12/20/19 06:09 Coronavirus (PCR) Not detected (Not Detected) Sodium Level 132 mmol/L (136-145) Potassium Level 4.5 mmol/L (3.5-5.1) Chloride Level 100 mmol/L (98-107) Carbon Dioxide Level 26 mmol/L (21-32) Anion Gap 6 (6-14) Blood Urea Nitrogen 6 mg/dL (8-26) Creatinine 0.9 mg/dL (0.7-1.3) Estimated GFR (Cockcroft-Gault) 85.5 Glucose Level 99 mg/dL (70-99) Calcium Level 8.7 mg/dL (8.5-10.1) White Blood Count 9.1 x10^3/uL (4.0-11.0) Red Blood Count 4.10 x10^6/uL (4.30-5.70) Hemoglobin 8.5 g/dL (13.0-17.5) Hematocrit 27.4 % (39.0-53.0) Mean Corpuscular Volume 67 fL (79-100) Mean Corpuscular Hemoglobin 21 pg (25-35) Mean Corpuscular Hemoglobin Concent 31 g/dL (31-37) Red Cell Distribution Width 25.5 % (11.5-14.5) Platelet Count 442 x10^3/uL (140-400) Neutrophils (%) (Auto) 65 % (31-73) Lymphocytes (%) (Auto) 17 % (24-48) Monocytes (%) (Auto) 11 % (0-9) Eosinophils (%) (Auto) 7 % (0-3) Basophils (%) (Auto) 1 % (0-3) Neutrophils # (Auto) 5.9 x10^3/uL (1.8-7.7) Lymphocytes # (Auto) 1.5 x10^3/uL (1.0-4.8) Monocytes # (Auto) 1.0 x10^3/uL (0.0-1.1) Eosinophils # (Auto) 0.6 x10^3/uL (0.0-0.7) Basophils # (Auto) 0.1 x10^3/uL (0.0-0.2) Review of Systems Review of Systems Denies abdominal pain, denies fever, denies shortness of breath. Assessment and Plan Assessmemt and Plan Diagnosis: A. Duodenal biopsies: - No significant pathologic abnormalities. . B. Gastric biopsies, antrum: - Congestion and slight chronic inflammation. . C. Colon biopsies, distal descending colon mass: - ADENOCARCINOMA, MODERATELY DIFFERENTIATED. . D. Colorectal biopsies, rectal polyp: - Hyperplastic polyp. Plan: Surgical resection of adenocarcinoma today. Comment Review of Relevant I have reviewed the following items christi (where applicable) has been applied. Labs Laboratory Tests Test 12/19/19 04:20 12/19/19 10:20 12/19/19 11:30 12/20/19 05:59 White Blood Count 10.3 x10^3/uL (4.0-11.0) Red Blood Count 4.14 x10^6/uL (4.30-5.70) Hemoglobin 8.7 g/dL (13.0-17.5) Hematocrit 27.7 % (39.0-53.0) Mean Corpuscular Volume 67 fL (79-100) Mean Corpuscular Hemoglobin 21 pg (25-35) Mean Corpuscular Hemoglobin Concent 31 g/dL (31-37) Red Cell Distribution Width 26.1 % (11.5-14.5) Platelet Count 464 x10^3/uL (140-400) Neutrophils (%) (Auto) 66 % (31-73) Lymphocytes (%) (Auto) 17 % (24-48) Monocytes (%) (Auto) 9 % (0-9) Eosinophils (%) (Auto) 6 % (0-3) Basophils (%) (Auto) 1 % (0-3) Neutrophils # (Auto) 6.8 x10^3/uL (1.8-7.7) Lymphocytes # (Auto) 1.8 x10^3/uL (1.0-4.8) Monocytes # (Auto) 1.0 x10^3/uL (0.0-1.1) Eosinophils # (Auto) 0.6 x10^3/uL (0.0-0.7) Basophils # (Auto) 0.1 x10^3/uL (0.0-0.2) Sodium Level 134 mmol/L (136-145) 132 mmol/L (136-145) Potassium Level 3.9 mmol/L (3.5-5.1) 4.5 mmol/L (3.5-5.1) Chloride Level 100 mmol/L (98-107) 100 mmol/L (98-107) Carbon Dioxide Level 23 mmol/L (21-32) 26 mmol/L (21-32) Anion Gap 11 (6-14) 6 (6-14) Blood Urea Nitrogen 7 mg/dL (8-26) 6 mg/dL (8-26) Creatinine 0.8 mg/dL (0.7-1.3) 0.9 mg/dL (0.7-1.3) Estimated GFR (Cockcroft-Gault) 98.0 85.5 Glucose Level 92 mg/dL (70-99) 99 mg/dL (70-99) Calcium Level 8.7 mg/dL (8.5-10.1) 8.7 mg/dL (8.5-10.1) SARS-CoV-2 Antigen (Rapid) Negative (NEGATIVE) Coronavirus (PCR) Not detected (Not Detected) Test 12/20/19 06:09 White Blood Count 9.1 x10^3/uL (4.0-11.0) Red Blood Count 4.10 x10^6/uL (4.30-5.70) Hemoglobin 8.5 g/dL (13.0-17.5) Hematocrit 27.4 % (39.0-53.0) Mean Corpuscular Volume 67 fL (79-100) Mean Corpuscular Hemoglobin 21 pg (25-35) Mean Corpuscular Hemoglobin Concent 31 g/dL (31-37) Red Cell Distribution Width 25.5 % (11.5-14.5) Platelet Count 442 x10^3/uL (140-400) Neutrophils (%) (Auto) 65 % (31-73) Lymphocytes (%) (Auto) 17 % (24-48) Monocytes (%) (Auto) 11 % (0-9) Eosinophils (%) (Auto) 7 % (0-3) Basophils (%) (Auto) 1 % (0-3) Neutrophils # (Auto) 5.9 x10^3/uL (1.8-7.7) Lymphocytes # (Auto) 1.5 x10^3/uL (1.0-4.8) Monocytes # (Auto) 1.0 x10^3/uL (0.0-1.1) Eosinophils # (Auto) 0.6 x10^3/uL (0.0-0.7) Basophils # (Auto) 0.1 x10^3/uL (0.0-0.2) Laboratory Tests Test 12/19/19 11:30 12/20/19 05:59 12/20/19 06:09 Coronavirus (PCR) Not detected (Not Detected) Sodium Level 132 mmol/L (136-145) Potassium Level 4.5 mmol/L (3.5-5.1) Chloride Level 100 mmol/L (98-107) Carbon Dioxide Level 26 mmol/L (21-32) Anion Gap 6 (6-14) Blood Urea Nitrogen 6 mg/dL (8-26) Creatinine 0.9 mg/dL (0.7-1.3) Estimated GFR (Cockcroft-Gault) 85.5 Glucose Level 99 mg/dL (70-99) Calcium Level 8.7 mg/dL (8.5-10.1) White Blood Count 9.1 x10^3/uL (4.0-11.0) Red Blood Count 4.10 x10^6/uL (4.30-5.70) Hemoglobin 8.5 g/dL (13.0-17.5) Hematocrit 27.4 % (39.0-53.0) Mean Corpuscular Volume 67 fL (79-100) Mean Corpuscular Hemoglobin 21 pg (25-35) Mean Corpuscular Hemoglobin Concent 31 g/dL (31-37) Red Cell Distribution Width 25.5 % (11.5-14.5) Platelet Count 442 x10^3/uL (140-400) Neutrophils (%) (Auto) 65 % (31-73) Lymphocytes (%) (Auto) 17 % (24-48) Monocytes (%) (Auto) 11 % (0-9) Eosinophils (%) (Auto) 7 % (0-3) Basophils (%) (Auto) 1 % (0-3) Neutrophils # (Auto) 5.9 x10^3/uL (1.8-7.7) Lymphocytes # (Auto) 1.5 x10^3/uL (1.0-4.8) Monocytes # (Auto) 1.0 x10^3/uL (0.0-1.1) Eosinophils # (Auto) 0.6 x10^3/uL (0.0-0.7) Basophils # (Auto) 0.1 x10^3/uL (0.0-0.2) Medications Current Medications Iodixanol (Visipaque 320) 100 ml STK-MED ONCE .ROUTE ; Start 12/15/19 at 07:47; Stop 12/15/19 at 07:47; Status DC Lidocaine HCl (Lidocaine 1% 20ml Vial) 20 ml STK-MED ONCE .ROUTE ; Start 12/15/19 at 07:47; Stop 12/15/19 at 07:47; Status DC Heparin Sodium/ Sodium Chloride 0 ml @ As Directed STK-MED ONCE .ROUTE ; Start 12/15/19 at 07:47; Stop 12/15/19 at 07:48; Status DC Sodium Chloride 1,000 ml @ 60 mls/hr [id number] IV Last administered on 12/15/19at 16:04; Start 12/15/19 at 08:49; Stop 12/16/19 at 08:48; Status DC Clopidogrel Bisulfate (Plavix) 75 mg [id number] PO Last administered on 12/16/19at 08:17; Start 12/16/19 at 08:00; Stop 12/17/19 at 07:59; Status DC Pantoprazole Sodium (Protonix) 40 mg DAILYAC PO Last administered on 12/16/19at 08:19; Start 12/16/19 at 07:30; Stop 12/17/19 at 07:29; Status DC Atorvastatin Calcium (Lipitor) 40 mg QHS PO Last administered on 12/17/19at 21:28; Start 12/15/19 at 21:00; Stop 12/18/19 at 13:55; Status DC Losartan Potassium (Cozaar) 50 mg DAILY PO Last administered on 12/19/19at 10:10; Start 12/16/19 at 09:00 Metoprolol Succinate (Toprol Xl) 50 mg DAILY PO Last administered on 12/18/19at 09:08; Start 12/16/19 at 09:00; Stop 12/18/19 at 13:54; Status DC Nitroglycerin (Nitrostat) 0.4 mg PRN Q5MIN PRN SL CHEST PAIN; Start 12/15/19 at 16:15 Non-Formulary Medication (Fluticasone/ Salmeterol (Advair 100-50 Diskus)) 1 puff BID IH ; Start 12/15/19 at 21:00; Status UNV Multivitamins (Thera M Plus) 1 tab DAILY PO Last administered on 12/19/19at 10:10; Start 12/16/19 at 09:00 Albuterol Sulfate (Ventolin Neb Soln) 2.5 mg RTQID NEB Last administered on 12/20/19at 08:13; Start 12/15/19 at 20:00 Budesonide (Pulmicort) 0.5 mg RTBID NEB Last administered on 12/20/19at 08:13; Start 12/15/19 at 20:00 Cyclobenzaprine HCl (Flexeril) 5 mg PRN QHS PRN PO MUSCLE SPASMS; Start 12/15/19 at 16:30 Furosemide (Lasix) 20 mg 1X ONCE IVP Last administered on 12/15/19at 18:38; Start 12/15/19 at 17:30; Stop 12/15/19 at 17:31; Status DC Magnesium Citrate (Citroma) 296 ml 1X ONCE PO Last administered on 12/17/19at 09:45; Start 12/17/19 at 09:00; Stop 12/17/19 at 09:01; Status DC Polyethylene Glycol (miraLAX Powder BULK BOTTLE) 238 gm 1X ONCE PO Last admin istered on 12/17/19at 15:13; Start 12/17/19 at 15:00; Stop 12/17/19 at 15:01; Status DC Bisacodyl (Dulcolax Tab) 20 mg 1X ONCE PO Last administered on 12/17/19at 14:14; Start 12/17/19 at 14:00; Stop 12/17/19 at 14:01; Status DC Ringer's Solution 1,000 ml @ 75 mls/hr [id number] IV Last administered on 12/18/19at 12:19; Start 12/18/19 at 12:30; Stop 12/18/19 at 20:00; Status DC Propofol (Diprivan) 200 mg STK-MED ONCE IV ; Start 12/18/19 at 12:31; Stop 12/18/19 at 12:31; Status DC Lidocaine HCl (Lidocaine Pf 2% Vial) 5 ml STK-MED ONCE .ROUTE ; Start 12/18/19 at 12:31; Stop 12/18/19 at 12:31; Status DC Ephedrine Sulfate (ePHEDrine PF IN SALINE SYRINGE) 50 mg STK-MED ONCE IV ; Start 12/18/19 at 12:33; Stop 12/18/19 at 12:33; Status DC Ephedrine Sulfate (Akovaz) 50 mg STK-MED ONCE .ROUTE ; Start 12/18/19 at 12:34; Stop 12/18/19 at 12:34; Status DC Metoprolol Succinate (Toprol Xl) 50 mg DAILY PO Last administered on 12/20/19at 08:06; Start 12/19/19 at 09:00 Atorvastatin Calcium (Lipitor) 40 mg QHS PO Last administered on 12/19/19at 20:21; Start 12/18/19 at 21:00 Iohexol (Omnipaque 300 Mg/ml) 75 ml 1X ONCE IV Last administered on 12/18/19at 16:02; Start 12/18/19 at 15:45; Stop 12/18/19 at 15:46; Status DC Iohexol (Omnipaque 240 Mg/ml) 50 ml 1X ONCE PO Last administered on 12/18/19at 16:02; Start 12/18/19 at 15:45; Stop 12/18/19 at 15:46; Status DC Info (CONTRAST GIVEN -- Rx MONITORING) 1 each PRN DAILY PRN MC SEE COMMENTS; Start 12/18/19 at 15:45; Stop 12/20/19 at 15:44 Ondansetron HCl (Zofran) 4 mg PRN Q6HRS PRN IV NAUSEA/VOMITING; Start 12/20/19 at 07:00; Stop 12/21/19 at 06:59 Fentanyl Citrate (Fentanyl 2ml Vial) 25 mcg PRN Q5MIN PRN IV MILD PAIN 1-3; Start 12/20/19 at 07:00; Stop 12/21/19 at 06:59 Fentanyl Citrate (Fentanyl 2ml Vial) 50 mcg PRN Q5MIN PRN IV MODERATE TO SEVERE PAIN; Start 12/20/19 at 07:00; Stop 12/21/19 at 06:59 Morphine Sulfate (Morphine Sulfate) 1 mg PRN Q10MIN PRN IV SEVERE PAIN 7-10; Start 12/20/19 at 07:00; Stop 12/21/19 at 06:59 Ringer's Solution 1,000 ml @ 30 mls/hr Q24H IV ; Start 12/20/19 at 07:00; Stop 12/20/19 at 18:59 Lidocaine HCl (Xylocaine-Mpf 1% 2ml Vial) 2 ml PRN 1X PRN ID PRIOR TO IV START; Start 12/20/19 at 07:00; Stop 12/21/19 at 06:59 Hydromorphone HCl (Dilaudid) 0.5 mg PRN Q10MIN PRN IV SEV PAIN, Second choice; Start 12/20/19 at 07:00; Stop 12/21/19 at 06:59 Prochlorperazine Edisylate (Compazine) 5 mg PACU PRN PRN IV NAUSEA, MRX1; Start 12/20/19 at 07:00; Stop 12/21/19 at 06:59 Cefazolin Sodium/ Dextrose 50 ml @ 100 mls/hr 1X PREOP PRN IV PRIOR TO PROCEDURE; Start 12/20/19 at 06:00; Stop 12/20/19 at 18:00 Metronidazole 100 ml @ 100 mls/hr 1X PREOP PRN IV PRIOR TO PROCEDURE; Start 12/20/19 at 06:00; Stop 12/20/19 at 18:00 Bupivacaine HCl/ Epinephrine Bitart (Sensorcain-Epi 0.5%-1:211722 Mpf) 30 ml STK-MED ONCE .ROUTE ; Start 12/20/19 at 09:10; Stop 12/20/19 at 09:10; Status DC Rocuronium [place] (Zemuron) 100 mg STK-MED ONCE .ROUTE ; Start 12/20/19 at 09:25; Stop 12/20/19 at 09:25; Status DC Fentanyl Citrate (Fentanyl 2ml Vial) 100 mcg STK-MED ONCE .ROUTE ; Start 12/20/19 at 09:25; Stop 12/20/19 at 09:25; Status DC Midazolam HCl (Versed) 2 mg STK-MED ONCE .ROUTE ; Start 12/20/19 at 09:25; Stop 12/20/19 at 09:26; Status DC Desflurane (Suprane) 90 ml STK-MED ONCE IH ; Start 12/20/19 at 09:25; Stop 12/20/19 at 09:26; Status DC Propofol (Diprivan) 200 mg STK-MED ONCE IV ; Start 12/20/19 at 09:26; Stop 12/20/19 at 09:26; Status DC Dexamethasone Sodium Phosphate (Decadron) 4 mg STK-MED ONCE .ROUTE ; Start 12/20/19 at 09:26; Stop 12/20/19 at 09:26; Status DC Ondansetron HCl (Zofran) 4 mg STK-MED ONCE .ROUTE ; Start 12/20/19 at 09:26; Stop 12/20/19 at 09:26; Status DC Lidocaine HCl (Lidocaine Pf 2% Vial) 5 ml STK-MED ONCE .ROUTE ; Start 12/20/19 at 09:26; Stop 12/20/19 at :; Status DC Active Scripts Active Metoprolol Succinate ( Xl ) (Metoprolol Succinate) 25 Mg Tab.er.24h 50 Mg PO DAILY 30 Days Nitrostat (Nitroglycerin) 0.4 Mg Tab.subl 0.4 Mg SL PRN Q5MIN PRN 30 Days Atorvastatin Calcium 20 Mg Tablet 40 Mg PO QHS 30 Days Reported Amlodipine Besylate 10 Mg Tablet 1 Tab PO DAILY Daily Vitamin (Multivitamin) 1 Each Tablet 1 Each PO Advair 100-50 Diskus (Fluticasone/Salmeterol) 1 Each Disk.w.dev 1 Puff IH BID Aspirin 81 Mg Tab.chew 1 Tab PO DAILY Losartan Potassium 50 Mg Tablet 1 Tab PO DAILY Vitals/I & O Vital Sign - Last 24 Hours 12/19/19 12/19/19 12/19/19 12/19/19 11:00 15:00 19:00 19:28 Temp 97.7 98.4 98.0 97.7 98.4 98.0 Pulse 80 84 82 Resp 17 17 20 B/P (MAP) 121/53 (75) 114/68 (83) 120/66 (84) Pulse Ox 98 95 96 97 O2 Delivery Room Air Room Air Room Air Room Air 12/19/19 12/19/19 12/20/19 12/20/19 19:30 23:00 03:00 07:00 Temp 97.7 98.5 98.2 97.7 98.5 98.2 Pulse 86 86 79 Resp 20 20 17 B/P (MAP) 120/63 (82) 117/66 (83) 118/64 (82) Pulse Ox 95 92 96 O2 Delivery Room Air Room Air Room Air Room Air 12/20/19 12/20/19 12/20/19 12/20/19 08:06 08:15 08:24 09:27 Temp 97.8 97.8 Pulse 86 71 Resp 15 B/P (MAP) 117/66 121/60 Pulse Ox 96 97 98 O2 Delivery Room Air Room Air Room Air Intake and Output 12/19/19 12/19/19 12/20/19 15:00 23:00 07:00 Intake Total 0 ml 300 ml Output Total 0 ml Balance 0 ml 300 ml Justicifation of Admission Dx: Justifications for Admission: Justification of Admission Dx: Yes NM: Acute STEMI SOLIS BRUNER MD Dec 20, 2019 10:40
--- NOTE | 2019-12-20 10:58 | PDOC ---
Date of Service: DATE: 12/20/19 TIME: 10:56 Objective: Vital Signs: Vital Signs Date Time Temp Pulse Resp B/P (MAP) Pulse Ox O2 Delivery O2 Flow Rate FiO2 12/20/19 09:27 97.8 71 15 121/60 98 Room Air 97.8 Labs: Laboratory Tests Test 12/19/19 11:30 12/20/19 05:59 12/20/19 06:09 Coronavirus (PCR) Not detected Sodium Level 132 mmol/L Potassium Level 4.5 mmol/L Chloride Level 100 mmol/L Carbon Dioxide Level 26 mmol/L Anion Gap 6 Blood Urea Nitrogen 6 mg/dL Creatinine 0.9 mg/dL Estimated GFR (Cockcroft-Gault) 85.5 Glucose Level 99 mg/dL Calcium Level 8.7 mg/dL White Blood Count 9.1 x10^3/uL Red Blood Count 4.10 x10^6/uL Hemoglobin 8.5 g/dL Hematocrit 27.4 % Mean Corpuscular Volume 67 fL Mean Corpuscular Hemoglobin 21 pg Mean Corpuscular Hemoglobin Concent 31 g/dL Red Cell Distribution Width 25.5 % Platelet Count 442 x10^3/uL Neutrophils (%) (Auto) 65 % Lymphocytes (%) (Auto) 17 % Monocytes (%) (Auto) 11 % Eosinophils (%) (Auto) 7 % Basophils (%) (Auto) 1 % Neutrophils # (Auto) 5.9 x10^3/uL Lymphocytes # (Auto) 1.5 x10^3/uL Monocytes # (Auto) 1.0 x10^3/uL Eosinophils # (Auto) 0.6 x10^3/uL Basophils # (Auto) 0.1 x10^3/uL Material submitted: . PART A: duodenum - DUODENAL BIOPSY PART B: stomach - ANTRUM BIOPSY PART C: colon - DISTAL DESCENDING COLON MASS. Modifiers: distal, descending PART D: rectum - RECTAL POLYP Clinical history: . ANEMIA, PAD Diagnosis: A. Duodenal biopsies: - No significant pathologic abnormalities. B. Gastric biopsies, antrum: - Congestion and slight chronic inflammation. C. Colon biopsies, distal descending colon mass: - ADENOCARCINOMA, MODERATELY DIFFERENTIATED. D. Colorectal biopsies, rectal polyp: - Hyperplastic polyp. Comment: Sections of the duodenal biopsy reveal segments of duodenal and small intestine mucosa. Where best oriented, the mucosal villi show no sprue-like changes or significant inflammatory changes. Sections of the gastric biopsy reveal segments of gastric antral and gastric body mucosa showing congestion and slight chronic inflammation. An immunoperoxidase stain for Helicobacter is negative for Helicobacter organisms. Sections of the distal descending colon mass biopsy reveal malignant glands which irregularly infiltrate a reactive desmoplastic stroma. The malignant glands focally show a gland within gland cribriform arrangement. There is focal ulceration. The findings are supportive of the diagnosis of an invasive moderately differentiated colorectal adenocarcinoma. Sections of the rectal biopsy reveal a hyperplastic polyp. There are no adenomatous changes or evidence of malignancy. PE: out of room A/P: PAULINA Colon cancer CAD, PVD -- In OR, will follow. Justicifation of Admission Dx: Justifications for Admission: Justification of Admission Dx: Yes MN: Acute STEMI MATIAS MAR Dec 20, 2019 10:58
[2019-12-20] MEDS ORDERED: PHENYLEPHRINE in 0.9% NACL PF 1 MG/10 ML SYRINGE. IV ONE ×2 (11:48→15:03)
--- NOTE | 2019-12-20 12:04 | PDOC ---
CARDIO Progress Notes Date and Time Date of Service 12/20/19 Time of Evaluation 1210 Vitals Vitals Vital Signs Date Time Temp Pulse Resp B/P (MAP) Pulse Ox O2 Delivery O2 Flow Rate FiO2 12/20/19 09:27 97.8 71 15 121/60 98 Room Air 97.8 Weight Weight [ ] Input and Output Intake and Output Intake and Output 12/20/19 07:00 Intake Total 300 ml Output Total 0 ml Balance 300 ml Intake Oral 300 ml Output Urine Total 0 ml # Voids 4 Laboratory Labs Laboratory Tests Test 12/20/19 05:59 12/20/19 06:09 Sodium Level 132 mmol/L (136-145) Potassium Level 4.5 mmol/L (3.5-5.1) Chloride Level 100 mmol/L (98-107) Carbon Dioxide Level 26 mmol/L (21-32) Anion Gap 6 (6-14) Blood Urea Nitrogen 6 mg/dL (8-26) Creatinine 0.9 mg/dL (0.7-1.3) Estimated GFR (Cockcroft-Gault) 85.5 Glucose Level 99 mg/dL (70-99) Calcium Level 8.7 mg/dL (8.5-10.1) White Blood Count 9.1 x10^3/uL (4.0-11.0) Red Blood Count 4.10 x10^6/uL (4.30-5.70) Hemoglobin 8.5 g/dL (13.0-17.5) Hematocrit 27.4 % (39.0-53.0) Mean Corpuscular Volume 67 fL (79-100) Mean Corpuscular Hemoglobin 21 pg (25-35) Mean Corpuscular Hemoglobin Concent 31 g/dL (31-37) Red Cell Distribution Width 25.5 % (11.5-14.5) Platelet Count 442 x10^3/uL (140-400) Neutrophils (%) (Auto) 65 % (31-73) Lymphocytes (%) (Auto) 17 % (24-48) Monocytes (%) (Auto) 11 % (0-9) Eosinophils (%) (Auto) 7 % (0-3) Basophils (%) (Auto) 1 % (0-3) Neutrophils # (Auto) 5.9 x10^3/uL (1.8-7.7) Lymphocytes # (Auto) 1.5 x10^3/uL (1.0-4.8) Monocytes # (Auto) 1.0 x10^3/uL (0.0-1.1) Eosinophils # (Auto) 0.6 x10^3/uL (0.0-0.7) Basophils # (Auto) 0.1 x10^3/uL (0.0-0.2) Assessment Assessment 1. Anemia, iron deficient; s/p 23 units of PRBCs. EGD/colonoscopy complete. Near-obstructing tumor noted in the sigmoid/descending colon that was unpassable- suspecting CA. In surgery now. 2. CAD s/p PCI/FALGUNI to LAD and RCA (10/29/19). stable and chest pain free. 3. Chromic systolic heart failure, ischemic CMP. LVEF 35%. Clinically well compensated. 4. HTN: controlled 5. HLP: statins 6. PAD with claudication Recommendations Currently in surgery. Will follow up with tomorrow Will discuss resumption of Plavix with surgical team. Justicifation of Admission Dx: Justifications for Admission: Justification of Admission Dx: Yes AK: Acute STEMI ARIANE CURTIS APRN Dec 20, 2019 12:04
[2019-12-20] MEDS ORDERED: HYDROmorphone 2 MG/ML VIAL ONE (13:22)
[2019-12-20] MEDS ORDERED: NEOSTIGMINE METHYLSULFATE 5 MG/5 ML SYRINGE. ONE (13:23)
[2019-12-20] MEDS ORDERED: GLYCOPYRROLATE 1 MG/5 ML VIAL. ONE (13:23)
[2019-12-20] MEDS ORDERED: ROCURONIUM 50 MG/5 ML VIAL. ONE (14:15)
--- NOTE | 2019-12-20 15:14 | PDOC4 ---
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 The plan is to proceed to the operating room for resection of the tumor. The details and risks of surgery were discussed. The risks include bleeding, infection, visceral injury, hernia formation, small bowel obstruction, anastomotic leak, pain, anesthetic risk, potential need for additional surgery procedure. He understands and would like to proceed. Description: The patient was taken to the operating room and placed supine on the operating table. General anesthesia was performed. The abdomen was prepped with ChloraPrep and draped in a standard surgical manner. A small infraumbilical incision was made the skin through which a Veress needle was inserted and pneumoperitoneum was created. A visualized 5 mm trocar was inserted and the laparoscope was introduced. In the patient's right upper quadrant a 5 mm trocar was inserted. In the left abdomen another 5 mm trocar was inserted. Inspection showed the tattoo located in the splenic flexure of the colon as expected based on his preoperative scanning. The tumor appeared quite large with some adherent omentum. We began mobilizing some of the splenic flexure attachments using the harmonic scalpel. The descending colon was then fully mobilized by dividing all the lateral peritoneal attachments. With the colon more mobile there was greater concern for locally advanced process of the tumor. There appeared to be a segment of small bowel that may be involved with the tumor. We elected to convert to an open approach. An upper vertical midline incision was made in the skin with a scalpel. Cautery dissection was carried down to the fascia. The fascia and peritoneum were divided. The Omni retractor was used for the remainder of the case to facilitate exposure. Some remaining attachments of the splenic flexure were lysed. It became apparent that the tumor appeared to invade nearby segment of proximal jejunum just distal to the ligament of Treitz. The transverse colon and descending colon were divided using a BERTHA-75 stapling device. The mesentery of the involved colon segment was then dissected. Blood vessels were ligated with 2-0 Vicryl and divided. The LigaSure device assisted with mesenteric dissection. We proceeded with en bloc resection of the involved small bowel segment as well. The small bowel was divided proximal and distal to the tumor using a [id number]-75 stapling device. Any remaining mesenteric vessels were ligated with 2-0 Vicryl and divided. The specimen was then sent to pathology for evaluation. Gross pathologic evaluation confirmed a large tumor with local invasion into the small bowel segment. There was also concern of possible invasion into the mesentery. Two separate anastomoses were required, one for the small bowel and another for the colon. Both were done with a similar technique using a 2 layer handsewn end-to-end anastomosis. The posterior seromuscular layer was developed first with interrupted 3-0 Vicryl. The staple lines were then excised. The next layer was constructed with 3-0 PDS in a running locked fashion. The anterior seromuscular layer was then completed with 3-0 Vicryl. Both anastomoses seemed widely patent and viable. The abdominal cavity was then irrigated with sterile saline which was suctioned. No other abnormalities or areas of tumor were identified. The liver showed no evidence of metastasis. The fascia was then closed with a running 1 PDS suture. 1/4 inch [place] drain was left in subcutaneous tissue was exited inferiorly. The subcutaneous tissues were then closed with 3-0 Vicryl and skin approximated with 4-0 Monocryl. A sterile dressing was then applied. The patient tolerated the procedure well and sent to the recovery room in stable condition. At the end of the case all counts were correct. TANGELA MORTENSEN MD Dec 20, 2019 15:14
[2019-12-20] MEDS ORDERED: NALOXONE 0.4 MG/ML VIAL. IV PRN (15:15)
[2019-12-20] MEDS ORDERED: ALBUMIN HUMAN 5% 500 ML IV ONE ×2 (15:15→16:00)
--- NOTE | 2019-12-20 16:00 | NUR ---
pt returned from PACU. VSS. Pt 96% on 3L. Albumin had been spiked by recovery but not running as patient BP was WNL. LR infusing. NG tube hooked to LIS. Dressing checked and no visible drainage. pt denying pain at this time.
[2019-12-20] MEDS: HYDROmorphone 12mg/30ml PCA 30 ML IV PRN (18:43)
[2019-12-20] MEDS: IV NORMAL SALINE 1000ML BAG 1,000 ML IV SCH (18:44)
[2019-12-20] MEDS: ENOXAPARIN 40 MG/0.4 ML SYRINGE. SQ SCH (21:00)
[2019-12-20] MEDS: ATORVASTATIN CALCIUM 40 MG TABLET. PO SCH (21:00)
[2019-12-21] VITALS (10 sets, daily range): BP systolic 96–129; BP diastolic 49–66
[2019-12-21 06:41] LABS: BASO % 0 % (0-3); EOS % 0 % (0-3); HEMATOCRIT 23.1 % (39.0-53.0); LYMPH # 1.5 x10^3/uL (1.0-4.8); LYMPH % 11 % (24-48); MEAN CORPUSCULAR HEMOGLOBIN 20 pg (25-35); MEAN CORPUSCULAR HGB CONC 30 g/dL (31-37); MEAN CORPUSCULAR VOLUME 67 fL (79-100); MONO % 7 % (0-9); NEUT # 11.2 x10^3/uL (1.8-7.7); NEUT % 81 % (31-73); PLATELET COUNT 363 x10^3/uL (140-400); RED BLOOD COUNT 3.43 x10^6/uL (4.30-5.70); RED CELL DISTRIBUTION WIDTH 25.6 % (11.5-14.5); WHITE BLOOD COUNT 13.8 x10^3/uL (4.0-11.0)
[2019-12-21 06:48] LABS: CALCIUM 8.2 mg/dL (8.5-10.1); CREATININE 0.9 mg/dL (0.7-1.3); GFR 85.5; POTASSIUM 4.4 mmol/L (3.5-5.1)
[2019-12-21 07:12] LABS: HEMOGLOBIN 6.9 g/dL (13.0-17.5)
--- NOTE | 2019-12-21 07:38 | NUR ---
Pt instructed on the use of the IS, nidhi well
[2019-12-21] MEDS: ALBUTEROL SULFATE 2.5 MG/3 ML NEBU. NEB SCH ×4 (08:25→20:34)
[2019-12-21] MEDS: BUDESONIDE 0.5 MG/2 ML NEBU. NEB SCH ×2 (08:25→20:34)
[2019-12-21] MEDS: MULTIVITAMIN with MINERAL TABLET. PO SCH (09:00)
[2019-12-21] MEDS: METOPROLOL SUCC 24HR ER 50 MG TAB.ER.24H. PO SCH (09:00)
[2019-12-21] MEDS: LOSARTAN POTASSIUM 50 MG TABLET. PO SCH (09:00)
[2019-12-21] MEDS ORDERED: PHENOL ORAL SPRAY 177ML BOTTLE. PO PRN (09:00)
--- NOTE | 2019-12-21 09:05 | PDOC ---
LONI HUFF [employer] CHIEF CLERK 12/21/19 0904: SURGICAL PROGRESS NOTE DATE: 12/21/19 TIME: 09:00 Subjective resting pain managed very thirsty Vital Signs Vital Signs Date Time Temp Pulse Resp B/P (MAP) Pulse Ox O2 Delivery O2 Flow Rate FiO2 12/21/19 07:00 97.5 89 17 96/55 (69) 90 97.5 12/21/19 03:00 Room Air 12/20/19 20:10 3.0 I&O Intake and Output 12/21/19 07:00 Intake Total 2050 ml Output Total 530 ml Balance 1520 ml Intake Oral 50 ml IV Total 2000 ml Output Urine Total 420 ml Gastric Drainage Total 10 ml Estimated Blood Loss 100 ml General: Alert, Oriented X3, Cooperative HEENT: Other (NG in place ) Abdomen: Soft, Other (ND, dressing dry) Labs Laboratory Tests Test 12/19/19 10:20 12/19/19 11:30 12/20/19 05:59 12/20/19 06:09 SARS-CoV-2 Antigen (Rapid) Negative (NEGATIVE) Coronavirus (PCR) Not detected (Not Detected) Sodium Level 132 mmol/L (136-145) Potassium Level 4.5 mmol/L (3.5-5.1) Chloride Level 100 mmol/L (98-107) Carbon Dioxide Level 26 mmol/L (21-32) Anion Gap 6 (6-14) Blood Urea Nitrogen 6 mg/dL (8-26) Creatinine 0.9 mg/dL (0.7-1.3) Estimated GFR (Cockcroft-Gault) 85.5 Glucose Level 99 mg/dL (70-99) Calcium Level 8.7 mg/dL (8.5-10.1) White Blood Count 9.1 x10^3/uL (4.0-11.0) Red Blood Count 4.10 x10^6/uL (4.30-5.70) Hemoglobin 8.5 g/dL (13.0-17.5) Hematocrit 27.4 % (39.0-53.0) Mean Corpuscular Volume 67 fL (79-100) Mean Corpuscular Hemoglobin 21 pg (25-35) Mean Corpuscular Hemoglobin Concent 31 g/dL (31-37) Red Cell Distribution Width 25.5 % (11.5-14.5) Platelet Count 442 x10^3/uL (140-400) Neutrophils (%) (Auto) 65 % (31-73) Lymphocytes (%) (Auto) 17 % (24-48) Monocytes (%) (Auto) 11 % (0-9) Eosinophils (%) (Auto) 7 % (0-3) Basophils (%) (Auto) 1 % (0-3) Neutrophils # (Auto) 5.9 x10^3/uL (1.8-7.7) Lymphocytes # (Auto) 1.5 x10^3/uL (1.0-4.8) Monocytes # (Auto) 1.0 x10^3/uL (0.0-1.1) Eosinophils # (Auto) 0.6 x10^3/uL (0.0-0.7) Basophils # (Auto) 0.1 x10^3/uL (0.0-0.2) Test 12/21/19 05:50 White Blood Count 13.8 x10^3/uL (4.0-11.0) Red Blood Count 3.43 x10^6/uL (4.30-5.70) Hemoglobin 6.9 g/dL (13.0-17.5) Hematocrit 23.1 % (39.0-53.0) Mean Corpuscular Volume 67 fL (79-100) Mean Corpuscular Hemoglobin 20 pg (25-35) Mean Corpuscular Hemoglobin Concent 30 g/dL (31-37) Red Cell Distribution Width 25.6 % (11.5-14.5) Platelet Count 363 x10^3/uL (140-400) Neutrophils (%) (Auto) 81 % (31-73) Lymphocytes (%) (Auto) 11 % (24-48) Monocytes (%) (Auto) 7 % (0-9) Eosinophils (%) (Auto) 0 % (0-3) Basophils (%) (Auto) 0 % (0-3) Neutrophils # (Auto) 11.2 x10^3/uL (1.8-7.7) Lymphocytes # (Auto) 1.5 x10^3/uL (1.0-4.8) Monocytes # (Auto) 1.0 x10^3/uL (0.0-1.1) Eosinophils # (Auto) 0.0 x10^3/uL (0.0-0.7) Basophils # (Auto) 0.0 x10^3/uL (0.0-0.2) Sodium Level 134 mmol/L (136-145) Potassium Level 4.4 mmol/L (3.5-5.1) Chloride Level 102 mmol/L (98-107) Carbon Dioxide Level 26 mmol/L (21-32) Anion Gap 6 (6-14) Blood Urea Nitrogen 14 mg/dL (8-26) Creatinine 0.9 mg/dL (0.7-1.3) Estimated GFR (Cockcroft-Gault) 85.5 Glucose Level 117 mg/dL (70-99) Calcium Level 8.2 mg/dL (8.5-10.1) Laboratory Tests Test 12/21/19 05:50 White Blood Count 13.8 x10^3/uL (4.0-11.0) Red Blood Count 3.43 x10^6/uL (4.30-5.70) Hemoglobin 6.9 g/dL (13.0-17.5) Hematocrit 23.1 % (39.0-53.0) Mean Corpuscular Volume 67 fL (79-100) Mean Corpuscular Hemoglobin 20 pg (25-35) Mean Corpuscular Hemoglobin Concent 30 g/dL (31-37) Red Cell Distribution Width 25.6 % (11.5-14.5) Platelet Count 363 x10^3/uL (140-400) Neutrophils (%) (Auto) 81 % (31-73) Lymphocytes (%) (Auto) 11 % (24-48) Monocytes (%) (Auto) 7 % (0-9) Eosinophils (%) (Auto) 0 % (0-3) Basophils (%) (Auto) 0 % (0-3) Neutrophils # (Auto) 11.2 x10^3/uL (1.8-7.7) Lymphocytes # (Auto) 1.5 x10^3/uL (1.0-4.8) Monocytes # (Auto) 1.0 x10^3/uL (0.0-1.1) Eosinophils # (Auto) 0.0 x10^3/uL (0.0-0.7) Basophils # (Auto) 0.0 x10^3/uL (0.0-0.2) Sodium Level 134 mmol/L (136-145) Potassium Level 4.4 mmol/L (3.5-5.1) Chloride Level 102 mmol/L (98-107) Carbon Dioxide Level 26 mmol/L (21-32) Anion Gap 6 (6-14) Blood Urea Nitrogen 14 mg/dL (8-26) Creatinine 0.9 mg/dL (0.7-1.3) Estimated GFR (Cockcroft-Gault) 85.5 Glucose Level 117 mg/dL (70-99) Calcium Level 8.2 mg/dL (8.5-10.1) Assessment/Plan s/p resection await bowel function begin ambulating continue NG Justicifation of Admission Dx: Justifications for Admission: Justification of Admission Dx: Yes [place]: Acute STEMI TULIO SHAIKH MD 12/21/19 0935: SURGICAL PROGRESS NOTE Assessment/Plan Agree with Mega assessment and plan LONI HUFF APRN Dec 21, 2019 09:04 TULIO SHAIKH MD Dec 21, 2019 09:35
--- NOTE | 2019-12-21 09:48 | PDOC ---
[employer] PROGRESS NOTE Date of Service DOS: DATE: 12/21/19 TIME: 09:48 Chief Complaint Chief Complaint Claudication Adenocarcinoma of colon - s/p resection on 12/20/2019 CAD, stable Acute blood loss anemia History of Present Illness History of Present Illness Mr Mejia is a 64 y/o male w/ h/o CAD s/p stent(s) placement in 10/2019 on Brilinta and ASA and h/o PVD w/ RLE pain here for femoral runoff which was cancelled due to anemia. Denies hematemesis, hematochezia, and melena. Rare heartburn after eating [place] food, maybe takes Rolaids sometimes. No dysphagia, n/v, abd pain, diarrhea, or constipation. Has lost some weight after he quit drinking soda. No previous EGD or colonoscopy, maybe had an UGI once. No GB, liver, pancreas, or PUD history. Rare NSAIDs. 12/14: Hb 6.2 s/p 2u PRBC. 12/15: Patient's hemoglobin remained stable at 8.2. No further bleeding anywhere. 12/16:Patient's hemoglobin remained stable. No bloody stools. 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 12/18: Patient evaluated at bedside. Discussed results of his colonoscopy, showing near obstructing colon cancer. 12/19: To colectomy today. WBC 13.8, Hb 6.9 today. He has had no bowel movement no vomiting. He is asking for water or ice chips. Pain is well controlled on his LEGAL AIDE. Wants to get up. No chest pain shortness of breath or lower extremity pain. Vitals/I&O Vitals/I&O: Vital Signs Date Time Temp Pulse Resp B/P (MAP) Pulse Ox O2 Delivery O2 Flow Rate FiO2 12/21/19 07:00 97.5 89 17 96/55 (69) 90 97.5 12/21/19 03:00 Room Air 12/20/19 20:10 3.0 I & O 12/20/19 12/20/19 12/21/19 15:00 23:00 07:00 Intake Total 2050 ml 0 ml Output Total 380 ml 150 ml Balance 1670 ml -150 ml Physical Exam Physical Exam: General: No acute distress Heart: Regular rate Abdomen: Normal bowel sounds Extremities: No cyanosis General: Alert, Oriented X3, Cooperative Heart: Regular rate, Normal S1, Normal S2 Lungs: Clear Abdomen: Soft, Other (ND, dressing dry) Extremities: No clubbing, No cyanosis Skin: No rashes, No breakdown Labs Labs: Laboratory Tests Test 12/21/19 05:50 White Blood Count 13.8 x10^3/uL (4.0-11.0) Red Blood Count 3.43 x10^6/uL (4.30-5.70) Hemoglobin 6.9 g/dL (13.0-17.5) Hematocrit 23.1 % (39.0-53.0) Mean Corpuscular Volume 67 fL (79-100) Mean Corpuscular Hemoglobin 20 pg (25-35) Mean Corpuscular Hemoglobin Concent 30 g/dL (31-37) Red Cell Distribution Width 25.6 % (11.5-14.5) Platelet Count 363 x10^3/uL (140-400) Neutrophils (%) (Auto) 81 % (31-73) Lymphocytes (%) (Auto) 11 % (24-48) Monocytes (%) (Auto) 7 % (0-9) Eosinophils (%) (Auto) 0 % (0-3) Basophils (%) (Auto) 0 % (0-3) Neutrophils # (Auto) 11.2 x10^3/uL (1.8-7.7) Lymphocytes # (Auto) 1.5 x10^3/uL (1.0-4.8) Monocytes # (Auto) 1.0 x10^3/uL (0.0-1.1) Eosinophils # (Auto) 0.0 x10^3/uL (0.0-0.7) Basophils # (Auto) 0.0 x10^3/uL (0.0-0.2) Sodium Level 134 mmol/L (136-145) Potassium Level 4.4 mmol/L (3.5-5.1) Chloride Level 102 mmol/L (98-107) Carbon Dioxide Level 26 mmol/L (21-32) Anion Gap 6 (6-14) Blood Urea Nitrogen 14 mg/dL (8-26) Creatinine 0.9 mg/dL (0.7-1.3) Estimated GFR (Cockcroft-Gault) 85.5 Glucose Level 117 mg/dL (70-99) Calcium Level 8.2 mg/dL (8.5-10.1) Comment Review of Relevant I have reviewed the following items christi (where applicable) has been applied. Medications: Current Medications Medications (Trade) Dose Ordered Sig/Sheila Route PRN Reason Start Time Stop Time Status Last Admin Dose Admin Sodium Chloride 1,000 ml @ 25 mls/hr Q24H IV 12/20/19 15:15 12/20/19 18:44 Hydromorphone HCl 30 ml @ 0 mls/hr CONT PRN PRN IV PER PROTOCOL 12/20/19 15:15 12/20/19 18:43 Albumin Human 500 ml @ 125 mls/hr 1X ONCE IV 12/20/19 16:00 12/20/19 19:59 DC 12/20/19 16:10 Justifications for Admission Other Justification PATRICK AVILES MD Dec 21, 2019 09:48
--- NOTE | 2019-12-21 09:53 | NUR ---
SW following. Discussed with RN, pt getting blood today. Pt will be here through the weekend after having surgery yesterday - still NPO. SW will continue to follow.
--- NOTE | 2019-12-21 11:55 | PDOC ---
Date of Service: DATE: 12/21/19 TIME: 11:52 Subjective: Subjective: Abd pain w/ movement. Throat pain and thirst are main issues. Belching, no flatus. Objective: Objective: Transfusion ordered, onc consult requested. Vital Signs: Vital Signs Date Time Temp Pulse Resp B/P (MAP) Pulse Ox O2 Delivery O2 Flow Rate FiO2 12/21/19 11:00 98.7 96 18 124/52 (76) 90 Nasal Cannula 3.0 98.7 Labs: Laboratory Tests Test 12/21/19 05:50 White Blood Count 13.8 x10^3/uL Red Blood Count 3.43 x10^6/uL Hemoglobin 6.9 g/dL Hematocrit 23.1 % Mean Corpuscular Volume 67 fL Mean Corpuscular Hemoglobin 20 pg Mean Corpuscular Hemoglobin Concent 30 g/dL Red Cell Distribution Width 25.6 % Platelet Count 363 x10^3/uL Neutrophils (%) (Auto) 81 % Lymphocytes (%) (Auto) 11 % Monocytes (%) (Auto) 7 % Eosinophils (%) (Auto) 0 % Basophils (%) (Auto) 0 % Neutrophils # (Auto) 11.2 x10^3/uL Lymphocytes # (Auto) 1.5 x10^3/uL Monocytes # (Auto) 1.0 x10^3/uL Eosinophils # (Auto) 0.0 x10^3/uL Basophils # (Auto) 0.0 x10^3/uL Sodium Level 134 mmol/L Potassium Level 4.4 mmol/L Chloride Level 102 mmol/L Carbon Dioxide Level 26 mmol/L Anion Gap 6 Blood Urea Nitrogen 14 mg/dL Creatinine 0.9 mg/dL Estimated GFR (Cockcroft-Gault) 85.5 Glucose Level 117 mg/dL Calcium Level 8.2 mg/dL PE: GEN: uncomfortable LUNGS: diminished HEART: RRR ABD: quiet NEURO/PSYCH: A & O 3 A/P: PAULINA Colon cancer s/p resection (splenic flexure, SBR) CAD, PVD -- Continue per surgery. Justicifation of Admission Dx: Justifications for Admission: Justification of Admission Dx: Yes [place]: Acute STEMI MATIAS MAR Dec 21, 2019 11:55
--- NOTE | 2019-12-21 12:16 | PDOC2 ---
CONSULT Date of Consult Date of Consult DATE: 12/21/19 TIME: 12:08 Reason for Consult Reason for Consult: Colon cancer Referring Physician Referring Physician: Dr. Solares Identification/Chief Complaint Chief Complaint Anemia Source Source: Chart review, Patient History of Present Illness Reason for Visit: Ari Mejia is a 64-year-old male with history of coronary artery disease and tobacco abuse was initially admitted for an aortogram due to intermittent claudication. His medical history is notable for recent staged PCI with drug-eluting stent placement to LAD and RCA. He was placed on dual antiplatelet therapy with aspirin and Brilinta ever since in October 2019. His preprocedure labs showed severe anemia with iron deficiency and a hemoglobin of 6.2. Procedure was therefore canceled. He received a colonoscopy with Dr. Wilkerson which showed a near obstructing mass in the sigmoid/descending colon. Scope was not advanced beyond this point. Biopsy was obtained and showed moderately differentiated adenocarcinoma of the colon. He underwent a left hemicolectomy on 12/20/[address] Skaggs. He is recovering well at this point. He denies any new symptoms. He denies a family history of colon cancer. Past Medical History Cardiovascular: CAD, HTN Past Surgical History Past Surgical History: No pertinent history Family History Family History: High Cholestrol, Hypertension Social History Quit (63 days ) ALCOHOL: other (2-3 beers a day, drank more before he quit smoking ) Drugs: None Current Medications Current Medications Current Medications Iodixanol (Visipaque 320) 100 ml STK-MED ONCE .ROUTE ; Start 12/15/19 at 07:47; Stop 12/15/19 at 07:47; Status DC Lidocaine HCl (Lidocaine 1% 20ml Vial) 20 ml STK-MED ONCE .ROUTE ; Start 12/15/19 at 07:47; Stop 12/15/19 at 07:47; Status DC Heparin Sodium/ Sodium Chloride 0 ml @ As Directed STK-MED ONCE .ROUTE ; Start 12/15/19 at 07:47; Stop 12/15/19 at 07:48; Status DC Sodium Chloride 1,000 ml @ 60 mls/hr [id number] IV Last administered on 12/15/19at 16:04; Start 12/15/19 at 08:49; Stop 12/16/19 at 08:48; Status DC Clopidogrel Bisulfate (Plavix) 75 mg DAILYWBKFT PO Last administered on 12/16/19at 08:17; Start 12/16/19 at 08:00; Stop 12/17/19 at 07:59; Status DC Pantoprazole Sodium (Protonix) 40 mg DAILYAC PO Last administered on 12/16/19at 08:19; Start 12/16/19 at 07:30; Stop 12/17/19 at 07:29; Status DC Atorvastatin Calcium (Lipitor) 40 mg QHS PO Last administered on 12/17/19at 21:28; Start 12/15/19 at 21:00; Stop 12/18/19 at 13:55; Status DC Losartan Potassium (Cozaar) 50 mg DAILY PO Last administered on 12/19/19at 10:10; Start 12/16/19 at 09:00 Metoprolol Succinate (Toprol Xl) 50 mg DAILY PO Last administered on 12/18/19at 09:08; Start 12/16/19 at 09:00; Stop 12/18/19 at 13:54; Status DC Nitroglycerin (Nitrostat) 0.4 mg PRN Q5MIN PRN SL CHEST PAIN; Start 12/15/19 at 16:15 Non-Formulary Medication (Fluticasone/ Salmeterol (Advair 100-50 Diskus)) 1 puff BID IH ; Start 12/15/19 at 21:00; Status UNV Multivitamins (Thera M Plus) 1 tab DAILY PO Last administered on 12/19/19at 10:10; Start 12/16/19 at 09:00 Albuterol Sulfate (Ventolin Neb Soln) 2.5 mg RTQID NEB Last administered on 12/20/19at 08:13; Start 12/15/19 at 20:00 Budesonide (Pulmicort) 0.5 mg RTBID NEB Last administered on 12/20/19at 08:13; Start 12/15/19 at 20:00 Cyclobenzaprine HCl (Flexeril) 5 mg PRN QHS PRN PO MUSCLE SPASMS; Start at 16:30 Furosemide (Lasix) 20 mg 1X ONCE IVP Last administered on 12/15/19at 18:38; Start 12/15/19 at 17:30; Stop 12/15/19 at 17:31; Status DC Magnesium Citrate (Citroma) 296 ml 1X ONCE PO Last administered on 12/17/19at 09:45; Start 12/17/19 at 09:00; Stop 12/17/19 at 09:01; Status DC Polyethylene Glycol (miraLAX Powder BULK BOTTLE) 238 gm 1X ONCE PO Last administered on 12/17/19at 15:13; Start 12/17/19 at 15:00; Stop 12/17/19 at 15:01; Status DC Bisacodyl (Dulcolax Tab) 20 mg 1X ONCE PO Last administered on 12/17/19at 14:14; Start 12/17/19 at 14:00; Stop 12/17/19 at 14:01; Status DC Ringer's Solution 1,000 ml @ 75 mls/hr [id number] IV Last administered on 12/18/19at 12:19; Start 12/18/19 at 12:30; Stop 12/18/19 at 20:00; Status DC Propofol (Diprivan) 200 mg STK-MED ONCE IV ; Start 12/18/19 at 12:31; Stop 12/18/19 at 12:31; Status DC Lidocaine HCl (Lidocaine Pf 2% Vial) 5 ml STK-MED ONCE .ROUTE ; Start 12/18/19 at 12:31; Stop 12/18/19 at 12:31; Status DC Ephedrine Sulfate (ePHEDrine PF IN SALINE SYRINGE) 50 mg STK-MED ONCE IV ; Start 12/18/19 at 12:33; Stop 12/18/19 at 12:33; Status DC Ephedrine Sulfate (Akovaz) 50 mg STK-MED ONCE .ROUTE ; Start 12/18/19 at 12:34; Stop 12/18/19 at 12:34; Status DC Metoprolol Succinate (Toprol Xl) 50 mg DAILY PO Last administered on 12/20/19at 08:06; Start 12/19/19 at 09:00 Atorvastatin Calcium (Lipitor) 40 mg QHS PO Last administered on 12/19/19at 20:21; Start 12/18/19 at 21:00 Iohexol (Omnipaque 300 Mg/ml) 75 ml 1X ONCE IV Last administered on 12/18/19at 16:02; Start 12/18/19 at 15:45; Stop 12/18/19 at 15:46; Status DC Iohexol (Omnipaque 240 Mg/ml) 50 ml 1X ONCE PO Last administered on 12/18/19at 16:02; Start 12/18/19 at 15:45; Stop 12/18/19 at 15:46; Status DC Info (CONTRAST GIVEN -- Rx MONITORING) 1 each PRN DAILY PRN MC SEE COMMENTS; Start 12/18/19 at 15:45; Stop 12/20/19 at 15:44; Status DC Ondansetron HCl (Zofran) 4 mg PRN Q6HRS PRN IV NAUSEA/VOMITING; Start 12/20/19 at 07:00; Stop 12/21/19 at 07:00; Status DC Fentanyl Citrate (Fentanyl 2ml Vial) 25 mcg PRN Q5MIN PRN IV MILD PAIN 1-3; Start 12/20/19 at 07:00; Stop 12/21/19 at 07:00; Status DC Fentanyl Citrate (Fentanyl 2ml Vial) 50 mcg PRN Q5MIN PRN IV MODERATE TO SEVERE PAIN; Start 12/20/19 at 07:00; Stop 12/21/19 at 07:00; Status DC Morphine Sulfate (Morphine Sulfate) 1 mg PRN Q10MIN PRN IV SEVERE PAIN 7-10; Start 12/20/19 at 07:00; Stop 12/21/19 at 07:00; Status DC Ringer's Solution 1,000 ml @ 30 mls/hr Q24H IV ; Start 12/20/19 at 07:00; Stop 12/20/19 at 18:59; Status DC Lidocaine HCl (Xylocaine-Mpf 1% 2ml Vial) 2 ml PRN 1X PRN ID PRIOR TO IV START; Start 12/20/19 at 07:00; Stop 12/21/19 at 07:00; Status DC Hydromorphone HCl (Dilaudid) 0.5 mg PRN Q10MIN PRN IV SEV PAIN, Second choice; Start 12/20/19 at 07:00; Stop 12/21/19 at 07:00; Status DC Prochlorperazine Edisylate (Compazine) 5 mg PACU PRN PRN IV NAUSEA, MRX1; Start 12/20/19 at 07:00; Stop 12/21/19 at 07:00; Status DC Cefazolin Sodium/ Dextrose 50 ml @ 100 mls/hr 1X PREOP PRN IV PRIOR TO PROCEDURE Last administered on 12/20/19at 10:44; Start 12/20/19 at 06:00; Stop 12/20/19 at 18:00; Status DC Metronidazole 100 ml @ 100 mls/hr 1X PREOP PRN IV PRIOR TO PROCEDURE Last administered on 12/20/19at 10:15; Start 12/20/19 at 06:00; Stop 12/20/19 at 18:00; Status DC Bupivacaine HCl/ Epinephrine Bitart (Sensorcain-Epi 0.5%-1:[id number] Mpf) 30 ml STK-MED ONCE .ROUTE ; Start 12/20/19 at 09:10; Stop 12/20/19 at 09:10; Status DC Rocuronium [place] (Zemuron) 100 mg STK-MED ONCE .ROUTE ; Start 12/20/19 at 09:25; Stop 12/20/19 at 09:25; Status DC Fentanyl Citrate (Fentanyl 2ml Vial) 100 mcg STK-MED ONCE .ROUTE ; Start 12/20/19 at 09:25; Stop 12/20/19 at 09:25; Status DC Midazolam HCl (Versed) 2 mg STK-MED ONCE .ROUTE ; Start 12/20/19 at 09:25; Stop 12/20/19 at 09:26; Status DC Desflurane (Suprane) 90 ml STK-MED ONCE IH ; Start 12/20/19 at 09:25; Stop 12/20/19 at 09:26; Status DC Propofol (Diprivan) 200 mg STK-MED ONCE IV ; Start 12/20/19 at 09:26; Stop 12/20/19 at 09:26; Status DC Dexamethasone Sodium Phosphate (Decadron) 4 mg STK-MED ONCE .ROUTE ; Start 12/20/19 at 09:26; Stop 12/20/19 at 09:26; Status DC Ondansetron HCl (Zofran) 4 mg STK-MED ONCE .ROUTE ; Start 12/20/19 at 09:26; Stop 12/20/19 at 09:26; Status DC Lidocaine HCl (Lidocaine Pf 2% Vial) 5 ml STK-MED ONCE .ROUTE ; Start 12/20/19 at 09:26; Stop 12/20/19 at 09:26; Status DC Ephedrine Sulfate (Akovaz) 50 mg STK-MED ONCE .ROUTE ; Start 12/20/19 at 11:40; Stop 12/20/19 at 11:41; Status DC Phenylephrine HCl (PHENYLEPHRINE in 0.9% NACL PF) 1 mg STK-MED ONCE IV ; Start 12/20/19 at 11:48; Stop 12/20/19 at 11:49; Status DC Hydromorphone HCl (Dilaudid) 2 mg STK-MED ONCE .ROUTE ; Start 12/20/19 at 13:22; Stop 12/20/19 at 13:22; Status DC Neostigmine [place] (Neostigmine Methylsulfate) 5 mg STK-MED ONCE .ROUTE ; Start 12/20/19 at 13:23; Stop 12/20/19 at 13:23; Status DC Glycopyrrolate (Robinul) 1 mg STK-MED ONCE .ROUTE ; Start 12/20/19 at 13:23; Stop 12/20/19 at 13:23; Status DC Rocuronium [place] (Zemuron) 50 mg STK-MED ONCE .ROUTE ; Start 12/20/19 at 14:15; Stop 12/20/19 at 14:15; Status DC Phenylephrine HCl (PHENYLEPHRINE in 0.9% NACL PF) 1 mg STK-MED ONCE IV ; Start 12/20/19 at 15:03; Stop 12/20/19 at 15:03; Status DC Albumin Human 500 ml @ As Directed STK-MED ONCE IV ; Start 12/20/19 at 15:15; Stop 12/20/19 at 15:16; Status DC Naloxone HCl (Narcan) 0.4 mg PRN Q2MIN PRN IV SEE INSTRUCTIONS; Start 12/20/19 at 15:15 Sodium Chloride 1,000 ml @ 25 mls/hr Q24H IV Last administered on 12/20/19at 18:44; Start 12/20/19 at 15:15 Hydromorphone HCl 30 ml @ 0 mls/hr CONT PRN PRN IV PER PROTOCOL Last administered on 12/20/19at 18:43; Start 12/20/19 at 15:15 Enoxaparin Sodium (Lovenox 40mg Syringe) 40 mg Q24H SQ ; Start 12/20/19 at 21:00 Albumin Human 500 ml @ 125 mls/hr 1X ONCE IV Last administered on 12/20/19at 16:10; Start 12/20/19 at 16:00; Stop 12/20/19 at 19:59; Status DC Phenol (Chloraseptic) 1 spray PRN Q2HR PRN PO SORE THROAT; Start 12/21/19 at 09:00 Active Scripts Active Metoprolol Succinate ( Xl ) (Metoprolol Succinate) 25 Mg Tab.er.24h 50 Mg PO DAILY 30 Days Nitrostat (Nitroglycerin) 0.4 Mg Tab.subl 0.4 Mg SL PRN Q5MIN PRN 30 Days Atorvastatin Calcium 20 Mg Tablet 40 Mg PO QHS 30 Days Reported Amlodipine Besylate 10 Mg Tablet 1 Tab PO DAILY Daily Vitamin (Multivitamin) 1 Each Tablet 1 Each PO Advair 100-50 Diskus (Fluticasone/Salmeterol) 1 Each Disk.w.dev 1 Puff IH BID Aspirin 81 Mg Tab.chew 1 Tab PO DAILY Losartan Potassium 50 Mg Tablet 1 Tab PO DAILY Allergies Allergies: Coded Allergies: No Known Drug Allergies (Unverified , 12/18/19) ROS General: YES: Fatigue; No: Chills, Night Sweats PSYCHOLOGICAL ROS: No: Anxiety, Behavioral Disorder Eyes: No Blurry vision, No Decreased vision HEENT: No: Heacaches, Visual Changes Hematological and Lymphatic: No: Bleeding Problems, Blood Clots ENDOCRINE: YES: Malaise/lethargy; No: Breast Changes, Mood Swings Breast: No New/Changing Breast Lumps Respiratory: No: Cough, Hemoptysis Cardiovascular: No Chest Pain, No Palpitations Gastrointestinal: No Nausea, No Vomiting Genitourinary: No Dysuria, No Flank Pain Musculoskeletal: No Joint Pain Neurological: No Behavorial Changes, No Bowel/Bladder ControlChng Skin: No Dry Skin, No Rash Physical Exam General: Alert, Oriented X3 HEENT: Atraumatic, PERRLA Lungs: Other (Fine crackles heard bilaterally, poor air entry) Heart: Regular rate, Normal S1 Abdomen: Normal bowel sounds Extremities: No clubbing Skin: No rashes Neuro: Normal speech Psych/Mental Status: Mental status NL MUSCULOSKELETAL: No swelling Vitals VITALS Vital Signs Date Time Temp Pulse Resp B/P (MAP) Pulse Ox O2 Delivery O2 Flow Rate FiO2 12/21/19 11:00 98.7 96 18 124/52 (76) 90 Nasal Cannula 3.0 98.7 Labs Labs Laboratory Tests Test 12/20/19 05:59 12/20/19 06:09 12/21/19 05:50 Sodium Level 132 mmol/L (136-145) 134 mmol/L (136-145) Potassium Level 4.5 mmol/L (3.5-5.1) 4.4 mmol/L (3.5-5.1) Chloride Level 100 mmol/L (98-107) 102 mmol/L (98-107) Carbon Dioxide Level 26 mmol/L (21-32) 26 mmol/L (21-32) Anion Gap 6 (6-14) 6 (6-14) Blood Urea Nitrogen 6 mg/dL (8-26) 14 mg/dL (8-26) Creatinine 0.9 mg/dL (0.7-1.3) 0.9 mg/dL (0.7-1.3) Estimated GFR (Cockcroft-Gault) 85.5 85.5 Glucose Level 99 mg/dL (70-99) 117 mg/dL (70-99) Calcium Level 8.7 mg/dL (8.5-10.1) 8.2 mg/dL (8.5-10.1) White Blood Count 9.1 x10^3/uL (4.0-11.0) 13.8 x10^3/uL (4.0-11.0) Red Blood Count 4.10 x10^6/uL (4.30-5.70) 3.43 x10^6/uL (4.30-5.70) Hemoglobin 8.5 g/dL (13.0-17.5) 6.9 g/dL (13.0-17.5) Hematocrit 27.4 % (39.0-53.0) 23.1 % (39.0-53.0) Mean Corpuscular Volume 67 fL (79-100) 67 fL (79-100) Mean Corpuscular Hemoglobin 21 pg (25-35) 20 pg (25-35) Mean Corpuscular Hemoglobin Concent 31 g/dL (31-37) 30 g/dL (31-37) Red Cell Distribution Width 25.5 % (11.5-14.5) 25.6 % (11.5-14.5) Platelet Count 442 x10^3/uL (140-400) 363 x10^3/uL (140-400) Neutrophils (%) (Auto) 65 % (31-73) 81 % (31-73) Lymphocytes (%) (Auto) 17 % (24-48) 11 % (24-48) Monocytes (%) (Auto) 11 % (0-9) 7 % (0-9) Eosinophils (%) (Auto) 7 % (0-3) 0 % (0-3) Basophils (%) (Auto) 1 % (0-3) 0 % (0-3) Neutrophils # (Auto) 5.9 x10^3/uL (1.8-7.7) 11.2 x10^3/uL (1.8-7.7) Lymphocytes # (Auto) 1.5 x10^3/uL (1.0-4.8) 1.5 x10^3/uL (1.0-4.8) Monocytes # (Auto) 1.0 x10^3/uL (0.0-1.1) 1.0 x10^3/uL (0.0-1.1) Eosinophils # (Auto) 0.6 x10^3/uL (0.0-0.7) 0.0 x10^3/uL (0.0-0.7) Basophils # (Auto) 0.1 x10^3/uL (0.0-0.2) 0.0 x10^3/uL (0.0-0.2) Laboratory Tests Test 12/21/19 05:50 White Blood Count 13.8 x10^3/uL (4.0-11.0) Red Blood Count 3.43 x10^6/uL (4.30-5.70) Hemoglobin 6.9 g/dL (13.0-17.5) Hematocrit 23.1 % (39.0-53.0) Mean Corpuscular Volume 67 fL (79-100) Mean Corpuscular Hemoglobin 20 pg (25-35) Mean Corpuscular Hemoglobin Concent 30 g/dL (31-37) Red Cell Distribution Width 25.6 % (11.5-14.5) Platelet Count 363 x10^3/uL (140-400) Neutrophils (%) (Auto) 81 % (31-73) Lymphocytes (%) (Auto) 11 % (24-48) Monocytes (%) (Auto) 7 % (0-9) Eosinophils (%) (Auto) 0 % (0-3) Basophils (%) (Auto) 0 % (0-3) Neutrophils # (Auto) 11.2 x10^3/uL (1.8-7.7) Lymphocytes # (Auto) 1.5 x10^3/uL (1.0-4.8) Monocytes # (Auto) 1.0 x10^3/uL (0.0-1.1) Eosinophils # (Auto) 0.0 x10^3/uL (0.0-0.7) Basophils # (Auto) 0.0 x10^3/uL (0.0-0.2) Sodium Level 134 mmol/L (136-145) Potassium Level 4.4 mmol/L (3.5-5.1) Chloride Level 102 mmol/L (98-107) Carbon Dioxide Level 26 mmol/L (21-32) Anion Gap 6 (6-14) Blood Urea Nitrogen 14 mg/dL (8-26) Creatinine 0.9 mg/dL (0.7-1.3) Estimated GFR (Cockcroft-Gault) 85.5 Glucose Level 117 mg/dL (70-99) Calcium Level 8.2 mg/dL (8.5-10.1) Images Images CT of the chest abdomen pelvis: IMPRESSION: 1. Colonic mass at the splenic flexure, which appears to extend cephalad cephalad into the mesenteric fat. The appearance is most consistent with malignancy. Small adjacent lymph nodes while ultimately nonspecific, are concerning for metastatic adenopathy. 2. Nonspecific thoracic adenopathy including a 2.1 cm x 1.6 cm pretracheal node . Metastatic disease cannot be excluded on the basis of this study. Consider PET/CT for further characterization. 3. Severe emphysema, with multifocal pleural parenchymal scarring, and calcified pleural plaques. Correlate with history of asbestos exposure 4. Extensive coronary calcification Assessment/Plan Assessment/Plan Assessment: Colon cancer Coronary artery disease Peripheral vascular disease Dual antiplatelet therapy Iron deficiency anemia Tobacco abuse, quit 2 months ago Recommendations: -Reviewed the pathology report with the patient -I discussed the history, role of staging and management of resected colon cancer -I briefly discussed the potential role for adjuvant chemotherapy in patients with stage III colon cancer -I discussed the findings of CT of the chest abdomen pelvis with the patient. Recommend PET CT prior to discharge for evaluation of paratracheal lymph node. Can be pursued as outpatient if not possible inpatient -Will order baseline CEA -Will order IV iron given significant iron deficiency -Check B12 -Encourage continuation of smoking cessation -Follow-up will be arranged in 2 weeks with me for review of surgical pathology and discussion of adjuvant chemotherapy Bhavin Shipman MD Medical Oncology/Hematology Ph: [phone] ROSEMARY SHIPMAN MD Dec 21, 2019 12:16
[2019-12-21] MEDS ORDERED: IRON SUCROSE COMPLEX 200 MG in IV NORMAL SALINE 100ML 100 ML IV SCH (12:30)
--- NOTE | 2019-12-21 14:35 | PDOC ---
ARIANE CURTIS SENIOR DATA SCIENTIST 12/21/19 1435: CARDIO Progress Notes Date and Time Date of Service 12/21/19 Time of Evaluation 1210 Subjective Subjective: No Chest Pain, No shortness of breath, Other (surgical pain.- MACHINE CLEANER helping ) Vitals Vitals Vital Signs Date Time Temp Pulse Resp B/P (MAP) Pulse Ox O2 Delivery O2 Flow Rate FiO2 12/21/19 14:03 97.8 99 16 108/49 97.8 12/21/19 11:00 90 Nasal Cannula 3.0 Weight Weight [ ] Input and Output Intake and Output Intake and Output 12/21/19 07:00 Intake Total 2050 ml Output Total 530 ml Balance 1520 ml Intake Oral 50 ml IV Total 2000 ml Output Urine Total 420 ml Gastric Drainage Total 10 ml Estimated Blood Loss 100 ml Laboratory Labs Laboratory Tests Test 12/21/19 05:50 White Blood Count 13.8 x10^3/uL (4.0-11.0) Red Blood Count 3.43 x10^6/uL (4.30-5.70) Hemoglobin 6.9 g/dL (13.0-17.5) Hematocrit 23.1 % (39.0-53.0) Mean Corpuscular Volume 67 fL (79-100) Mean Corpuscular Hemoglobin 20 pg (25-35) Mean Corpuscular Hemoglobin Concent 30 g/dL (31-37) Red Cell Distribution Width 25.6 % (11.5-14.5) Platelet Count 363 x10^3/uL (140-400) Neutrophils (%) (Auto) 81 % (31-73) Lymphocytes (%) (Auto) 11 % (24-48) Monocytes (%) (Auto) 7 % (0-9) Eosinophils (%) (Auto) 0 % (0-3) Basophils (%) (Auto) 0 % (0-3) Neutrophils # (Auto) 11.2 x10^3/uL (1.8-7.7) Lymphocytes # (Auto) 1.5 x10^3/uL (1.0-4.8) Monocytes # (Auto) 1.0 x10^3/uL (0.0-1.1) Eosinophils # (Auto) 0.0 x10^3/uL (0.0-0.7) Basophils # (Auto) 0.0 x10^3/uL (0.0-0.2) Sodium Level 134 mmol/L (136-145) Potassium Level 4.4 mmol/L (3.5-5.1) Chloride Level 102 mmol/L (98-107) Carbon Dioxide Level 26 mmol/L (21-32) Anion Gap 6 (6-14) Blood Urea Nitrogen 14 mg/dL (8-26) Creatinine 0.9 mg/dL (0.7-1.3) Estimated GFR (Cockcroft-Gault) 85.5 Glucose Level 117 mg/dL (70-99) Calcium Level 8.2 mg/dL (8.5-10.1) Vitamin B12 Level 622 pg/mL (247-911) Physical Exam HEENT: Neck Supple W Full Motion Chest: Symmetric LUNGS: Other (diminished ) Heart: RRR (not on tele) Abdomen: Other (tenderness, post surgery ) Extremities: No Edema Neurology: alert, oriented, follow commands Assessment Assessment 1. Anemia, iron deficient; hgb downtrend post-surgery. s/p transfusion 2. Sigmoid/descending colon tumor; s/p colon resection. tolerated well, POD#1. 2. CAD s/p PCI/FALGUNI to LAD and RCA (10/29/19). stable and chest pain free. 3. Chromic systolic heart failure, ischemic CMP. LVEF 35%. Clinically well compensated. 4. HTN: controlled 5. HLP: statins 6. PAD with claudication 7. H/o tobaccoism; recent remission Recommendations Place on tele. Will discuss resumption of antiplatelet therapy with surgical team Continue postop management as per Will address PAD on an outpatient basis when current issues resolved Reassess LV systolic function in 2 months. Justicifation of Admission Dx: Justifications for Admission: Justification of Admission Dx: Yes ME: Acute STEMI KEDAR SANTACRUZ MD 12/21/192002: CARDIO Progress Notes Assessment Assessment Patient seen and examined. Agree with CERTIFIED SOLID WASTE FACILITY OPERATOR's assessment and plan. s/p colon resection - continue post op care per GS team Chr systolic heart failure compensated CAD clinically stable Start aggrastat infusion due to recent PCI/FALGUNI and change to Plavix once able to take PO ARIANE CURTIS APRN Dec 21, 2019 14:35 KEDAR SANTACRUZ MD Dec 21, 2019 20:03
[2019-12-21] MEDS: IRON SUCROSE COMPLEX 200 MG in IV NORMAL SALINE 100ML 100 ML IV SCH (16:34)
--- NOTE | 2019-12-21 18:39 | NUR ---
report given to STEPHANIA tabor. pt transferred to room 206.
--- NOTE | 2019-12-21 19:06 | NUR ---
Patient transferred from , patient arrived to floor around 1834. Patient settled in bed.
[2019-12-21] MEDS: ENOXAPARIN 40 MG/0.4 ML SYRINGE. SQ SCH (21:00)
--- NOTE | 2019-12-21 21:37 | NUR ---
Sj held after phone clarification with Dr. Morin at [phone].
[2019-12-21] MEDS: TIROFIBAN 5MG -0.9% NS 100 ML IV PRN (21:53)
[2019-12-21] MEDS: ATORVASTATIN CALCIUM 40 MG TABLET. PO SCH (21:57)
[2019-12-22 02:51] VITALS: BP 129/60
[2019-12-22] MEDS: TIROFIBAN 5MG -0.9% NS 100 ML IV PRN ×3 (03:35→17:53)
--- NOTE | 2019-12-22 05:06 | NUR ---
Pt ambulated to the bathroom with limited assistance to attempt to pass gas or have even a small, smear BM, unsuccessfully. Pt did not feel he could naturally pass gas in his bed or sitting at bedside, which he attempted to do earlier this shift. Bowel sounds present 4quadrants.
[2019-12-22 07:00] VITALS: BP_SYST 134; BP_SYST 97; BP_DIAS 48; BP_DIAS 54
[2019-12-22 08:11] LABS: BASO # 0.1 x10^3/uL (0.0-0.2); BASO % 1 % (0-3); EOS # 0.2 x10^3/uL (0.0-0.7); EOS % 1 % (0-3); HEMATOCRIT 27.5 % (39.0-53.0); HEMOGLOBIN 8.3 g/dL (13.0-17.5); LYMPH # 1.1 x10^3/uL (1.0-4.8); LYMPH % 8 % (24-48); MEAN CORPUSCULAR HEMOGLOBIN 21 pg (25-35); MEAN CORPUSCULAR HGB CONC 30 g/dL (31-37); MEAN CORPUSCULAR VOLUME 70 fL (79-100); MONO % 7 % (0-9); NEUT # 11.9 x10^3/uL (1.8-7.7); NEUT % 84 % (31-73); PLATELET COUNT 387 x10^3/uL (140-400); RED BLOOD COUNT 3.96 x10^6/uL (4.30-5.70); RED CELL DISTRIBUTION WIDTH 25.7 % (11.5-14.5); WHITE BLOOD COUNT 14.2 x10^3/uL (4.0-11.0)
[2019-12-22] MEDS: ALBUTEROL SULFATE 2.5 MG/3 ML NEBU. NEB SCH ×4 (08:14→19:40)
[2019-12-22] MEDS: BUDESONIDE 0.5 MG/2 ML NEBU. NEB SCH ×2 (08:14→19:40)
[2019-12-22] MEDS: IRON SUCROSE COMPLEX 200 MG in IV NORMAL SALINE 100ML 100 ML IV SCH (08:35)
[2019-12-22] MEDS: IV NORMAL SALINE 1000ML BAG 1,000 ML IV SCH ×2 (08:36→15:15)
--- NOTE | 2019-12-22 08:36 | PDOC ---
SAADIA FALL SALES ACTIVITY MANAGER 12/22/19 0836: CARDIO Progress Notes Date and Time Date of Service 12/22/2019 Time of Evaluation 1010 Subjective Subjective: No Chest Pain, No shortness of breath, Other (abd surgical pain controlled) Vitals Vitals Vital Signs Date Time Temp Pulse Resp B/P (MAP) Pulse Ox O2 Delivery O2 Flow Rate FiO2 12/22/19 08:17 94 Nasal Cannula 4.0 12/22/19 02:51 98.5 97 18 129/60 (83) 98.5 Weight Weight [ ] Input and Output Intake and Output Intake and Output 12/22/19 07:00 Intake Total 396 ml Output Total 750 ml Balance -354 ml Intake Oral 0 ml IV Total 100 ml Blood Product IV Normal Saline Flush 296 ml Output Urine Total 750 ml # Bowel Movements 1 Laboratory Labs Laboratory Tests Test 12/22/19 08:00 White Blood Count 14.2 x10^3/uL (4.0-11.0) Red Blood Count 3.96 x10^6/uL (4.30-5.70) Hemoglobin 8.3 g/dL (13.0-17.5) Hematocrit 27.5 % (39.0-53.0) Mean Corpuscular Volume 70 fL (79-100) Mean Corpuscular Hemoglobin 21 pg (25-35) Mean Corpuscular Hemoglobin Concent 30 g/dL (31-37) Red Cell Distribution Width 25.7 % (11.5-14.5) Platelet Count 387 x10^3/uL (140-400) Neutrophils (%) (Auto) 84 % (31-73) Lymphocytes (%) (Auto) 8 % (24-48) Monocytes (%) (Auto) 7 % (0-9) Eosinophils (%) (Auto) 1 % (0-3) Basophils (%) (Auto) 1 % (0-3) Neutrophils # (Auto) 11.9 x10^3/uL (1.8-7.7) Lymphocytes # (Auto) 1.1 x10^3/uL (1.0-4.8) Monocytes # (Auto) 1.0 x10^3/uL (0.0-1.1) Eosinophils # (Auto) 0.2 x10^3/uL (0.0-0.7) Basophils # (Auto) 0.1 x10^3/uL (0.0-0.2) Physical Exam HEENT: Neck Supple W Full Motion Chest: Symmetric LUNGS: Other (diminished ) Heart: RRR (SR with PVCs) Abdomen: Other (tenderness, post surgery; abd binder on, NGT) Extremities: Other (trace LE) Neurology: alert, oriented, follow commands Assessment Assessment 1. Anemia, iron deficient; hgb downtrend post-surgery. s/p transfusion Hgb at 8.3 2. Sigmoid/descending colon tumor; s/p colon resection. tolerated well, POD#2 2. CAD s/p PCI/FALGUNI to LAD and RCA (10/29/19). stable and chest pain free. 3. Chromic systolic heart failure, ischemic CMP. LVEF 35%. compensated. 4. HTN: controlled 5. HLP: statins 6. PAD with claudication 7. H/o tobaccoism; recent remission Recommendations Remains NPO with NGT in place. Continue aggrastat with recent PCI noted above Will convert to PO plavix when PO allowed Secondary prevention measures once PO allowed. Convert metoprolol to IV. Lasix IV PRN Will address PAD on an outpatient basis when current issues resolved Reassess LV systolic function in 2 months. Aggressive IS Justicifation of Admission Dx: Justifications for Admission: Justification of Admission Dx: Yes [place]: Acute STEMI KEDAR SANTACRUZ MD 12/23/19 0826: CARDIO Progress Notes Assessment Assessment Patient seen and examined 12/22/19. Agree with MACHINE STEMMER's assessment and plan. s/p colon resection - continue post op care per GS team Chr systolic heart failure compensated CAD clinically stable Continue aggrastat infusion due to recent PCI/FALGUNI and change to Plavix once able to take PO SAADIA FALL APRN Dec 22, 2019 08:36 KEDAR SANTACRUZ MD Dec 23, 2019 08:26
[2019-12-22 08:53] LABS: CALCIUM 8.3 mg/dL (8.5-10.1); CREATININE 0.9 mg/dL (0.7-1.3); GFR 85.5; POTASSIUM 4.5 mmol/L (3.5-5.1)
[2019-12-22] MEDS: LOSARTAN POTASSIUM 50 MG TABLET. PO SCH (09:00)
[2019-12-22] MEDS: METOPROLOL SUCC 24HR ER 50 MG TAB.ER.24H. PO SCH (09:00)
[2019-12-22] MEDS: MULTIVITAMIN with MINERAL TABLET. PO SCH (09:00)
--- NOTE | 2019-12-22 09:54 | PDOC ---
LONI HUFF ENROBER TENDER 12/22/19 0954: SURGICAL PROGRESS NOTE DATE: 12/22/19 TIME: 09:51 Subjective wants to eat burping no flatus Vital Signs Vital Signs Date Time Temp Pulse Resp B/P (MAP) Pulse Ox O2 Delivery O2 Flow Rate FiO2 12/22/19 08:17 94 Nasal Cannula 4.0 12/22/19 07:00 97.5 101 18 134/48 (76) 97.5 I&O Intake and Output 12/22/19 07:00 Intake Total 396 ml Output Total 750 ml Balance -354 ml Intake Oral 0 ml IV Total 100 ml Blood Product IV Normal Saline Flush 296 ml Output Urine Total 750 ml # Bowel Movements 1 PATIENT HAS A JIMENEZ: Yes General: Alert, Oriented X3 HEENT: Atraumatic, Other (ng in place) Abdomen: Soft Labs Laboratory Tests Test 12/21/19 05:50 12/22/19 08:00 White Blood Count 13.8 x10^3/uL (4.0-11.0) 14.2 x10^3/uL (4.0-11.0) Red Blood Count 3.43 x10^6/uL (4.30-5.70) 3.96 x10^6/uL (4.30-5.70) Hemoglobin 6.9 g/dL (13.0-17.5) 8.3 g/dL (13.0-17.5) Hematocrit 23.1 % (39.0-53.0) 27.5 % (39.0-53.0) Mean Corpuscular Volume 67 fL (79-100) 70 fL (79-100) Mean Corpuscular Hemoglobin 20 pg (25-35) 21 pg (25-35) Mean Corpuscular Hemoglobin Concent 30 g/dL (31-37) 30 g/dL (31-37) Red Cell Distribution Width 25.6 % (11.5-14.5) 25.7 % (11.5-14.5) Platelet Count 363 x10^3/uL (140-400) 387 x10^3/uL (140-400) Neutrophils (%) (Auto) 81 % (31-73) 84 % (31-73) Lymphocytes (%) (Auto) 11 % (24-48) 8 % (24-48) Monocytes (%) (Auto) 7 % (0-9) 7 % (0-9) Eosinophils (%) (Auto) 0 % (0-3) 1 % (0-3) Basophils (%) (Auto) 0 % (0-3) 1 % (0-3) Neutrophils # (Auto) 11.2 x10^3/uL (1.8-7.7) 11.9 x10^3/uL (1.8-7.7) Lymphocytes # (Auto) 1.5 x10^3/uL (1.0-4.8) 1.1 x10^3/uL (1.0-4.8) Monocytes # (Auto) 1.0 x10^3/uL (0.0-1.1) 1.0 x10^3/uL (0.0-1.1) Eosinophils # (Auto) 0.0 x10^3/uL (0.0-0.7) 0.2 x10^3/uL (0.0-0.7) Basophils # (Auto) 0.0 x10^3/uL (0.0-0.2) 0.1 x10^3/uL (0.0-0.2) Sodium Level 134 mmol/L (136-145) 138 mmol/L (136-145) Potassium Level 4.4 mmol/L (3.5-5.1) 4.5 mmol/L (3.5-5.1) Chloride Level 102 mmol/L (98-107) 103 mmol/L (98-107) Carbon Dioxide Level 26 mmol/L (21-32) 26 mmol/L (21-32) Anion Gap 6 (6-14) 9 (6-14) Blood Urea Nitrogen 14 mg/dL (8-26) 14 mg/dL (8-26) Creatinine 0.9 mg/dL (0.7-1.3) 0.9 mg/dL (0.7-1.3) Estimated GFR (Cockcroft-Gault) 85.5 85.5 Glucose Level 117 mg/dL (70-99) 98 mg/dL (70-99) Calcium Level 8.2 mg/dL (8.5-10.1) 8.3 mg/dL (8.5-10.1) Vitamin B12 Level 622 pg/mL (247-911) Laboratory Tests Test 12/22/19 08:00 White Blood Count 14.2 x10^3/uL (4.0-11.0) Red Blood Count 3.96 x10^6/uL (4.30-5.70) Hemoglobin 8.3 g/dL (13.0-17.5) Hematocrit 27.5 % (39.0-53.0) Mean Corpuscular Volume 70 fL (79-100) Mean Corpuscular Hemoglobin 21 pg (25-35) Mean Corpuscular Hemoglobin Concent 30 g/dL (31-37) Red Cell Distribution Width 25.7 % (11.5-14.5) Platelet Count 387 x10^3/uL (140-400) Neutrophils (%) (Auto) 84 % (31-73) Lymphocytes (%) (Auto) 8 % (24-48) Monocytes (%) (Auto) 7 % (0-9) Eosinophils (%) (Auto) 1 % (0-3) Basophils (%) (Auto) 1 % (0-3) Neutrophils # (Auto) 11.9 x10^3/uL (1.8-7.7) Lymphocytes # (Auto) 1.1 x10^3/uL (1.0-4.8) Monocytes # (Auto) 1.0 x10^3/uL (0.0-1.1) Eosinophils # (Auto) 0.2 x10^3/uL (0.0-0.7) Basophils # (Auto) 0.1 x10^3/uL (0.0-0.2) Sodium Level 138 mmol/L (136-145) Potassium Level 4.5 mmol/L (3.5-5.1) Chloride Level 103 mmol/L (98-107) Carbon Dioxide Level 26 mmol/L (21-32) Anion Gap 9 (6-14) Blood Urea Nitrogen 14 mg/dL (8-26) Creatinine 0.9 mg/dL (0.7-1.3) Estimated GFR (Cockcroft-Gault) 85.5 Glucose Level 98 mg/dL (70-99) Calcium Level 8.3 mg/dL (8.5-10.1) Problem List continue ng await bowel function dc jimenez Justicifation of Admission Dx: Justifications for Admission: Justification of Admission Dx: Yes [place]: Acute STEMI TULIO SHAIKH MD 12/22/19 1106: SURGICAL PROGRESS NOTE Assessment/Plan Agree with Mega assessment and plan LONI HUFF APRN Dec 22, 2019 09:54 TULIO SHAIKH MD Dec 22, 2019 11:06
[2019-12-22 11:00] VITALS: BP 136/52
--- NOTE | 2019-12-22 11:10 | PDOC ---
[facility] PROGRESS NOTE Date of Service DOS: DATE: 12/22/19 TIME: 10:50 Chief Complaint Chief Complaint Claudication Adenocarcinoma of colon - s/p resection on 12/20/2019 CAD, stable Acute blood loss anemia History of Present Illness History of Present Illness 12/22/2019 Postop Day 2 - colectomy Patient seen and examined Discussed with RN Discussed with case management Reviewed chart Covid negative as of 12/19/2019 Hx of CAD with 4 stent placement in 10/2019, recently quit smoking two months ago. Patient was sitting with NAD, with tirofiban and iron sucrose being infused, Dilotid FREIGHT ROUTER, Mistry catheter bedside draining, NG suction set to LIS Hope to discharge per surgery Mr Mejia is a 64 y/o male w/ h/o CAD s/p stent(s) placement in 10/2019 on Brilinta and ASA and h/o PVD w/ RLE pain here for femoral runoff which was cancelled due to anemia. Denies hematemesis, hematochezia, and melena. Rare heartburn after eating [place] food, maybe takes Rolaids sometimes. No dysphagia, n/v, abd pain, diarrhea, or constipation. Has lost some weight after he quit drinking soda. No previous EGD or colonoscopy, maybe had an UGI once. No GB, liver, pancreas, or PUD history. Rare NSAIDs. 12/14: Hb 6.2 s/p 2u PRBC. 12/15: Patient's hemoglobin remained stable at 8.2. No further bleeding anywhere. 12/16:Patient's hemoglobin remained stable. No bloody stools. 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 12/18: Patient evaluated at bedside. Discussed results of his colonoscopy, showing near obstructing colon cancer. 12/19: To colectomy today. WBC 13.8, Hb 6.9 today. He has had no bowel movement no vomiting. He is asking for water or ice chips. Pain is well controlled on his FREIGHT ROUTER. Wants to get up. No chest pain shortness of breath or lower extremity pain. Vitals/I&O Vitals/I&O: Vital Signs Date Time Temp Pulse Resp B/P (MAP) Pulse Ox O2 Delivery O2 Flow Rate FiO2 12/22/19 08:17 94 Nasal Cannula 4.0 12/22/19 07:00 97.5 101 18 134/48 (76) 97.5 I & O 12/21/19 12/21/19 12/22/19 15:00 23:00 07:00 Intake Total 296 ml 100 ml Output Total 100 ml 350 ml 300 ml Balance -100 ml -54 ml -200 ml Physical Exam Physical Exam: General: No acute distress Heart: Regular rate Abdomen: Normal bowel sounds Extremities: No cyanosis General: Alert, Cooperative, No acute distress Heart: Regular rate, Normal S1 Lungs: Clear Abdomen: Soft Extremities: No clubbing Skin: No rashes Labs Labs: Laboratory Tests Test 12/22/19 08:00 White Blood Count 14.2 x10^3/uL (4.0-11.0) Red Blood Count 3.96 x10^6/uL (4.30-5.70) Hemoglobin 8.3 g/dL (13.0-17.5) Hematocrit 27.5 % (39.0-53.0) Mean Corpuscular Volume 70 fL (79-100) Mean Corpuscular Hemoglobin 21 pg (25-35) Mean Corpuscular Hemoglobin Concent 30 g/dL (31-37) Red Cell Distribution Width 25.7 % (11.5-14.5) Platelet Count 387 x10^3/uL (140-400) Neutrophils (%) (Auto) 84 % (31-73) Lymphocytes (%) (Auto) 8 % (24-48) Monocytes (%) (Auto) 7 % (0-9) Eosinophils (%) (Auto) 1 % (0-3) Basophils (%) (Auto) 1 % (0-3) Neutrophils # (Auto) 11.9 x10^3/uL (1.8-7.7) Lymphocytes # (Auto) 1.1 x10^3/uL (1.0-4.8) Monocytes # (Auto) 1.0 x10^3/uL (0.0-1.1) Eosinophils # (Auto) 0.2 x10^3/uL (0.0-0.7) Basophils # (Auto) 0.1 x10^3/uL (0.0-0.2) Sodium Level 138 mmol/L (136-145) Potassium Level 4.5 mmol/L (3.5-5.1) Chloride Level 103 mmol/L (98-107) Carbon Dioxide Level 26 mmol/L (21-32) Anion Gap 9 (6-14) Blood Urea Nitrogen 14 mg/dL (8-26) Creatinine 0.9 mg/dL (0.7-1.3) Estimated GFR (Cockcroft-Gault) 85.5 Glucose Level 98 mg/dL (70-99) Calcium Level 8.3 mg/dL (8.5-10.1) Review of Systems Review of Systems: Denies pain Denies weakness Assessment and Plan Assessmemt and Plan Assessment Claudication Adenocarcinoma of colon - s/p resection on 12/20/2019 CAD, stable Acute blood loss anemia Plan Wound care Hope to dc Dilotid FREIGHT ROUTER Hope to dc Mistry Continue IV Fe PRN Hope to advance diet when NGT is removed Still waiting on bowel movement Trend labs, Hgb 8.3 today (dropped to 6.9 yesterday) Cardiac monitoring PT/OT Home meds PRN DVT prophylaxis Full code After surgery recovery, patient will need PET Hope to discharge per surgery Comment Review of Relevant I have reviewed the following items christi (where applicable) has been applied. Medications: Current Medications Medications (Trade) Dose Ordered Sig/Sheila Route PRN Reason Start Time Stop Time Status Last Admin Dose Admin Iron Sucrose 200 mg/Sodium Chloride 110 ml @ 55 mls/hr DAILY IV 12/21/19 14:00 12/25/19 10:59 12/22/19 08:35 Tirofiban/Sodium Chloride 100 ml @ 0 mls/hr CONT PRN IV SEE COMMENTS 12/21/19 16:00 12/22/19 09:43 Justifications for Admission Other Justification DIOGENES DA SILVA III DO Dec 22, 2019 11:10
--- NOTE | 2019-12-22 11:30 | PDOC ---
Date of Service: DATE: 12/22/19 TIME: 11:27 Objective: Objective: D/w nurse - grumpy, wants to eat and leave. Vital Signs: Vital Signs Date Time Temp Pulse Resp B/P (MAP) Pulse Ox O2 Delivery O2 Flow Rate FiO2 12/22/19 08:17 94 Nasal Cannula 4.0 12/22/19 07:00 97.5 101 18 134/48 (76) 97.5 Labs: Laboratory Tests Test 12/22/19 08:00 White Blood Count 14.2 x10^3/uL Red Blood Count 3.96 x10^6/uL Hemoglobin 8.3 g/dL Hematocrit 27.5 % Mean Corpuscular Volume 70 fL Mean Corpuscular Hemoglobin 21 pg Mean Corpuscular Hemoglobin Concent 30 g/dL Red Cell Distribution Width 25.7 % Platelet Count 387 x10^3/uL Neutrophils (%) (Auto) 84 % Lymphocytes (%) (Auto) 8 % Monocytes (%) (Auto) 7 % Eosinophils (%) (Auto) 1 % Basophils (%) (Auto) 1 % Neutrophils # (Auto) 11.9 x10^3/uL Lymphocytes # (Auto) 1.1 x10^3/uL Monocytes # (Auto) 1.0 x10^3/uL Eosinophils # (Auto) 0.2 x10^3/uL Basophils # (Auto) 0.1 x10^3/uL Sodium Level 138 mmol/L Potassium Level 4.5 mmol/L Chloride Level 103 mmol/L Carbon Dioxide Level 26 mmol/L Anion Gap 9 Blood Urea Nitrogen 14 mg/dL Creatinine 0.9 mg/dL Estimated GFR (Cockcroft-Gault) 85.5 Glucose Level 98 mg/dL Calcium Level 8.3 mg/dL Current Medicatio PE: GEN: NAD - Dr. Noelle bolaños med students in room LUNGS: diminished, NC HEART: RRR ABD: NG tube, soft NEURO/PSYCH: A & O 3 A/P: PAULINA Colon cancer s/p resection CAD, PVD -- Continue per surgery, follow-up w/ oncology as planned. Justicifation of Admission Dx: Justifications for Admission: Justification of Admission Dx: Yes [place]: Acute STEMI MATIAS MAR Dec 22, 2019 11:30
--- NOTE | 2019-12-22 11:53 | NUR ---
SS following for discharge planning. SS reviewed pt chart and discussed with pt RN. Pt is from home with spouse and is currently requiring oxygen. COVID19 negative. Pt had surgery on 12/20/2019. Pt NPO and has NG tube. No PT needs. Discharge plan is to home when medically stable. SS will continue to follow for discharge planning.
[2019-12-22] MEDS: METOPROLOL TARTRATE 5 MG/5 ML VIAL. IVP SCH ×2 (12:38→17:53)
[2019-12-22 15:00] VITALS: BP 125/66
[2019-12-22 19:25] VITALS: BP 112/67
[2019-12-22] MEDS: ATORVASTATIN CALCIUM 40 MG TABLET. PO SCH (21:00)
[2019-12-22] MEDS: FAMOTIDINE 20 MG/2 ML VIAL IVP SCH (22:05)
[2019-12-22] MEDS: ENOXAPARIN 40 MG/0.4 ML SYRINGE. SQ SCH (22:07)
[2019-12-22 23:33] VITALS: BP 142/75
[2019-12-23] MEDS: TIROFIBAN 5MG -0.9% NS 100 ML IV PRN ×3 (01:00→17:57)
[2019-12-23] MEDS: METOPROLOL TARTRATE 5 MG/5 ML VIAL. IVP SCH ×4 (01:01→18:40)
[2019-12-23 03:25] VITALS: BP 143/69
[2019-12-23 04:23] LABS: BASO # 0.1 x10^3/uL (0.0-0.2); BASO % 1 % (0-3); EOS # 0.7 x10^3/uL (0.0-0.7); EOS % 5 % (0-3); HEMATOCRIT 29.4 % (39.0-53.0); HEMOGLOBIN 8.9 g/dL (13.0-17.5); LYMPH # 1.6 x10^3/uL (1.0-4.8); LYMPH % 12 % (24-48); MEAN CORPUSCULAR HEMOGLOBIN 21 pg (25-35); MEAN CORPUSCULAR HGB CONC 30 g/dL (31-37); MEAN CORPUSCULAR VOLUME 69 fL (79-100); MONO % 8 % (0-9); NEUT # 9.7 x10^3/uL (1.8-7.7); NEUT % 75 % (31-73); PLATELET COUNT 395 x10^3/uL (140-400); RED BLOOD COUNT 4.27 x10^6/uL (4.30-5.70); RED CELL DISTRIBUTION WIDTH 25.6 % (11.5-14.5)
[2019-12-23 04:37] LABS: CALCIUM 8.2 mg/dL (8.5-10.1); CREATININE 0.8 mg/dL (0.7-1.3); POTASSIUM 3.8 mmol/L (3.5-5.1)
[2019-12-23 07:00] VITALS: BP 140/66
[2019-12-23] MEDS: MULTIVITAMIN with MINERAL TABLET. PO SCH (07:22)
[2019-12-23] MEDS: LOSARTAN POTASSIUM 50 MG TABLET. PO SCH (07:22)
[2019-12-23] MEDS: METOPROLOL SUCC 24HR ER 50 MG TAB.ER.24H. PO SCH (07:23)
[2019-12-23] MEDS: BUDESONIDE 0.5 MG/2 ML NEBU. NEB SCH ×2 (07:55→19:35)
[2019-12-23] MEDS: ALBUTEROL SULFATE 2.5 MG/3 ML NEBU. NEB SCH ×4 (07:55→19:35)
--- NOTE | 2019-12-23 08:34 | PDOC ---
SURGICAL PROGRESS NOTE DATE: 12/23/19 TIME: 08:32 Subjective Patient very frustrated has not had a bowel movement or passing gas would like to have something to drink. Denies any nausea Vital Signs Vital Signs Date Time Temp Pulse Resp B/P (MAP) Pulse Ox O2 Delivery O2 Flow Rate FiO2 12/23/19 07:54 99 Nasal Cannula 3.0 12/23/19 05:45 81 143/69 12/23/19 03:25 98.6 18 98.6 I&O Intake and Output 12/23/19 07:00 Intake Total 120 ml Output Total 2100 ml Balance -1980 ml Intake Oral 120 ml Output Urine Total 900 ml Gastric Drainage Total 1200 ml PATIENT HAS A SALAS: No General: Alert, Oriented X3, Cooperative, mild distress, Other (NG tube in place) Lungs: Clear to auscultation, Normal air movement Heart: Regular rate, No murmurs Abdomen: Normal bowel sounds, Soft, Other (Mild incisional tenderness wounds clean dry and intact) Labs Laboratory Tests Test 12/22/19 08:00 12/23/19 04:00 White Blood Count 14.2 x10^3/uL (4.0-11.0) 13.0 x10^3/uL (4.0-11.0) Red Blood Count 3.96 x10^6/uL (4.30-5.70) 4.27 x10^6/uL (4.30-5.70) Hemoglobin 8.3 g/dL (13.0-17.5) 8.9 g/dL (13.0-17.5) Hematocrit 27.5 % (39.0-53.0) 29.4 % (39.0-53.0) Mean Corpuscular Volume 70 fL (79-100) 69 fL (79-100) Mean Corpuscular Hemoglobin 21 pg (25-35) 21 pg (25-35) Mean Corpuscular Hemoglobin Concent 30 g/dL (31-37) 30 g/dL (31-37) Red Cell Distribution Width 25.7 % (11.5-14.5) 25.6 % (11.5-14.5) Platelet Count 387 x10^3/uL (140-400) 395 x10^3/uL (140-400) Neutrophils (%) (Auto) 84 % (31-73) 75 % (31-73) Lymphocytes (%) (Auto) 8 % (24-48) 12 % (24-48) Monocytes (%) (Auto) 7 % (0-9) 8 % (0-9) Eosinophils (%) (Auto) 1 % (0-3) 5 % (0-3) Basophils (%) (Auto) 1 % (0-3) 1 % (0-3) Neutrophils # (Auto) 11.9 x10^3/uL (1.8-7.7) 9.7 x10^3/uL (1.8-7.7) Lymphocytes # (Auto) 1.1 x10^3/uL (1.0-4.8) 1.6 x10^3/uL (1.0-4.8) Monocytes # (Auto) 1.0 x10^3/uL (0.0-1.1) 1.0 x10^3/uL (0.0-1.1) Eosinophils # (Auto) 0.2 x10^3/uL (0.0-0.7) 0.7 x10^3/uL (0.0-0.7) Basophils # (Auto) 0.1 x10^3/uL (0.0-0.2) 0.1 x10^3/uL (0.0-0.2) Sodium Level 138 mmol/L (136-145) 141 mmol/L (136-145) Potassium Level 4.5 mmol/L (3.5-5.1) 3.8 mmol/L (3.5-5.1) Chloride Level 103 mmol/L (98-107) 103 mmol/L (98-107) Carbon Dioxide Level 26 mmol/L (21-32) 27 mmol/L (21-32) Anion Gap 9 (6-14) 11 (6-14) Blood Urea Nitrogen 14 mg/dL (8-26) 13 mg/dL (8-26) Creatinine 0.9 mg/dL (0.7-1.3) 0.8 mg/dL (0.7-1.3) Estimated GFR (Cockcroft-Gault) 85.5 98.0 Glucose Level 98 mg/dL (70-99) 93 mg/dL (70-99) Calcium Level 8.3 mg/dL (8.5-10.1) 8.2 mg/dL (8.5-10.1) Laboratory Tests Test 12/23/19 04:00 White Blood Count 13.0 x10^3/uL (4.0-11.0) Red Blood Count 4.27 x10^6/uL (4.30-5.70) Hemoglobin 8.9 g/dL (13.0-17.5) Hematocrit 29.4 % (39.0-53.0) Mean Corpuscular Volume 69 fL (79-100) Mean Corpuscular Hemoglobin 21 pg (25-35) Mean Corpuscular Hemoglobin Concent 30 g/dL (31-37) Red Cell Distribution Width 25.6 % (11.5-14.5) Platelet Count 395 x10^3/uL (140-400) Neutrophils (%) (Auto) 75 % (31-73) Lymphocytes (%) (Auto) 12 % (24-48) Monocytes (%) (Auto) 8 % (0-9) Eosinophils (%) (Auto) 5 % (0-3) Basophils (%) (Auto) 1 % (0-3) Neutrophils # (Auto) 9.7 x10^3/uL (1.8-7.7) Lymphocytes # (Auto) 1.6 x10^3/uL (1.0-4.8) Monocytes # (Auto) 1.0 x10^3/uL (0.0-1.1) Eosinophils # (Auto) 0.7 x10^3/uL (0.0-0.7) Basophils # (Auto) 0.1 x10^3/uL (0.0-0.2) Sodium Level 141 mmol/L (136-145) Potassium Level 3.8 mmol/L (3.5-5.1) Chloride Level 103 mmol/L (98-107) Carbon Dioxide Level 27 mmol/L (21-32) Anion Gap 11 (6-14) Blood Urea Nitrogen 13 mg/dL (8-26) Creatinine 0.8 mg/dL (0.7-1.3) Estimated GFR (Cockcroft-Gault) 98.0 Glucose Level 93 mg/dL (70-99) Calcium Level 8.2 mg/dL (8.5-10.1) Assessment/Plan Status post colon resection awaiting return of bowel functions bowel function has been slow Patient would likely benefit from PPN We will check abdominal films Continue supportive care Justicifation of Admission Dx: Justifications for Admission: Justification of Admission Dx: Yes IN: Acute STEMI TULIO SHAIKH MD Dec 23, 2019 08:34
[2019-12-23] MEDS: IRON SUCROSE COMPLEX 200 MG in IV NORMAL SALINE 100ML 100 ML IV SCH (09:45)
--- NOTE | 2019-12-23 10:46 | PDOC ---
[facility] PROGRESS NOTE Date of Service DOS: DATE: 12/23/19 TIME: 10:32 Chief Complaint Chief Complaint Claudication Adenocarcinoma of colon - s/p resection on 12/20/2019 CAD, stable Acute blood loss anemia History of Present Illness History of Present Illness 12/23/2019 Postop Day 3 - colectomy Patient seen and examined Discussed with RN Reviewed chart Patient wants the NGT out so he can eat Still waiting for bowel movement, gas Discussed with family member Ordered procalamine Scheduled for abd Xray this morning 12/22/2019 Postop Day 2 - colectomy Patient seen and examined Discussed with RN Discussed with case management Reviewed chart Covid negative as of 12/19/2019 Hx of CAD with 4 stent placement in 10/2019, recently quit smoking two months ago. Patient was sitting with NAD, with tirofiban and iron sucrose being infused, Dilotid UNIT AIDE, Mistry catheter bedside draining, NG suction set to LIS Hope to discharge per surgery Mr Mejia is a 64 y/o male w/ h/o CAD s/p stent(s) placement in 10/2019 on Brilinta and ASA and h/o PVD w/ RLE pain here for femoral runoff which was cancelled due to anemia. Denies hematemesis, hematochezia, and melena. Rare heartburn after eating [place] food, maybe takes Rolaids sometimes. No dysphagia, n/v, abd pain, diarrhea, or constipation. Has lost some weight after he quit drinking soda. No previous EGD or colonoscopy, maybe had an UGI once. No GB, liver, pancreas, or PUD history. Rare NSAIDs. 12/14: Hb 6.2 s/p 2u PRBC. 12/15: Patient's hemoglobin remained stable at 8.2. No further bleeding anywh ere. 12/16:Patient's hemoglobin remained stable. No bloody stools. 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 12/18: Patient evaluated at bedside. Discussed results of his colonoscopy, showing near obstructing colon cancer. 12/19: To colectomy today. WBC 13.8, Hb 6.9 today. He has had no bowel movement no vomiting. He is asking for water or ice chips. Pain is well controlled on his UNIT AIDE. Wants to get up. No chest pain shortness of breath or lower extremity pain. Vitals/I&O Vitals/I&O: Vital Signs Date Time Temp Pulse Resp B/P (MAP) Pulse Ox O2 Delivery O2 Flow Rate FiO2 12/23/19 07:54 99 Nasal Cannula 3.0 12/23/19 07:00 97.6 83 21 140/66 (90) 97.6 I & O 12/22/19 12/22/19 12/23/19 15:00 23:00 07:00 Intake Total 30 ml 90 ml Output Total 400 ml 600 ml 1100 ml Balance -400 ml -570 ml -1010 ml Physical Exam Physical Exam: General: No acute distress Heart: Regular rate Abdomen: Normal bowel sounds Extremities: No cyanosis General: Alert, Cooperative, mild distress, Other (NG tube in place) Heart: Regular rate, No murmurs Lungs: Clear Abdomen: Normal bowel sounds, Soft, Other (Mild incisional tenderness wounds clean dry and intact) Extremities: No clubbing Skin: No rashes Labs Labs: Laboratory Tests Test 12/23/19 04:00 White Blood Count 13.0 x10^3/uL (4.0-11.0) Red Blood Count 4.27 x10^6/uL (4.30-5.70) Hemoglobin 8.9 g/dL (13.0-17.5) Hematocrit 29.4 % (39.0-53.0) Mean Corpuscular Volume 69 fL (79-100) Mean Corpuscular Hemoglobin 21 pg (25-35) Mean Corpuscular Hemoglobin Concent 30 g/dL (31-37) Red Cell Distribution Width 25.6 % (11.5-14.5) Platelet Count 395 x10^3/uL (140-400) Neutrophils (%) (Auto) 75 % (31-73) Lymphocytes (%) (Auto) 12 % (24-48) Monocytes (%) (Auto) 8 % (0-9) Eosinophils (%) (Auto) 5 % (0-3) Basophils (%) (Auto) 1 % (0-3) Neutrophils # (Auto) 9.7 x10^3/uL (1.8-7.7) Lymphocytes # (Auto) 1.6 x10^3/uL (1.0-4.8) Monocytes # (Auto) 1.0 x10^3/uL (0.0-1.1) Eosinophils # (Auto) 0.7 x10^3/uL (0.0-0.7) Basophils # (Auto) 0.1 x10^3/uL (0.0-0.2) Sodium Level 141 mmol/L (136-145) Potassium Level 3.8 mmol/L (3.5-5.1) Chloride Level 103 mmol/L (98-107) Carbon Dioxide Level 27 mmol/L (21-32) Anion Gap 11 (6-14) Blood Urea Nitrogen 13 mg/dL (8-26) Creatinine 0.8 mg/dL (0.7-1.3) Estimated GFR (Cockcroft-Gault) 98.0 Glucose Level 93 mg/dL (70-99) Calcium Level 8.2 mg/dL (8.5-10.1) Review of Systems Review of Systems: C/o pain Denies weakness Assessment and Plan Assessmemt and Plan Assessment Claudication Adenocarcinoma of colon - s/p resection on 12/20/2019 CAD, stable Acute blood loss anemia Iron deficiency anemia Plan Wound care Hope to dc Dilotid UNIT AIDE Hope to dc Mistry Continue IV Fe PRN Hope to advance diet when NGT is removed per surgeon Ordered procalamine Still waiting on bowel movement Trend labs, Hgb 8.9 today (dropped to 8.3 yesterday) Cardiac monitoring PT/OT Home meds PRN DVT prophylaxis Full code After surgery recovery, patient will need PET Hope to discharge per surgery Comment Review of Relevant I have reviewed the following items christi (where applicable) has been applied. Medications: Current Medications Medications (Trade) Dose Ordered Sig/Sheila Route PRN Reason Start Time Stop Time Status Last Admin Dose Admin Famotidine (Pepcid Vial) 20 mg QHS IVP 12/22/19 21:00 12/22/19 22:05 Metoprolol Tartrate (Lopressor Vial) 5 mg Q6HRS IVP 12/22/19 12:00 12/23/19 05:45 Justifications for Admission Other Justification DIOGENES DA SILVA III DO Dec 23, 2019 10:46
[2019-12-23] MEDS: AMINO AC 3%/ELECTROLYTE/GLYCER 1,000 ML IV SCH ×2 (10:54→21:49)
[2019-12-23 11:00] VITALS: BP 95/56
--- NOTE | 2019-12-23 11:40 | RAD ---
ABDOMEN SUPINE UPRIGHT 12/23/2019 8:34 AM INDICATION: Small bowel obstruction versus ileus COMPARISON: None available. TECHNIQUE: Upright and supine views of abdomen are provided. FINDINGS/ IMPRESSION: There is residual free intraperitoneal air which may be expected status post hemicolectomy. Critical results were discussed with the patient's nurse Sarah at the time of image interpretation at 11:36 AM on 12/23/2019. Surgical drain appears to be present along the midline to the right of the lumbar spine pedicles. Nasogastric tube is identified with the side port projecting immediately distal to the gastroesophageal junction. Reticular interstitial changes are identified at the lung bases which may represent subsegmental atelectasis. Trace right pleural effusion. There are no dilated loops of small or large bowel. Paucity of small bowel gas may limit evaluation. No suspicious osseous normality. Vascular calcifications are present Electronically signed by: Mckenzie Montoya MD (12/23/2019 11:37 AM) QUIQUE
[2019-12-23] MEDS: HYDROmorphone 12mg/30ml PCA 30 ML IV PRN (12:12)
--- NOTE | 2019-12-23 14:25 | NUR ---
Pt dislodge and accidentally removed NG tube from left nare. Pt educated on the need for replacement NG tube. This nurse attempted to replace NG into left nare but patient pulled back and made a statement that he wasn't sure if he could do it. Pt stated "I don't want to get you into trouble but I don't know if I can do this". Pt requesting physician to be called and not have the NG replaced. Call placed to Dr. Nuno, awaiting return phone call.
--- NOTE | 2019-12-23 14:34 | NUR ---
Phone call returned from surgeon. Physician okay with NG tube out. Patient educated that without the tube, there is potential for getting sick. Pt verbalized understanding. Will continue to monitor.
[2019-12-23 15:00] VITALS: BP 154/76
[2019-12-23] MEDS: IV NORMAL SALINE 1000ML BAG 1,000 ML IV SCH (15:15)
[2019-12-23 19:40] VITALS: BP 134/65
[2019-12-23] MEDS: ATORVASTATIN CALCIUM 40 MG TABLET. PO SCH (21:00)
[2019-12-23] MEDS: ENOXAPARIN 40 MG/0.4 ML SYRINGE. SQ SCH (21:48)
[2019-12-23] MEDS: FAMOTIDINE 20 MG/2 ML VIAL IVP SCH (21:48)
[2019-12-23 23:25] VITALS: BP 129/67
[2019-12-24] MEDS: METOPROLOL TARTRATE 5 MG/5 ML VIAL. IVP SCH ×5 (01:09→23:54)
[2019-12-24] MEDS: TIROFIBAN 5MG -0.9% NS 100 ML IV PRN ×3 (01:09→17:08)
[2019-12-24 04:15] VITALS: BP 133/72
[2019-12-24 07:00] VITALS: BP 142/72
[2019-12-24] MEDS: ALBUTEROL SULFATE 2.5 MG/3 ML NEBU. NEB SCH ×3 (08:00→16:00)
[2019-12-24] MEDS: BUDESONIDE 0.5 MG/2 ML NEBU. NEB SCH ×2 (08:00→20:15)
--- NOTE | 2019-12-24 08:37 | PDOC ---
SURGICAL PROGRESS NOTE DATE: 12/24/19 TIME: 08:36 Subjective Patient doing well has still not passed flatus or had a bowel movement denies any nausea tolerating ice chips and water Vital Signs Vital Signs Date Time Temp Pulse Resp B/P (MAP) Pulse Ox O2 Delivery O2 Flow Rate FiO2 12/24/19 08:07 96 Nasal Cannula 4.0 12/24/19 07:00 98.3 79 20 142/72 (95) 98.3 I&O Intake and Output 12/24/19 07:00 Intake Total 3580 ml Output Total 1000 ml Balance 2580 ml Intake Oral 350 ml IV Total 3230 ml Output Urine Total 600 ml Gastric Drainage Total 400 ml # Voids 1 PATIENT HAS A SALAS: No General: Alert, Oriented X3, Cooperative, mild distress Abdomen: Normal bowel sounds, Soft, Other (Mild incisional tenderness wound clean dry and intact) Labs Laboratory Tests Test 12/23/19 04:00 White Blood Count 13.0 x10^3/uL (4.0-11.0) Red Blood Count 4.27 x10^6/uL (4.30-5.70) Hemoglobin 8.9 g/dL (13.0-17.5) Hematocrit 29.4 % (39.0-53.0) Mean Corpuscular Volume 69 fL (79-100) Mean Corpuscular Hemoglobin 21 pg (25-35) Mean Corpuscular Hemoglobin Concent 30 g/dL (31-37) Red Cell Distribution Width 25.6 % (11.5-14.5) Platelet Count 395 x10^3/uL (140-400) Neutrophils (%) (Auto) 75 % (31-73) Lymphocytes (%) (Auto) 12 % (24-48) Monocytes (%) (Auto) 8 % (0-9) Eosinophils (%) (Auto) 5 % (0-3) Basophils (%) (Auto) 1 % (0-3) Neutrophils # (Auto) 9.7 x10^3/uL (1.8-7.7) Lymphocytes # (Auto) 1.6 x10^3/uL (1.0-4.8) Monocytes # (Auto) 1.0 x10^3/uL (0.0-1.1) Eosinophils # (Auto) 0.7 x10^3/uL (0.0-0.7) Basophils # (Auto) 0.1 x10^3/uL (0.0-0.2) Sodium Level 141 mmol/L (136-145) Potassium Level 3.8 mmol/L (3.5-5.1) Chloride Level 103 mmol/L (98-107) Carbon Dioxide Level 27 mmol/L (21-32) Anion Gap 11 (6-14) Blood Urea Nitrogen 13 mg/dL (8-26) Creatinine 0.8 mg/dL (0.7-1.3) Estimated GFR (Cockcroft-Gault) 98.0 Glucose Level 93 mg/dL (70-99) Calcium Level 8.2 mg/dL (8.5-10.1) Assessment/Plan Status post colon resection awaiting return of bowel function Abdominal x-ray shows normal bowel gas pattern We will advance diet to clear liquids Justicifation of Admission Dx: Justifications for Admission: Justification of Admission Dx: Yes MS: Acute STEMI TULIO SHAIKH MD Dec 24, 2019 08:37
[2019-12-24] MEDS: MULTIVITAMIN with MINERAL TABLET. PO SCH (08:52)
[2019-12-24] MEDS: METOPROLOL SUCC 24HR ER 50 MG TAB.ER.24H. PO SCH (08:52)
[2019-12-24] MEDS: LOSARTAN POTASSIUM 50 MG TABLET. PO SCH (08:53)
[2019-12-24] MEDS: IRON SUCROSE COMPLEX 200 MG in IV NORMAL SALINE 100ML 100 ML IV SCH (09:09)
--- NOTE | 2019-12-24 10:03 | PDOC ---
[employer] PROGRESS NOTE Date of Service DOS: DATE: 12/24/19 TIME: 09:57 Chief Complaint Chief Complaint Claudication Adenocarcinoma of colon - s/p resection on 12/20/2019 CAD, stable Acute blood loss anemia History of Present Illness History of Present Illness 12/24/2019 Postop Day 4 - colectomy Patient seen and examined NGT has been removed Patient was seen eating Patient in NAD Discussed with RN Reviewed chart 12/23/2019 Postop Day 3 - colectomy Patient seen and examined Discussed with RN Reviewed chart Patient wants the NGT out so he can eat Still waiting for bowel movement, gas Discussed with family member Ordered procalamine Scheduled for abd Xray this morning 12/22/2019 Postop Day 2 - colectomy Patient seen and examined Discussed with RN Discussed with case management Reviewed chart Covid negative as of 12/19/2019 Hx of CAD with 4 stent placement in 10/2019, recently quit smoking two months ag o. 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 Denies hematemesis, hematochezia, and melena. Rare heartburn after eating Sami food, maybe takes Rolaids sometimes. No dysphagia, n/v, abd pain, diarrhea, or constipation. Has lost some weight after he quit drinking soda. No previous EGD or colonoscopy, maybe had an UGI once. No GB, liver, pancreas, or PUD history. Rare NSAIDs. 12/14: Hb 6.2 s/p 2u PRBC. 12/15: Patient's hemoglobin remained stable at 8.2. No further bleeding anywhere. 12/16:Patient's hemoglobin remained stable. No bloody stools. 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 12/18: Patient evaluated at bedside. Discussed results of his colonoscopy, showing near obstructing colon cancer. 12/19: To colectomy today. WBC 13.8, Hb 6.9 today. He has had no bowel movement no vomiting. He is asking for water or ice chips. Pain is well controlled on his NEWS OPERATIONS MANAGER. Wants to get up. No chest pain shortness of breath or lower extremity pain. Vitals/I&O Vitals/I&O: Vital Signs Date Time Temp Pulse Resp B/P (MAP) Pulse Ox O2 Delivery O2 Flow Rate FiO2 12/24/19 08:07 96 Nasal Cannula 4.0 12/24/19 07:00 98.3 79 20 142/72 (95) 98.3 I & O 12/23/19 12/23/19 12/24/19 15:00 23:00 07:00 Intake Total 1050 ml 250 ml 2280 ml Output Total 400 ml 300 ml 300 ml Balance 650 ml -50 ml 1980 ml Physical Exam Physical Exam: General: No acute distress Heart: Regular rate Abdomen: Normal bowel sounds Extremities: No cyanosis General: Alert, Oriented X3, Cooperative, No acute distress Heart: Regular rate, No murmurs Lungs: Clear Abdomen: Normal bowel sounds, Soft, Other (Mild incisional tenderness wound clean dry and intact) Extremities: No clubbing Skin: No rashes Review of Systems Review of Systems: Patient denies nausea. Patient denies weakness. Assessment and Plan Assessmemt and Plan Assessment Adenocarcinoma of colon CAD, stable Acute blood loss anemia Hyperlipidemia Plan Continue clear liquid diet Continue IV tirofiban, hope to transition back to PO ticagrelor Cardiac monitoring Continue PPN Home meds Full code PT OT Comment Review of Relevant I have reviewed the following items christi (where applicable) has been applied. Medications: Current Medications Medications (Trade) Dose Ordered Sig/Sheila Route PRN Reason Start Time Stop Time Status Last Admin Dose Admin Amino Acids/ Glycerin/ Electrolytes 1,000 ml @ 75 mls/hr [id number] IV 12/23/19 10:30 12/23/19 21:49 Justifications for Admission Other Justification DIOGENES AD SILVA III DO Dec 24, 2019 10:03
[2019-12-24 10:57] VITALS: BP 122/70
[2019-12-24] MEDS: AMINO AC 3%/ELECTROLYTE/GLYCER 1,000 ML IV SCH (13:28)
[2019-12-24 15:00] VITALS: BP 136/80
[2019-12-24] MEDS: IV NORMAL SALINE 1000ML BAG 1,000 ML IV SCH (15:15)
[2019-12-24] MEDS ORDERED: ALBUTEROL SULFATE 2.5 MG/3 ML NEBU. NEB PRN (18:00)
[2019-12-24 19:41] VITALS: BP 125/69
[2019-12-24] MEDS: FAMOTIDINE 20 MG/2 ML VIAL IVP SCH (20:53)
[2019-12-24] MEDS: ENOXAPARIN 40 MG/0.4 ML SYRINGE. SQ SCH (20:53)
[2019-12-24] MEDS: ATORVASTATIN CALCIUM 40 MG TABLET. PO SCH (20:53)
[2019-12-24 22:38] VITALS: BP 125/65
[2019-12-25] MEDS: TIROFIBAN 5MG -0.9% NS 100 ML IV PRN (01:33)
[2019-12-25] MEDS: AMINO AC 3%/ELECTROLYTE/GLYCER 1,000 ML IV SCH ×2 (01:33→15:50)
[2019-12-25 03:36] VITALS: BP 127/68
[2019-12-25] MEDS: METOPROLOL TARTRATE 5 MG/5 ML VIAL. IVP SCH (06:02)
[2019-12-25 07:00] VITALS: BP 130/64
[2019-12-25] MEDS: BUDESONIDE 0.5 MG/2 ML NEBU. NEB SCH ×2 (07:41→20:00)
--- NOTE | 2019-12-25 08:37 | PDOC ---
SURGICAL PROGRESS NOTE DATE: 12/25/19 TIME: 08:36 Subjective Patient doing well really wants to go home tolerating clear liquid diet passing flatus Vital Signs Vital Signs Date Time Temp Pulse Resp B/P (MAP) Pulse Ox O2 Delivery O2 Flow Rate FiO2 12/25/19 07:00 97.7 79 16 130/64 (86) 98 Nasal Cannula 4.0 97.7 I&O Intake and Output 12/25/19 07:00 Intake Total 800 ml Output Total 650 ml Balance 150 ml Intake Oral 600 ml IV Total 200 ml Output Urine Total 650 ml PATIENT HAS A SALAS: No General: Alert, Oriented X3, Cooperative, No acute distress Abdomen: Normal bowel sounds, Soft, No tenderness, Other (Wounds clean dry and intact) Assessment/Plan Status post colon resection, bowel function returning we will advance diet to full liquids start p.o. medications Justicifation of Admission Dx: Justifications for Admission: Justification of Admission Dx: Yes [place]: Acute STEMI TULIO SHAIKH MD Dec 25, 2019 08:37
[2019-12-25] MEDS ORDERED: HYDROcodone/APAP 5/325MG 1 TAB TABLET PO PRN ×2 (08:45)
[2019-12-25] MEDS: MULTIVITAMIN with MINERAL TABLET. PO SCH (08:53)
[2019-12-25] MEDS: CLOPIDOGREL BISULFATE 75 MG TABLET PO SCH (08:53)
[2019-12-25] MEDS: LOSARTAN POTASSIUM 50 MG TABLET. PO SCH (08:53)
[2019-12-25] MEDS: METOPROLOL SUCC 24HR ER 50 MG TAB.ER.24H. PO SCH (08:54)
[2019-12-25] MEDS: IRON SUCROSE COMPLEX 200 MG in IV NORMAL SALINE 100ML 100 ML IV SCH (08:57)
--- NOTE | 2019-12-25 12:03 | PDOC ---
PROGRESS NOTES Date of Service: DATE: 12/25/19 TIME: 12:01 Chief Complaint Chief Complaint Claudication Adenocarcinoma of colon - s/p resection on 12/20/2019 CAD, stable Acute blood loss anemia as expected with no need for transfusion at the present time History of peripheral vascular disease Plan Advance diet as per e business consultant Continue with current treatment plan and oral medication If he continues to do well hopefully will be able to discharge in the next 24 hours History of Present Illness History of Present Illness 12/25/2019 Postop day 5 status post colectomy Patient hoping to be discharged home today No acute distress Discussed with nursing staff and family members at bedside Plan of care explained in detail 12/24/2019 Postop Day 4 - colectomy Patient seen and examined NGT has been removed Patient was seen eating Patient in NAD Discussed with RN Reviewed chart 12/23/2019 Postop Day 3 - colectomy Patient seen and examined Discussed with RN Reviewed chart Patient wants the NGT out so he can eat Still waiting for bowel movement, gas Discussed with family member Ordered procalamine Scheduled for abd Xray this morning 12/22/2019 Postop Day 2 - colectomy Patient seen and examined Discussed with RN Discussed with case management Reviewed chart Covid negative as of 12/19/2019 Hx of CAD with 4 stent placement in 10/2019, recently quit smoking two months ago. 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 Denies hematemesis, hematochezia, and melena. Rare heartburn after eating Faroese food, maybe takes Rolaids sometimes. No dysphagia, n/v, abd pain, diarrhea, or constipation. Has lost some weight after he quit drinking soda. No previous EGD or colonoscopy, maybe had an UGI once. No GB, liver, pancreas, or PUD history. Rare NSAIDs. 12/14: Hb 6.2 s/p 2u PRBC. 12/15: Patient's hemoglobin remained stable at 8.2. No further bleeding anywhere. 12/16:Patient's hemoglobin remained stable. No bloody stools. 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 12/18: Patient evaluated at bedside. Discussed results of his colonoscopy, showing near obstructing colon cancer. 12/19: To colectomy today. WBC 13.8, Hb 6.9 today. He has had no bowel movement no vomiting. He is asking for water or ice chips. Pain is well controlled on his SPORTS MEDICINE TRAINER. Wants to get up. No chest pain shortness of breath or lower extremity pain. Vitals Vitals Vital Signs Date Time Temp Pulse Resp B/P (MAP) Pulse Ox O2 Delivery O2 Flow Rate FiO2 12/25/19 08:54 79 130/64 12/25/19 08:00 Nasal Cannula 3.0 12/25/19 07:00 97.7 16 98 97.7 Physical Exam Physical Exam General: No acute distress Heart: Regular rate Abdomen: Normal bowel sounds Extremities: No cyanosis General: Alert, Oriented X3, Cooperative, No acute distress Heart: Regular rate, No murmurs Lungs: Clear Abdomen: Normal bowel sounds, Soft, No tenderness, Other (Wounds clean dry and intact) Extremities: No clubbing Skin: No rashes Comment Review of Relevant I have reviewed the following items christi (where applicable) has been applied. Medications Current Medications Iodixanol (Visipaque 320) 100 ml STK-MED ONCE .ROUTE ; Start 12/15/19 at 07:47; Stop 12/15/19 at 07:47; Status DC Lidocaine HCl (Lidocaine 1% 20ml Vial) 20 ml STK-MED ONCE .ROUTE ; Start 12/15/19 at 07:47; Stop 12/15/19 at 07:47; Status DC Heparin Sodium/ Sodium Chloride 0 ml @ As Directed STK-MED ONCE .ROUTE ; Start 12/15/19 at 07:47; Stop 12/15/19 at 07:48; Status DC Sodium Chloride 1,000 ml @ 60 mls/hr [id number] IV Last administered on 12/15/19at 16:04; Start 12/15/19 at 08:49; Stop 12/16/19 at 08:48; Status DC Clopidogrel Bisulfate (Plavix) 75 mg DAILYWBKFT PO Last administered on 12/16/19at 08:17; Start 12/16/19 at 08:00; Stop 12/17/19 at 07:59; Status DC Pantoprazole Sodium (Protonix) 40 mg DAILYAC PO Last administered on 12/16/19at 08:19; Start 12/16/19 at 07:30; Stop 12/17/19 at 07:29; Status DC Atorvastatin Calcium (Lipitor) 40 mg QHS PO Last administered on 12/17/19at 21:28; Start 12/15/19 at 21:00; Stop 12/18/19 at 13:55; Status DC Losartan Potassium (Cozaar) 50 mg DAILY PO Last administered on 12/25/19at 08:53; Start 12/16/19 at 09:00 Metoprolol Succinate (Toprol Xl) 50 mg DAILY PO Last administered on 12/18/19at 09:08; Start 12/16/19 at 09:00; Stop 12/18/19 at 13:54; Status DC Nitroglycerin (Nitrostat) 0.4 mg PRN Q5MIN PRN SL CHEST PAIN; Start 12/15/19 at 16:15 Non-Formulary Medication (Fluticasone/ Salmeterol (Advair 100-50 Diskus)) 1 puff BID IH ; Start 12/15/19 at 21:00; Status UNV Multivitamins (Thera M Plus) 1 tab DAILY PO Last administered on 12/25/19at 08:53; Start 12/16/19 at 09:00 Albuterol Sulfate (Ventolin Neb Soln) 2.5 mg RTQID NEB Last administered on 12/24/19at 08:00; Start 12/15/19 at 20:00; Stop 12/24/19 at 17:51; Status DC Budesonide (Pulmicort) 0.5 mg RTBID NEB Last administered on 12/24/19at 20:15; Start 12/15/19 at 20:00 Cyclobenzaprine HCl (Flexeril) 5 mg PRN QHS PRN PO MUSCLE SPASMS; Start 12/15/19 at 16:30 Furosemide (Lasix) 20 mg 1X ONCE IVP Last administered on 12/15/19at 18:38; Start 12/15/19 at 17:30; Stop 12/15/19 at 17:31; Status DC Magnesium Citrate (Citroma) 296 ml 1X ONCE PO Last administered on 12/17/19at 09:45; Start 12/17/19 at 09:00; Stop 12/17/19 at 09:01; Status DC Polyethylene Glycol (miraLAX Powder BULK BOTTLE) 238 gm 1X ONCE PO Last administered on 12/17/19at 15:13; Start 12/17/19 at 15:00; Stop 12/17/19 at 15:01; Status DC Bisacodyl (Dulcolax Tab) 20 mg 1X ONCE PO Last administered on 12/17/19at 14:14; Start 12/17/19 at 14:00; Stop 12/17/19 at 14:01; Status DC Ringer's Solution 1,000 ml @ 75 mls/hr [id number] IV Last administered on 12/18/19at 12:19; Start 12/18/19 at 12:30; Stop 12/18/19 at 20:00; Status DC Propofol (Diprivan) 200 mg STK-MED ONCE IV ; Start 12/18/19 at 12:31; Stop 12/18/19 at 12:31; Status DC Lidocaine HCl (Lidocaine Pf 2% Vial) 5 ml STK-MED ONCE .ROUTE ; Start 12/18/19 at 12:31; Stop 12/18/19 at 12:31; Status DC Ephedrine Sulfate (ePHEDrine PF IN SALINE SYRINGE) 50 mg STK-MED ONCE IV ; Start 12/18/19 at 12:33; Stop 12/18/19 at 12:33; Status DC Ephedrine Sulfate (Akovaz) 50 mg STK-MED ONCE .ROUTE ; Start 12/18/19 at 12:34; Stop 12/18/19 at 12:34; Status DC Metoprolol Succinate (Toprol Xl) 50 mg DAILY PO Last administered on 12/25/19at 08:54; Start 12/19/19 at 09:00 Atorvastatin Calcium (Lipitor) 40 mg QHS PO Last administered on 12/21/19at 21:57; Start 12/18/19 at 21:00 Iohexol (Omnipaque 300 Mg/ml) 75 ml 1X ONCE IV Last administered on 12/18/19at 16:02; Start 12/18/19 at 15:45; Stop 12/18/19 at 15:46; Status DC Iohexol (Omnipaque 240 Mg/ml) 50 ml 1X ONCE PO Last administered on 12/18/19at 16:02; Start 12/18/19 at 15:45; Stop 12/18/19 at 15:46; Status DC Info (CONTRAST GIVEN -- Rx MONITORING) 1 each PRN DAILY PRN MC SEE COMMENTS; Start 12/18/19 at 15:45; Stop 12/20/19 at 15:44; Status DC Ondansetron HCl (Zofran) 4 mg PRN Q6HRS PRN IV NAUSEA/VOMITING; Start 12/20/19 at 07:00; Stop 12/21/19 at 07:00; Status DC Fentanyl Citrate (Fentanyl 2ml Vial) 25 mcg PRN Q5MIN PRN IV MILD PAIN 1-3; Start 12/20/19 at 07:00; Stop 12/21/19 at 07:00; Status DC Fentanyl Citrate (Fentanyl 2ml Vial) 50 mcg PRN Q5MIN PRN IV MODERATE TO SEVERE PAIN; Start 12/20/19 at 07:00; Stop 12/21/19 at 07:00; Status DC Morphine Sulfate (Morphine Sulfate) 1 mg PRN Q10MIN PRN IV SEVERE PAIN 7-10; Start 12/20/19 at 07:00; Stop 12/21/19 at 07:00; Status DC Ringer's Solution 1,000 ml @ 30 mls/hr Q24H IV ; Start 12/20/19 at 07:00; Stop 12/20/19 at 18:59; Status DC Lidocaine HCl (Xylocaine-Mpf 1% 2ml Vial) 2 ml PRN 1X PRN ID PRIOR TO IV START; Start 12/20/19 at 07:00; Stop 12/21/19 at 07:00; Status DC Hydromorphone HCl (Dilaudid) 0.5 mg PRN Q10MIN PRN IV SEV PAIN, Second choice; Start 12/20/19 at 07:00; Stop 12/21/19 at 07:00; Status DC Prochlorperazine Edisylate (Compazine) 5 mg PACU PRN PRN IV NAUSEA, MRX1; Start 12/20/19 at 07:00; Stop 12/21/19 at 07:00; Status DC Cefazolin Sodium/ Dextrose 50 ml @ 100 mls/hr 1X PREOP PRN IV PRIOR TO PROCEDURE Last administered on 12/20/19at 10:44; Start 12/20/19 at 06:00; Stop 12/20/19 at 18:00; Status DC Metronidazole 100 ml @ 100 mls/hr 1X PREOP PRN IV PRIOR TO PROCEDURE Last administered on 12/20/19at 10:15; Start 12/20/19 at 06:00; Stop 12/20/19 at 18:00; Status DC Bupivacaine HCl/ Epinephrine Bitart (Sensorcain-Epi 0.5%-1:[id number] Mpf) [address] K-MED ONCE .ROUTE ; Start 12/20/19 at 09:10; Stop 12/20/19 at 09:10; Status DC Rocuronium [place] (Zemuron) 100 mg STK-MED ONCE .ROUTE ; Start 12/20/19 at 09:25; Stop 12/20/19 at 09:25; Status DC Fentanyl Citrate (Fentanyl 2ml Vial) 100 mcg STK-MED ONCE .ROUTE ; Start 12/20/19 at 09:25; Stop 12/20/19 at 09:25; Status DC Midazolam HCl (Versed) 2 mg STK-MED ONCE .ROUTE ; Start 12/20/19 at 09:25; Stop 12/20/19 at 09:26; Status DC Desflurane (Suprane) 90 ml STK-MED ONCE IH ; Start 12/20/19 at 09:25; Stop 12/20/19 at 09:26; Status DC Propofol (Diprivan) 200 mg STK-MED ONCE IV ; Start 12/20/19 at 09:26; Stop 12/20/19 at 09:26; Status DC Dexamethasone Sodium Phosphate (Decadron) 4 mg STK-MED ONCE .ROUTE ; Start 12/20/19 at 09:26; Stop 12/20/19 at 09:26; Status DC Ondansetron HCl (Zofran) 4 mg STK-MED ONCE .ROUTE ; Start 12/20/19 at 09:26; Stop 12/20/19 at 09:26; Status DC Lidocaine HCl (Lidocaine Pf 2% Vial) 5 ml STK-MED ONCE .ROUTE ; Start 12/20/19 at 09:26; Stop 12/20/19 at 09:26; Status DC Ephedrine Sulfate (Akovaz) 50 mg STK-MED ONCE .ROUTE ; Start 12/20/19 at 11:40; Stop 12/20/19 at 11:41; Status DC Phenylephrine HCl (PHENYLEPHRINE in 0.9% NACL PF) 1 mg STK-MED ONCE IV ; Start 12/20/19 at 11:48; Stop 12/20/19 at 11:49; Status DC Hydromorphone HCl (Dilaudid) 2 mg STK-MED ONCE .ROUTE ; Start 12/20/19 at 13:22; Stop 12/20/19 at 13:22; Status DC Neostigmine [place] (Neostigmine Methylsulfate) 5 mg STK-MED ONCE .ROUTE ; Start 12/20/19 at 13:23; Stop 12/20/19 at 13:23; Status DC Glycopyrrolate (Robinul) 1 mg STK-MED ONCE .ROUTE ; Start 12/20/19 at 13:23; Stop 12/20/19 at 13:23; Status DC Rocuronium [place] (Zemuron) 50 mg STK-MED ONCE .ROUTE ; Start 12/20/19 at 14:15; Stop 12/20/19 at 14:15; Status DC Phenylephrine HCl (PHENYLEPHRINE in 0.9% NACL PF) 1 mg STK-MED ONCE IV ; Start 12/20/19 at 15:03; Stop 12/20/19 at 15:03; Status DC Albumin Human 500 ml @ As Directed STK-MED ONCE IV ; Start 12/20/19 at 15:15; Stop 12/20/19 at 15:16; Status DC Naloxone HCl (Narcan) 0.4 mg PRN Q2MIN PRN IV SEE INSTRUCTIONS; Start 12/20/19 at 15:15; Stop 12/25/19 at 08:36; Status DC Sodium Chloride 1,000 ml @ 25 mls/hr Q24H IV Last administered on 12/22/19at 08:36; Start 12/20/19 at 15:15; Stop 12/25/19 at 08:36; Status DC Hydromorphone HCl 30 ml @ 0 mls/hr CONT PRN PRN IV PER PROTOCOL Last administered on 12/23/19at 12:12; Start 12/20/19 at 15:15; Stop 12/25/19 at 08:36; Status DC Enoxaparin Sodium (Lovenox 40mg Syringe) 40 mg Q24H SQ Last administered on 12/24/19at 20:53; Start 12/20/19 at 21:00 Albumin Human 500 ml @ 125 mls/hr 1X ONCE IV Last administered on 12/20/19at 16:10; Start 12/20/19 at 16:00; Stop 12/20/19 at 19:59; Status DC Phenol (Chloraseptic) 1 spray PRN Q2HR PRN PO SORE THROAT; Start 12/21/19 at 09:00 Iron Sucrose 200 mg/Sodium Chloride 110 ml @ 55 mls/hr DAILY IV ; Start 12/21/19 at 12:30; Stop 12/21/19 at 12:24; Status DC Iron Sucrose 200 mg/Sodium Chloride 110 ml @ 55 mls/hr DAILY IV Last administered on 12/25/19at 08:57; Start 12/21/19 at 14:00; Stop 12/25/19 at 10:59; Status DC Tirofiban/Sodium Chloride 100 ml @ 0 mls/hr CONT PRN IV SEE COMMENTS Last administered on 12/25/19at 01:33; Start 12/21/19 at 16:00; Stop 12/25/19 at 08:48; Status DC Famotidine (Pepcid Vial) 20 mg QHS IVP Last administered on 12/24/19at 20:53; Start 12/22/19 at 21:00; Stop 12/25/19 at 08:53; Status DC Metoprolol Tartrate (Lopressor Vial) 5 mg Q6HRS IVP Last administered on 12/25/19at 06:02; Start 12/22/19 at 12:00; Stop 12/25/19 at 08:55; Status DC Amino Acids/ Glycerin/ Electrolytes 1,000 ml @ 75 mls/hr [id number] IV Last administered on 12/24/19at 13:28; Start 12/23/19 at 10:30 Albuterol Sulfate (Ventolin Neb Soln) 2.5 mg PRN QID PRN NEB SHORTNESS OF BREATH; Start 12/24/19 at 18:00 Acetaminophen/ Hydrocodone Bitart (Lortab 5/325) 1 tab PRN Q4HRS PRN PO MILD- MODERATE PAIN; Start 12/25/19 at 08:45 Acetaminophen/ Hydrocodone Bitart (Lortab 5/325) 2 tab PRN Q4HRS PRN PO SEVERE PAIN; Start 12/25/19 at 08:45 Clopidogrel Bisulfate (Plavix) 75 mg DAILYWBKFT PO Last administered on 12/25/19at 08:53; Start 12/25/19 at 09:30 Famotidine (Pepcid) 20 mg QHS PO ; Start 12/25/19 at 21:00 Active Scripts Active Metoprolol Succinate ( Xl ) (Metoprolol Succinate) 25 Mg Tab.er.24h 50 Mg PO DAILY 30 Days Nitrostat (Nitroglycerin) 0.4 Mg Tab.subl 0.4 Mg SL PRN Q5MIN PRN 30 Days Atorvastatin Calcium 20 Mg Tablet 40 Mg PO QHS 30 Days Reported Amlodipine Besylate 10 Mg Tablet 1 Tab PO DAILY Daily Vitamin (Multivitamin) 1 Each Tablet 1 Each PO Advair 100-50 Diskus (Fluticasone/Salmeterol) 1 Each Disk.w.dev 1 Puff IH BID Aspirin 81 Mg Tab.chew 1 Tab PO DAILY Losartan Potassium 50 Mg Tablet 1 Tab PO DAILY Vitals/I & O Vital Sign - Last 24 Hours 12/24/19 12/24/19 12/24/19 12/24/19 13:27 15:00 18:52 19:41 Temp 98.0 98.4 98.0 98.4 Pulse 80 79 79 83 Resp 21 18 B/P (MAP) 122/70 136/80 (98) 136/80 125/69 (87) Pulse Ox 97 96 O2 Delivery Nasal Cannula Nasal Cannula O2 Flow Rate 2.0 4.0 12/24/19 12/24/19 12/24/19 12/25/19 20:00 22:38 23:54 03:36 Temp 98.2 98.1 98.2 98.1 Pulse 83 83 80 Resp 18 16 B/P (MAP) 125/65 (85) 125/65 127/68 (87) Pulse Ox 98 98 O2 Delivery Nasal Cannula Nasal Cannula Nasal Cannula O2 Flow Rate 4.0 4.0 4.0 12/25/19 12/25/19 12/25/19 12/25/19 06:02 07:00 08:00 08:53 Temp 97.7 97.7 Pulse 80 79 79 Resp 16 B/P (MAP) 127/68 130/64 (86) 130/64 Pulse Ox 98 O2 Delivery Nasal Cannula Nasal Cannula O2 Flow Rate 4.0 3.0 12/25/19 08:54 Pulse 79 B/P (MAP) 130/64 Intake and Output 12/24/19 12/24/19 12/25/19 15:00 23:00 07:00 Intake Total 300 ml 300 ml 200 ml Output Total 200 ml 250 ml 200 ml Balance 100 ml 50 ml 0 ml Justicifation of Admission Dx: Justifications for Admission: Justification of Admission Dx: Yes [place]: Acute STEMI SONDRA BURDICK MD Dec 25, 2019 12:03
--- NOTE | 2019-12-25 12:43 | PDOC ---
G I PROGRESS NOTE Subjective No complaints. NG our. Stooling and eating w/o issue. Objective Operative path pending. Physical Exam Lungs clear. RRR Abdomen soft, bowel sounds present. Review of Relevant I have reviewed the following items christi (where applicable) has been applied. Vitals/I & O Vital Sign - Last 24 Hours 12/24/19 12/24/19 12/24/19 12/24/19 13:27 15:00 18:52 19:41 Temp 98.0 98.4 98.0 98.4 Pulse 80 79 79 83 Resp 21 18 B/P (MAP) 122/70 136/80 (98) 136/80 125/69 (87) Pulse Ox 97 96 O2 Delivery Nasal Cannula Nasal Cannula O2 Flow Rate 2.0 4.0 12/24/19 12/24/19 12/24/19 12/25/19 20:00 22:38 23:54 03:36 Temp 98.2 98.1 98.2 98.1 Pulse 83 83 80 Resp 18 16 B/P (MAP) 125/65 (85) 125/65 127/68 (87) Pulse Ox 98 98 O2 Delivery Nasal Cannula Nasal Cannula Nasal Cannula O2 Flow Rate 4.0 4.0 4.0 12/25/19 12/25/19 12/25/19 12/25/19 06:02 07:00 08:00 08:53 Temp 97.7 97.7 Pulse 80 79 79 Resp 16 B/P (MAP) 127/68 130/64 (86) 130/64 Pulse Ox 98 O2 Delivery Nasal Cannula Nasal Cannula O2 Flow Rate 4.0 3.0 12/25/19 08:54 Pulse 79 B/P (MAP) 130/64 Intake and Output 12/24/19 12/24/19 12/25/19 15:00 23:00 07:00 Intake Total 300 ml 300 ml 200 ml Output Total 200 ml 250 ml 200 ml Balance 100 ml 50 ml 0 ml Assessment Colon cancer, post-resection. Plan of Care Note Await path. CPM Justicifation of Admission Dx: Justifications for Admission: Justification of Admission Dx: Yes [place]: Acute STEMI ARDEN BOCANEGRA MD Dec 25, 2019 12:43
[2019-12-25 15:23] VITALS: BP 122/75
[2019-12-25 19:44] VITALS: BP 142/77
[2019-12-25] MEDS: ATORVASTATIN CALCIUM 40 MG TABLET. PO SCH (20:06)
[2019-12-25] MEDS: ENOXAPARIN 40 MG/0.4 ML SYRINGE. SQ SCH (20:07)
[2019-12-25] MEDS ORDERED: FAMOTIDINE 20 MG TABLET. PO SCH (21:00)
[2019-12-25 22:11] VITALS: BP 124/72
[2019-12-26 02:21] VITALS: BP 134/69
[2019-12-26] MEDS: AMINO AC 3%/ELECTROLYTE/GLYCER 1,000 ML IV SCH (04:01)
[2019-12-26 07:14] VITALS: BP 128/76
[2019-12-26] MEDS: BUDESONIDE 0.5 MG/2 ML NEBU. NEB SCH (07:32)
[2019-12-26] MEDS: MULTIVITAMIN with MINERAL TABLET. PO SCH (08:36)
[2019-12-26] MEDS: LOSARTAN POTASSIUM 50 MG TABLET. PO SCH (08:37)
[2019-12-26] MEDS: CLOPIDOGREL BISULFATE 75 MG TABLET PO SCH (08:37)
[2019-12-26] MEDS: METOPROLOL SUCC 24HR ER 50 MG TAB.ER.24H. PO SCH (08:37)
--- NOTE | 2019-12-26 09:59 | NUR ---
SS following up with discharge planning. SS reviewed pt chart and discussed with pt RN. Pt is currently requiring oxygen. Six minute walk being ordered. COVID19 negative. Pin Hedy drain to be removed today. Pt advancing to soft diet and if tolerated will possibly discharge to home. No PT needs. SS will continue to follow for discharge planning.
--- NOTE | 2019-12-26 10:02 | PDOC ---
SURGICAL PROGRESS NOTE DATE: 12/26/19 TIME: 10:01 Subjective wants to go home tolerating full liquids + flatus no pain, no n/v Vital Signs Vital Signs Date Time Temp Pulse Resp B/P (MAP) Pulse Ox O2 Delivery O2 Flow Rate FiO2 12/26/19 08:37 88 128/76 12/26/19 08:00 Room Air 4.0 12/26/19 07:14 99.0 18 97 99.0 I&O Intake and Output 12/26/19 07:00 Intake Total 1140 ml Output Total 200 ml Balance 940 ml Intake Oral 1140 ml Output Urine Total 200 ml # Voids 1 General: Alert, Oriented X3, Cooperative Abdomen: Soft, Other (incision c/d/i, no erythema ) Assessment/Plan advance to soft diet remove roosevelt prior to dc FU 2 weeks Justicifation of Admission Dx: Justifications for Admission: Justification of Admission Dx: Yes [place]: Acute STEMI LONI HUFF APRN Dec 26, 2019 10:02
[2019-12-26 10:29] VITALS: BP 117/67
[2019-12-26] MEDS ORDERED: CLOP75TA PO (11:04)
[2019-12-26] MEDS ORDERED: HYDR-2761 PO (11:04)
--- NOTE | 2019-12-26 11:11 | PDOC3 ---
Discharge Summary Visit Information Date of Admission: Dec 15, 2019 Date of Discharge: Dec 26, 2019 Admitting Diagnosis Comment: MARKED ANEMIA, POSSIBLE GI BLEED, MICROCYTIC CAD Ischemic cardiomyopathy HX Successful PCI/drug-eluting stents placement to the right coronary artery. 11/01/19 Severe hypokinesis of mid to distal anteroseptal wall and apical wall. Ejection fraction estimated at 35%.11/05 ECHO HTN HLP Tobacco and alcohol abuse Final Diagnosis Claudication Adenocarcinoma of colon - s/p resection on 12/20/2019 CAD, stable Acute blood loss anemia as expected with no need for transfusion at the present time History of peripheral vascular disease Brief Hospital Course Allergies Allergies Coded Allergies Type Severity Reaction Last Updated Verified No Known Drug Allergies 12/18/19 No Vital Signs Vital Signs Date Time Temp Pulse Resp B/P (MAP) Pulse Ox O2 Delivery O2 Flow Rate FiO2 12/26/19 10:29 98.1 89 18 117/67 (84) 92 Nasal Cannula 2.0 98.1 Brief Hospital Course Mr. Hills is a 64 y/o male who recently underwent staged PCI/FALGUNI top LAD and RCA and placed on DAPT with Brilinta presented for aortogram secondary to lifestyle limiting claudication. However pre-procedure labs showed Hgb 6.2 and hence procedure was canceled. He denied any hematemesis, melena or hematochezia. He denied any prior GI issues. He denied any chest pain, orthopnea/PND, palps or syncope. He had quite the prolonged hospital stay, patient underwent colonoscopy and open resection of splenic flexure colon small bowel resection and splenic flexure takedown. For specific details please see below 12/25/2019 Postop day 5 status post colectomy Patient hoping to be discharged home today No acute distress Discussed with nursing staff and family members at bedside Plan of care explained in detail 12/24/2019 Postop Day 4 - colectomy Patient seen and examined NGT has been removed Patient was seen eating Patient in NAD Discussed with RN Reviewed chart 12/23/2019 Postop Day 3 - colectomy Patient seen and examined Discussed with RN Reviewed chart Patient wants the NGT out so he can eat Still waiting for bowel movement, gas Discussed with family member Ordered procalamine Scheduled for abd Xray this morning 12/22/2019 Postop Day 2 - colectomy Patient seen and examined Discussed with RN Discussed with case management Reviewed chart Covid negative as of 12/19/2019 Hx of CAD with 4 stent placement in 10/2019, recently quit smoking two months ago. Patient was sitting with NAD, with tirofiban and iron sucrose being infused, Dilotid UTILITY LOCATOR, Mistry catheter bedside draining, NG suction set to LIS Hope to discharge per surgery Mr Hills is a 64 y/o male w/ h/o CAD s/p stent(s) placement in 10/2019 on Brilinta and ASA and h/o PVD w/ RLE pain here for femoral runoff which was cancelled due to anemia. Denies hematemesis, hematochezia, and melena. Rare heartburn after eating [place] food, maybe takes Rolaids sometimes. No dysphagia, n/v, abd pain, diarrhea, or constipation. Has lost some weight after he quit drinking soda. No previous EGD or colonoscopy, maybe had an UGI once. No GB, liver, pancreas, or PUD history. Rare NSAIDs. 12/14: Hb 6.2 s/p 2u PRBC. 12/15: Patient's hemoglobin remained stable at 8.2. No further bleeding anywhere. 12/16:Patient's hemoglobin remained stable. No bloody stools. 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 12/18: Patient evaluated at bedside. Discussed results of his colonoscopy, s howing near obstructing colon cancer. 12/19: To colectomy today. WBC 13.8, Hb 6.9 today. He has had no bowel movement no vomiting. He is asking for water or ice chips. Pain is well controlled on his UTILITY LOCATOR. Wants to get up. No chest pain shortness of breath or lower extremity pain. Patient was deemed appropriate for discharge from the medical standpoint of view and we were waiting for final recommendations from surgery at the time of this note. Patient was given instructions of the signs and symptoms of concern and when to seek medical attention. He acknowledged understanding, is at bedside, greater than 35 minutes were spent in the discharge process with the patient in counseling coordination of care and arrangements for a safe discharge Assessment Assessment CT abdomen and pelvis IMPRESSION: 1. Colonic mass at the splenic flexure, which appears to extend cephalad cephalad into the mesenteric fat. The appearance is most consistent with malignancy. Small adjacent lymph nodes while ultimately nonspecific, are concerning for metastatic adenopathy. 2. Nonspecific thoracic adenopathy including a 2.1 cm x 1.6 cm pretracheal node . Metastatic disease cannot be excluded on the basis of this study. Consider PET/CT for further characterization. 3. Severe emphysema, with multifocal pleural parenchymal scarring, and calcified pleural plaques. Correlate with history of asbestos exposure 4. Extensive coronary calcification PHYSICIAN SERVICES OPERATIVE REPORT : [id number] Signed Patient: BENJAMÍN HILLS Acct:[id number] Unit: [id number] : 1955 Loc: [address] [place] [address] Room/ Bed: [facility] Age/Sex: 64 / M ADM Status: ADM IN ADM Date: 12/15/19 PROCEDURE Procedure EGD/biopsies, colonoscopy/biopsies, tattooing Indication: PAULINA Meds: per anesthesia Findings: E--Mild, asymptomatic Shatzki's ring at 40cm. G--small HH D--normal to second portion. Biopsies of antrum and duodenum. MORIAH: normal --'Scope advanced to descending/sigmoid junction. At this point, near- obstructing tumor we could not pass. Biopsies taken and area tattooed; more distal tattoo includes a polyp in the area. Mucosa to this level otherwise normal. Diverticula in sigmoid. 4-5mm rectal polyp, biopsied off. Retroflex normal. Amalia. well. IMP: Shatzki's, not dilated as no dysphagia. Small HH. Near-obstructing colon cancer. Rectal polyp. Diverticulosis. REC: Will leave on clears for now pending discussion re: surgery. CT C/A/P. CEA. Await path. ARDEN BOCANEGRA MD Dec 18, 2019 13:33 Preoperative Diagnosis: Splenic flexure tumor Postoperative Diagnosis: Same Procedure: Exploration laparoscopy, open resection of splenic flexure of colon, splenic flexure takedown, small bowel resection Surgeon: Giles [employer] Insulator: Francis ORDAZ Anesthesia: General EBL: 100 mL Specimen: Splenic flexure of colon with en bloc small bowel segment to pathology Drains: Catharpin drain to subcutaneous tissue Complications: None Discharge Information Condition at Discharge: Improved Follow Up: Weeks Disposition/Orders: D/C to Home Scheduled Amlodipine Besylate (Amlodipine Besylate) 10 Mg Tablet, 1 TAB PO DAILY for htn, (Reported) Entered as Reported by: ELIZABETH TORRES on 12/16/1950 Last Action: New Order on 12/16/1950 by ELIZABETH TORRES Aspirin (Aspirin) 81 Mg Tab.chew, 1 TAB PO DAILY, #90 Ref 3 (Reported) Entered as Reported by: CRISTAL ELDER on 05/29/14823 Last Taken: Unknown Dose on 12/15/19 Last Action: HELD on 12/15/191609 by TULIO HOLDER MD Atorvastatin Calcium (Atorvastatin Calcium) 20 Mg Tablet, 40 MG PO QHS for coronary artery disease, meek for 30 Days, #60 Ref 3 Prescribed by: ARIANE CURTIS APRN on 11/02/191224 Last Action: Continued on 12/15/191609 by TULIO HOLDER MD Clopidogrel Bisulfate (Clopidogrel) 75 Mg Tablet, 75 MG PO DAILYWBKFT for PAD for 30 Days, #30 Prescribed by: SONDRA BURDICK MD on 12/26/19 1104 Fluticasone/Salmeterol (Advair 100-50 Diskus) 1 Each Disk.w.dev, 1 PUFF IH BID, #1 Ref 3 (Reported) Entered as Reported by: CRISTAL ELDER on 05/29/14823 Last Action: Converted on 12/15/191609 by TULIO HOLDER MD Losartan Potassium (Losartan Potassium) 50 Mg Tablet, 1 TAB PO DAILY, #90 Ref 3 (Reported) Entered as Reported by: CRISTAL ELDER on 05/29/14823 Last Taken: Unknown Dose on 12/15/19 Last Action: Continued on 12/15/191609 by TULIO HOLDER MD Metoprolol Succinate (Metoprolol Succinate ( Xl )) 25 Mg Tab.er.24h, 50 MG PO DAILY for CHF, CAD for 30 Days, #60 Ref 3 Prescribed by: ARIANE CURTIS APRN on 11/02/19 1225 Last Taken: Unknown Dose on 12/15/19 Last Action: Continued on 12/15/191609 by TULIO HOLDER MD Scheduled PRN Hydrocodone Bit/Acetaminophen (Hydrocodone-Apap 5-325 ) 1 Tab Tablet, 1 TAB PO PRN Q4HRS PRN for MILD-MODERATE PAIN for 3 Days, #12 Prescribed by: SONDRA BURDICK MD on 12/26/19 1104 Nitroglycerin (Nitrostat) 0.4 Mg Tab.subl, 0.4 MG SL PRN Q5MIN PRN for CHEST PAIN for 30 Days, #30 Ref 1 Prescribed by: ARIANE CURTIS APRN on 11/02/19 1225 Last Action: Continued on 12/15/191609 by TULIO HOLDER MD Miscellaneous Medications Multivitamin (Daily Vitamin) 1 Each Tablet, 1 EACH PO, (Reported) Entered as Reported by: CRISTAL ELDER on 05/29/14 0824 Last Action: Converted on 12/15/191609 by TULIO HOLDER MD Justicifation of Admission Dx: Justifications for Admission: Justification of Admission Dx: Yes [place]: Acute STEMI SONDRA BURDICK MD Dec 26, 2019 11:11
--- NOTE | 2019-12-26 12:22 | PDOC ---
Date of Service: DATE: 12/26/19 TIME: 12:20 Subjective: Subjective: Ready to go home. Tolerating soft diet but doesn't care for the food. Hasn't stooled today. Objective: Vital Signs: Vital Signs Date Time Temp Pulse Resp B/P (MAP) Pulse Ox O2 Delivery O2 Flow Rate FiO2 12/26/19 10:29 98.1 89 18 117/67 (84) 92 Nasal Cannula 2.0 98.1 PE: GEN: NAD LUNGS: diminished HEART: RRR ABD: S/ND/NT NEURO/PSYCH: A & O 3 A/P: Colon cancer s/p resection PAULINA CAD, PVD -- DC per primary/surgery. Follow-up w/ surgery and oncology as planned. Justicifation of Admission Dx: Justifications for Admission: Justification of Admission Dx: Yes [place]: Acute STEMI MATIAS MAR Dec 26, 2019 12:22
--- NOTE | 2019-12-26 12:58 | NUR ---
SS following up with discharge planning. Script for oxygen received. SS phoned and faxed script and clinical to [facility], ; fax [phone]. SS will continue to follow for discharge planning.
--- NOTE | 2019-12-26 15:11 | NUR ---
Discharge Note: BENJAMÍN HILLS Discharge instructions and discharge home medications reviewed with Patient and a copy given. All questions have been answered and understanding verbalized. The following instructions and handouts were given: colon resection surg after care, cardiac diet. Discontinued iv line and catheter intact. Patient discharged to with home via private vechile.
== END 2019-12-26 13:40 | disposition home or self-care (01) | DRG 330 ==
LOC: CCL 08:33 → 5 NORTH 10:30 → 2 NORTH 12-21 19:03
PROVIDERS: ADMIT Family Medicine; ATTEND Family Medicine
PROC: 30233N1 Transfusion of Nonautologous Red Blood Cells into Peripheral Vein, Percutaneous Approach (ICD-10-PCS; 2019-12-15)
PROC: 0DB98ZX Excision of Duodenum, Via Natural or Artificial Opening Endoscopic, Diagnostic (ICD-10-PCS; 2019-12-18)
PROC: 0DB68ZX Excision of Stomach, Via Natural or Artificial Opening Endoscopic, Diagnostic (ICD-10-PCS; 2019-12-18)
PROC: 0DBM8ZX Excision of Descending Colon, Via Natural or Artificial Opening Endoscopic, Diagnostic (ICD-10-PCS; 2019-12-18)
PROC: 0DBP8ZX Excision of Rectum, Via Natural or Artificial Opening Endoscopic, Diagnostic (ICD-10-PCS; 2019-12-18)
PROC: 0DB84ZZ Excision of Small Intestine, Percutaneous Endoscopic Approach (ICD-10-PCS; 2019-12-20)
PROC: 0DBN4ZZ Excision of Sigmoid Colon, Percutaneous Endoscopic Approach (ICD-10-PCS; principal; 2019-12-20 10:00)
DX: C18.9 Malignant neoplasm of colon, unspecified (principal); I50.22 Chronic systolic (congestive) heart failure; D62 Acute posthemorrhagic anemia; G45.9 Transient cerebral ischemic attack, unspecified; Z20.828 Contact with and (suspected) exposure to other viral communicable diseases; D50.9 Iron deficiency anemia, unspecified; E78.5 Hyperlipidemia, unspecified; F10.10 Alcohol abuse, uncomplicated; I11.0 Hypertensive heart disease with heart failure; I25.10 Atherosclerotic heart disease of native coronary artery without angina pectoris; I25.5 Ischemic cardiomyopathy; I73.9 Peripheral vascular disease, unspecified; J43.9 Emphysema, unspecified; K57.30 Diverticulosis of large intestine without perforation or abscess without bleeding; K62.1 Rectal polyp; Z53.9 Procedure and treatment not carried out, unspecified reason; Z77.090 Contact with and (suspected) exposure to asbestos; Z95.5 Presence of coronary angioplasty implant and graft; Z87.891 Personal history of nicotine dependence; Z82.49 Family history of ischemic heart disease and other diseases of the circulatory system
CPT/HCPCS: 36415; 43239; 45380; 45381; 71260; 74021; 74177; 80048; 82378; 82607; 83540; 83550; 85025; 85027; 85610; 86850; 86900; 86901; 86920; 87426; 88305; 88342; 94618; 94640; 94760; J0690; J1100; J1170; J1650; J1756; J1940; J2250; J2370; J2405; J2704; J2710; J3010; J3490; J7030; J7120; P9016; P9045; Q9966; Q9967; G0378; J3246; J7613; J7626; U0003-CS

== ENCOUNTER → 2020-01-11 | Outpatient (CLI) | payer BC ==
[2019-12-26 10:29] VITALS: BP 117/67
[~2020-01-11] MED LIST changes: +CLOP75TA PO; -HEPARIN for ARTERIAL LINE 0 ML ONE; +HYDR-2761 PO; -IODIXANOL 320 MG/ML 100 ML VIAL. ONE; -LIDOCAINE 1% Multi-Dose 20 ML VIAL. ONE
[2020-01-11 14:09] LABS: BASO # 0.1 x10^3/uL (0.0-0.2); BASO % 1 % (0-3); EOS # 0.6 x10^3/uL (0.0-0.7); EOS % 7 % (0-3); HEMATOCRIT 36.1 % (39.0-53.0); HEMOGLOBIN 11.7 g/dL (13.0-17.5); LYMPH # 2.5 x10^3/uL (1.0-4.8); LYMPH % 28 % (24-48); MEAN CORPUSCULAR HEMOGLOBIN 23 pg (25-35); MEAN CORPUSCULAR HGB CONC 33 g/dL (31-37); MEAN CORPUSCULAR VOLUME 72 fL (79-100); MONO # 0.9 x10^3/uL (0.0-1.1); MONO % 10 % (0-9); NEUT # 4.8 x10^3/uL (1.8-7.7); NEUT % 53 % (31-73); PLATELET COUNT 385 x10^3/uL (140-400); RED BLOOD COUNT 5.03 x10^6/uL (4.30-5.70); RED CELL DISTRIBUTION WIDTH 30.1 % (11.5-14.5)
[2020-01-11 14:18] LABS: CALCIUM 8.9 mg/dL (8.5-10.1); GFR 75.7; POTASSIUM 4.5 mmol/L (3.5-5.1)
[2020-01-11 14:37] LABS: ALBUMIN 3.4 g/dL (3.4-5.0); ALBUMIN/GLOBULIN RATIO 0.9 (1.0-1.7); ANISOCYTOSIS MARKED; HYPOCHROMIA SLIGHT; MICROCYTOSIS MOD; PLT ESTIMATE ADEQUATE (ADEQUATE); POIKILOCYTOSIS SLIGHT; TOTAL BILIRUBIN 0.3 mg/dL (0.2-1.0); TOTAL PROTEIN 7.2 g/dL (6.4-8.2)
[2020-01-11 14:38] LABS: OVALOCYTES FEW; SCHISTOCYTES FEW
== END | disposition home or self-care (01) ==
LOC: ONCLAB 13:56
PROVIDERS: ATTEND Internal Medicine Hematology & Oncology
DX: C18.5 Malignant neoplasm of splenic flexure (principal)
CPT/HCPCS: 36415; 80053; 82378; 82728; 83540; 83550; 85025